=== PATIENT | male | born 1965 | race Caucasian/White ===

== ENCOUNTER 2018-06-24 02:39 | Observation (INO) | payer MEDICAID ==
[~2018-06-24] VITALS: Ht 180.3 cm; Wt 106.8 kg
--- NOTE | ~2018-06-24 | DS ---
PATIENT:MEHDI RANDALL :65 MEDICAL RECORD: [id number] DISCHARGE SUMMARY ADMISSION DATE: 06/24/18 DISCHARGE DATE: 06/24/18 DATE OF ADMISSION: 06/24/2018 DATE OF DISCHARGE: 06/24/2018. ADMISSION DIAGNOSES: Chest pain, anginal symptoms with risk factors, COPD. DISCHARGE DIAGNOSES: Patient left AMA, concerned for the above. HOSPITAL COURSE: The patient was admitted to the ER, was seen in the ER. Cardiology was consulted. Discussed case with cardiology, also consulted pulmonology. The patient became frustrated with being stuck in the ER with no beds available in the hospital, signed out AMA. See chart for further details. TRANSINT:[id number] Voice Confirmation ID: [id number] DOCUMENT ID: [id number] KADY SPANGLER DO at 0927 CC: [id number] DICTATION DATE: 07/19/18 120 DUCTFIXING PLUMBER: 07/20/18 0147 DIS IN 06/24/18 [place] [id number] [place] [address]
--- NOTE | ~2018-06-24 | HP ---
PATIENT: MEHDI RANDALL MEDICAL RECORD: [id number] ACCOUNT: [id number] [facility] : 65 ADMISSION DATE: 06/24/18 PCP: KADY SPANGLER DO HISTORY AND PHYSICAL EXAMINATION HISTORY OF PRESENT ILLNESS: A 53-year-old male presented to the Emergency Room with shortness of breath, chest pain and pressure. The patient has been having worsening shortness of breath over the past 2 weeks, had been having chest pain, heaviness, feels like something sitting on his chest pain off and on for the past 2 weeks. No reported prior cardiac history. Does have a history of COPD, obstructive sleep apnea, has had episodic chills over the past week, has not been seen in the clinic in over a year. MEDICATIONS: No reported current medications. ALLERGIES: Reported as CONTRAST IODINE. SOCIAL HISTORY: Former smoker. REVIEW OF SYSTEMS: GENERAL: Admits intentional weight loss. HEENT: Denies cephalgia, visual changes, tinnitus, epistaxis, or dysphagia. CARDIOVASCULAR: Chest pain, pressure as above. MUSCULOSKELETAL: No acute changes. ENDOCRINE: Denies polyuria, polydipsia or polyphagia. PULMONARY: Denies hemoptysis. Does admit to shortness of breath. History as above. PHYSICAL EXAMINATION: VITAL SIGNS: Temp 98.1, heart rate 83, respirations 15, blood pressure 118/90, O2 sats 94%. On admission, heart rate was 121, respirations were 22, O2 sats 93%. NEUROLOGIC: The patient is alert and oriented, no present distress. HEENT: Normocephalic, atraumatic. Eyes: Pupils are equally round and reactive. Ears: Canals patent, TMs are intact. Nose: Nares patent without drainage. Throat: No erythema, no exudates. NECK: Supple. No lymphadenopathy, no JVD. HEART: Regular rate and rhythm. No S3, S4, no rub. LUNGS: Clear to auscultation bilaterally. Breathing is nonlabored. ABDOMEN: Soft, nontender. Bowel sounds positive. EXTREMITIES: Present times 4. NEUROLOGIC: Intact. SKIN: Warm and dry. No rash. LABORATORY DATA: Troponin less than 0.017. CBC: White count 11.7, hemoglobin 16.9, hematocrit 49.2, platelets 236. D-dimer is 0.27. Chemistry shows a sodium of 141, potassium 3.6, chloride 105, bicarbonate 29.6, BUN 13, creatinine 0.9, glucose 127. T-bili is 0.22. Lipase 153. Chest x-ray: No evidence of pneumothorax, no acute cardiopulmonary process. CT of the chest: Mild ground-glass density opacity changes with mosaic pattern in upper lobes, otherwise no focal consolidation of the lungs. EKG: Normal sinus rhythm, rate of 85. ABG: pH 7.447, pCO2 36.7, pO2 of 57, bicarbonate 25.3, O2 sat is 90.7. HISTORY AND PHYSICAL [id number] MEHDI RANDALL ASSESSMENT AND PLAN: 1. Chest pain, pressure, heaviness, multiple risk factors for cardiovascular disease. Cardiology consulted. 2. COPD with likely exacerbation, nebulizers q.i.d. We will consult pulmonology. 3. Polycythemia vera. Aspirin 81 mg 2 p.o. daily. Supportive care. TRANSINT:[id number] Voice Confirmation ID: [id number] DOCUMENT ID: [id number] KADY SPANGLER DO at 0809 CC: [id number] DICTATION DATE: 06/24/18 0805 PERINATAL BREASTFEEDING ASSISTANT: 06/24/18 1027 DIS IN 06/24/18 [place] [id number] [facility] [place] [address]
[~2018-06-24 02:39] MED LIST: FLUTICASONE PRO16 GM NS; HYDROCODON-ACE1 EAC7; HYDROCODONE-APA1 TAB PO; INDOCIN25 MG PO; IPRAT-ALBUT 0.5-3 ML IH; LEVAQUIN500 MG PO; MORPHINE SULF5 MG/ML IV; OMNICEF300 MG PO; ONDANSETRON4 MG/2 M3 IV; PERFOROMIS20 MCG/21 NEB; PREDNISONE20 MG PO; PULMICORT0.5 MG/21 NEB; ROBAXIN-750750 MG PO; ROCEPHIN 1 GM IN1 GM IV; SINGULAIR10 MG PO; STERAPRED DS 1210 MG PO; ZITHROMAX 500M500 MG IV
[2018-06-24 02:45] VITALS: Ht 180.3 cm; Wt 106.8 kg
[2018-06-24 03:14] LABS: BASOPHILS 0.4 % (0-2); EOSINOPHILS 3.7 % (0-7); HEMATOCRIT 49.2 % (42.0-54.0); HEMOGLOBIN 16.9 g/dL (13.5-17.5); IMMATURE GRANULOCYTES 0.7 % (0-5); LYMPHOCYTES 19.4 % (15-50); MCH 31.8 pg (26.0-34.0); MCHC 34.3 g/dL (31.0-37.0); MCV 92.5 fL (80.0-100.0); MEAN PLATELET VOLUME 9.9 fL (7.4-10.4); MONOCYTES 9.6 % (2-11); NEUTROPHILS 66.2 % (40-80); PLATELET COUNT 236 10x3/uL (130-400); RBC 5.32 10x6/uL (4.20-6.10); WBC 11.7 10x3/uL (4.8-10.8)
[2018-06-24 03:33] LABS: ALBUMIN 2.8 g/dL (3.4-5.0); ALKALINE PHOSPHATASE 208 U/L (46-116); ALT (SGPT) 21 U/L (10-68); BILIRUBIN - TOTAL 0.22 mg/dL (0.2-1.3); CALC OSMOLALITY 282 mosm/kg (275-300); CALCIUM 8.5 mg/dL (8.5-10.1); CARBON DIOXIDE 29.6 mmol/L (21.0-32.0); CHLORIDE - SERUM 105 mmol/L (98-107); CREATININE - SERUM 0.9 mg/dL (0.6-1.3); GLUCOSE 127 mg/dL (74-106); POTASSIUM - SERUM 3.6 mmol/L (3.5-5.1); PROTEIN - SERUM 6.9 g/dL (6.4-8.2); SODIUM 141 mmol/L (136-145); UREA NITROGEN 13 mg/dL (7-18); eGFR NON AFRICAN AMERICAN > 90 mL/min (90-120)
[2018-06-24 03:42] LABS: LIPASE 153 U/L (73-393); PRO BNP 46 pg/mL (0-125); TROPONIN-I < 0.017 ng/mL (0.000-0.060)
[2018-06-24 04:00] VITALS: BP 111/69
[2018-06-24 05:00] VITALS: BP 130/86
[2018-06-24 06:00] VITALS: BP 118/90
[2018-06-24 07:00] VITALS: BP 119/67
[2018-06-24 11:00] VITALS: BP 110/86
[2018-06-24 14:02] VITALS: BP 133/89
== END 2018-06-24 14:04 | disposition left against medical advice (07) ==
LOC: D.ER 02:39 → D.EDHOLD 06:03 → OBSVTIME 06:03 → D.EDHOLD 14:04
PROVIDERS: Family Medicine
DX: R07.9 Chest pain, unspecified (principal); J44.9 Chronic obstructive pulmonary disease, unspecified; G47.33 Obstructive sleep apnea (adult) (pediatric); D45 Polycythemia vera; Z87.891 Personal history of nicotine dependence

== ENCOUNTER 2019-01-15 19:11 | Inpatient (IN) | payer MEDICAID ==
[~2019-01-15] VITALS: Ht 180.3 cm; Wt 127.3 kg
[2019-01-15 20:08] LABS: BASOPHILS 0.2 % (0-2); EOSINOPHILS 0.3 % (0-7); HEMATOCRIT 54.4 % (42.0-54.0); IMMATURE GRANULOCYTES 0.5 % (0-5); LYMPHOCYTES 7.3 % (15-50); MCH 31.4 pg (26.0-34.0); MCHC 34.9 g/dL (31.0-37.0); MCV 89.8 fL (80.0-100.0); MEAN PLATELET VOLUME 10.6 fL (7.4-10.4); MONOCYTES 10.5 % (2-11); NEUTROPHILS 81.2 % (40-80); RBC 6.06 10x6/uL (4.20-6.10); RDW 14.3 % (11.5-14.5); WBC 12.8 10x3/uL (4.8-10.8)
[2019-01-15 20:13] LABS: PLATELET COUNT 182 10x3/uL (130-400)
[2019-01-15 20:16] LABS: APTT 40.2 SECONDS (22.8-39.4); INR 1.25 (0.85-1.17); PROTIME 15.1 SECONDS (11.6-15.0)
[2019-01-15 21:02] LABS: ALBUMIN 2.6 g/dL (3.4-5.0); ALKALINE PHOSPHATASE 40 U/L (46-116); ALT (SGPT) 15 U/L (10-68); CALC OSMOLALITY 266 mosm/kg (275-300); CARBON DIOXIDE 27.5 mmol/L (21.0-32.0); CHLORIDE - SERUM 99 mmol/L (98-107); CREATININE - SERUM 0.9 mg/dL (0.6-1.3); GLUCOSE 154 mg/dL (74-106); POTASSIUM - SERUM 3.7 mmol/L (3.5-5.1); SODIUM 131 mmol/L (136-145); UREA NITROGEN 15 mg/dL (7-18); eGFR NON AFRICAN AMERICAN > 90 mL/min (90-120)
[2019-01-15 21:15] LABS: CKMB 0.7 U/L (0.0-3.6); CREATINE KINASE 94 UL (21-232); PRO BNP 90 pg/mL (0-125); TROPONIN-I < 0.017 ng/mL (0.000-0.060)
[2019-01-15] MEDS ORDERED: COMBIVENT RESPIM4 GM INH (21:53)
[2019-01-15] MEDS ORDERED: ALBUTEROL SULF8.5 GM INH (21:53)
[2019-01-15 21:54] VITALS: BP 117/71; Ht 180.3 cm; Wt 127.3 kg
[2019-01-16 03:00] VITALS: BP 126/86
[2019-01-16 06:57] LABS: BASOPHILS 0.1 % (0-2); EOSINOPHILS 0 % (0-7); HEMATOCRIT 54.3 % (42.0-54.0); HEMOGLOBIN 18.3 g/dL (13.5-17.5); IMMATURE GRANULOCYTES 0.4 % (0-5); LYMPHOCYTES 2.9 % (15-50); MCH 30.9 pg (26.0-34.0); MCHC 33.7 g/dL (31.0-37.0); MCV 91.7 fL (80.0-100.0); MEAN PLATELET VOLUME 10.8 fL (7.4-10.4); MONOCYTES 1.5 % (2-11); NEUTROPHILS 95.1 % (40-80); PLATELET COUNT 158 10x3/uL (130-400); RBC 5.92 10x6/uL (4.20-6.10); RDW 14.6 % (11.5-14.5); WBC 12.8 10x3/uL (4.8-10.8)
[2019-01-16 07:20] LABS: ALBUMIN 2.7 g/dL (3.4-5.0); ALKALINE PHOSPHATASE 42 U/L (46-116); ALT (SGPT) 18 U/L (10-68); BILIRUBIN - TOTAL 0.51 mg/dL (0.2-1.3); CALCIUM 8.1 mg/dL (8.5-10.1); CHLORIDE - SERUM 101 mmol/L (98-107); CREATININE - SERUM 0.9 mg/dL (0.6-1.3); PROTEIN - SERUM 7.6 g/dL (6.4-8.2); SODIUM 134 mmol/L (136-145); eGFR NON AFRICAN AMERICAN > 90 mL/min (90-120)
[2019-01-16 07:22] LABS: CALC OSMOLALITY 272 mosm/kg (275-300); GLUCOSE 215 mg/dL (74-106); POTASSIUM - SERUM 4.8 mmol/L (3.5-5.1); UREA NITROGEN 11 mg/dL (7-18)
[2019-01-16 09:04] VITALS: BP 119/69
--- NOTE | 2019-01-16 10:00 | NUR ---
ALERT AND ORIENTED. O2 3 LITERS N/C. DENIES ANY SOB AT THIS TIME. DIMINISHED BREATH SOUNDS TO BLQ POSTERIIOR. UP ADLIB WITH IVF INFUSING AT PRESCRIBED RATE TO RT. A/C. ENCOURAGED TO RIO CALL LIGHT FOR ASSSIT.
[2019-01-16 13:22] VITALS: BP 126/77
--- NOTE | 2019-01-16 14:04 | NUR ---
PT REFUSING TO STAY TO RECEIVE TREATMENT. INSTRUCTED ON BENEFITS OF IMPROVED CARE WITH STAYING. STATED WAS LEAVING. INSTRUCTED ON LEAVING AMA AND VERBALIZED WANTED TO LEAVE. DR. LOPEZ NOTIFIED. IV DISCONTINUED WITH SIGNING AMA FORM. LEFT UNDER THE CARE OF .
== END 2019-01-16 14:10 | disposition left against medical advice (07) | DRG 193 ==
LOC: D.ER 19:11 → D.MS 20:28
PROVIDERS: Family Medicine; ADMIT Emergency Medicine; ATTEND Emergency Medicine
DX: J18.9 Pneumonia, unspecified organism (principal); J96.01 Acute respiratory failure with hypoxia; J44.0 Chronic obstructive pulmonary disease with (acute) lower respiratory infection; F17.213 Nicotine dependence, cigarettes, with withdrawal; E87.0 Hyperosmolality and hypernatremia; E86.0 Dehydration; E66.9 Obesity, unspecified

== ENCOUNTER 2019-01-18 02:58 | Inpatient (IN) | payer MEDICAID ==
[~2019-01-18] VITALS: Ht 180.3 cm; Wt 127.0 kg
[~2019-01-18 02:58] MED LIST changes: +ALBUTEROL SULF8.5 GM INH; +COMBIVENT RESPIM4 GM INH
[2019-01-18 03:22] LABS: BASOPHILS 0.1 % (0-2); EOSINOPHILS 0.5 % (0-7); HEMATOCRIT 51.6 % (42.0-54.0); IMMATURE GRANULOCYTES 0.6 % (0-5); LYMPHOCYTES 7.9 % (15-50); MCH 30.6 pg (26.0-34.0); MCHC 32.9 g/dL (31.0-37.0); MCV 92.8 fL (80.0-100.0); MEAN PLATELET VOLUME 10.9 fL (7.4-10.4); NEUTROPHILS 79.9 % (40-80); PLATELET COUNT 180 10x3/uL (130-400); RBC 5.56 10x6/uL (4.20-6.10); RDW 14.6 % (11.5-14.5); WBC 11.7 10x3/uL (4.8-10.8)
[2019-01-18 03:27] LABS: APTT 33.2 SECONDS (22.8-39.4); INR 1.08 (0.85-1.17); PROTIME 13.5 SECONDS (11.6-15.0)
[2019-01-18 03:32] LABS: ALBUMIN 2.6 g/dL (3.4-5.0); ALKALINE PHOSPHATASE 43 U/L (46-116); BILIRUBIN - TOTAL 0.24 mg/dL (0.2-1.3); CALCIUM 7.8 mg/dL (8.5-10.1); CARBON DIOXIDE 28.7 mmol/L (21.0-32.0); CHLORIDE - SERUM 102 mmol/L (98-107); CREATININE - SERUM 0.9 mg/dL (0.6-1.3); PROTEIN - SERUM 6.6 g/dL (6.4-8.2); SODIUM 137 mmol/L (136-145); UREA NITROGEN 13 mg/dL (7-18); eGFR NON AFRICAN AMERICAN > 90 mL/min (90-120)
[2019-01-18 03:36] LABS: ALT (SGPT) 23 U/L (10-68); CALC OSMOLALITY 283 mosm/kg (275-300); GLUCOSE 273 mg/dL (74-106); POTASSIUM - SERUM 3.9 mmol/L (3.5-5.1)
[2019-01-18 03:44] LABS: CKMB 2.5 U/L (0.0-3.6); CREATINE KINASE 44 UL (21-232); PRO BNP 180 pg/mL (0-125); TROPONIN-I < 0.017 ng/mL (0.000-0.060)
[2019-01-18 05:29] VITALS: BP 126/76; BMI 39.1
[2019-01-18 09:00] VITALS: BP 123/75
[2019-01-18 12:00] VITALS: BP 112/57
[2019-01-18 13:16] VITALS: Ht 180.3 cm; Wt 127.0 kg
[2019-01-18 15:51] LABS: APPEARANCE CLEAR (CLEAR); BILIRUBIN NEGATIVE (NEGATIVE); COLOR YELLOW (YELLOW); GLUCOSE 1000 mg/dL (NEGATIVE); KETONE NEGATIVE (NEGATIVE); NITRITE NEGATIVE (NEGATIVE); PROTEIN NEGATIVE (NEGATIVE); SPECIFIC GRAVITY 1.015 (1.005-1.020); UROBILINOGEN NORMAL (NORMAL)
--- NOTE | 2019-01-18 16:15 | MORECARE ---
CASE MANAGEMENT DISCHARGE SUMMARY PATIENT: MEHDI RANDALL UNIT: [id number] ADM DATE: 01/18/19 AGE: 53 : 65 SEX: M ROOM/BED: D.2223 AUTHOR: LINDSAY SON PHYSICIAN: REFERRING PHYSICIAN: EDY LOPEZ MD DATE OF SERVICE: 01/18/19 Discharge Plan Patient Name: MEHDI RANDALL Facility: [facility]:[place] : 1965 Planned Disposition: Anticipated Discharge Date: Discharge Date: Expected LOS: Initial Reviewer: [email or web address] Initial Review Date: 01/18/2019 Generated: 01/18/19 5:14 pm Comments DCP- Discharge Planning Updated by [email or web address]: Rehana Devika on 01/18/19 3:[address] CM went to room to discuss his CPAP and supplies and he is asleep. I have an order about having [facility] in [place] to replace his tubing and mask for his CPAP. I called and spoke to Ann and she states if he is their patient, she will have them deliver it to his room. She will call me back if he is not their patient. CM will meet with him tomorrow. External Providers External Provider: [facility] Next Contact Date: Service Request Date: Service Type: Resolution: Reviewer: Comments: Patient Name: MEHDI RANDALL Page [phone] at 1615 All edits/amendments must be made on the electronic document DICTATION DATE: 01/18/19 1614 OFFSET PLATEMAKER: HARIS 01/18/19 1614 RPT#: [id number] DC DATE: STATUS: ADM IN [facility] [address] [place] [address] END OF REPORT
--- NOTE | 2019-01-18 17:02 | MORECARE ---
CASE MANAGEMENT DISCHARGE SUMMARY PATIENT: MEHDI RANDALL UNIT: [id number] ADM DATE: 01/18/19 AGE: 53 : 65 SEX: M ROOM/BED: D.2223 AUTHOR: LINDSAY SON PHYSICIAN: REFERRING PHYSICIAN: EDY LOPEZ MD DATE OF SERVICE: 01/18/19 Discharge Plan Patient Name: MEHDI RANDALL Facility: [facility]:[place] : 1965 Planned Disposition: Home Anticipated Discharge Date: Discharge Date: Expected LOS: Initial Reviewer: [email or web address] Initial Review Date: 01/18/2019 Generated: 01/18/19 6:02 pm Comments DCP- Discharge Planning Updated by [email or web address]: Rehana Devika on 01/18/19 3:[address] CM went to room to discuss his CPAP and supplies and he is asleep. I have an order about having [facility] in [place] to replace his tubing and mask for his CPAP. I called and spoke to Ann and she states if he is their patient, she will have them deliver it to his room. She will call me back if he is not their patient. CM will meet with him tomorrow. DCPIA - Discharge Planning Initial Assessment Updated by [email or web address]: Rehana Devika on 01/18/19 4:58 pm * Is the patient Alert and Oriented? Yes * How many steps to enter\exit or inside your home? 0/0 * PCP None * Pharmacy [facility] * Preadmission Environment Home with Family * ADLs Independent * Equipment CPAP * List name and contact numbers for known caregivers / representatives who currently or will assist patient after discharge: Puja ratliff?e - [phone] * Verbal permission to speak to the caregivers and representatives has been obtained from the patient. Yes * Community resources currently utilized None * Additional services required to return to the preadmission environment? Yes * Can the patient safely return to the preadmission environment? Yes * Has this patient been hospitalized within the prior 30 days at any hospital? Yes Last DP export: 01/18/19 3:15 pm Patient Name: MEHDI RANDALL Page [phone] at 1702 All edits/amendments must be made on the electronic document DICTATION DATE: 01/18/191700 SENIOR HEALTH PHYSICS TECHNICIAN: HARIS 01/18/191700 RPT#: [id number] DC DATE: STATUS: ADM IN [facility] [address] [place] [address] END OF REPORT
--- NOTE | 2019-01-18 17:12 | MORECARE ---
CASE MANAGEMENT DISCHARGE SUMMARY PATIENT: MEHDI RANDALL UNIT: [id number] ADM DATE: 01/18/19 AGE: 53 : 65 SEX: M ROOM/BED: D.2223 AUTHOR: LINDSAY SON PHYSICIAN: REFERRING PHYSICIAN: EDY LOPEZ MD DATE OF SERVICE: 01/18/19 Discharge Plan Patient Name: MEHDI RANDALL Facility: [facility]:[place] : 1965 Planned Disposition: Home Anticipated Discharge Date: Discharge Date: Expected LOS: Initial Reviewer: [email or web address] Initial Review Date: 01/18/2019 Generated: 01/18/19 6:12 pm Comments DCP- Discharge Planning Updated by [email or web address]: Rehana Fortune on 01/18/19 4:[address] Patient Name: MEHDI RANDALL Admission Status: ER Accout number: [id number] Admission Date: 01-18-2019 : 1965 Admission Diagnosis: Attending: EDY LOPEZ Current LOS: 1 Anticipated DC Date: Planned Disposition: Home Primary Insurance: MEDICAID [place] Discharge Planning Comments: CM met with patient to discuss discharge planning/needs, he is alone in the room. He states he lives with his fianc?e. States he is independent with all ADL's and AIDL's. I discussed availability of rehab, home health and additional DME. I informed him that I had an order to replace his CPAP equipment, I informed him that I had called [facility] and they did not have a record of his CPAP. Patient states he bought it on line for douglas. He states Dr. Bhatti should have a record of his sleep study. I called Dr. Bhatti's office and spoke to Etta. She will fax his sleep study from 2013. She states they have not seen him since 2016. He does not have a PCP. I gave the numbers to [facility], Physician referral line and [facility]. I will attempt to call [facility] when they are open in the morning. CM will continue to follow and assist with discharge planning/needs. Bench Patternmaker Metal: Rehana Fortune DCP- Discharge Planning Updated by [email or web address]: Rehana Fortune on 01/18/19 3:[address] CM went to room to discuss his CPAP and supplies and he is asleep. I have an order about having [facility] in [place] to replace his tubing and mask for his CPAP. I called and spoke to Ann and she states if he is their patient, she will have them deliver it to his room. She will call me back if he is not their patient. CM will meet with him tomorrow. DCPIA - Discharge Planning Initial Assessment Updated by [email or web address]: Rehana Fortune on 01/18/19 4:58 pm * Is the patient Alert and Oriented? Yes * How many steps to enter\exit or inside your home? 0/0 * PCP None * Pharmacy [place] * Preadmission Environment Home with Family * ADLs Independent * Equipment CPAP * List name and contact numbers for known caregivers / representatives who currently or will assist patient after discharge: Puja ratliff?e - [phone] * Verbal permission to speak to the caregivers and representatives has been obtained from the patient. Yes * Community resources currently utilized None * Additional services required to return to the preadmission environment? Yes * Can the patient safely return to the preadmission environment? Yes * Has this patient been hospitalized within the prior 30 days at any hospital? Yes Last DP export: 01/18/19 4:02 pm Patient Name: MEHDI RANDALL Page [phone] at 1712 All edits/amendments must be made on the electronic document DICTATION DATE: 01/18/191711 TOW MOTOR OPERATOR: HARIS 01/18/191711 RPT#: [id number] DC DATE: STATUS: ADM IN [facility] [address] [place] [address] END OF REPORT
[2019-01-18 18:35] VITALS: BP 133/71
[2019-01-18 20:00] VITALS: BP 123/61
[2019-01-19] VITALS: BP 133/75
[2019-01-19 04:30] VITALS: BP 124/73
[2019-01-19 05:15] LABS: BASOPHILS 0 % (0-2); EOSINOPHILS 0 % (0-7); HEMOGLOBIN 17.3 g/dL (13.5-17.5); IMMATURE GRANULOCYTES 0.4 % (0-5); LYMPHOCYTES 4.5 % (15-50); MCH 30.5 pg (26.0-34.0); MCHC 32.6 g/dL (31.0-37.0); MCV 93.5 fL (80.0-100.0); MEAN PLATELET VOLUME 11.7 fL (7.4-10.4); MONOCYTES 4.7 % (2-11); NEUTROPHILS 90.4 % (40-80); PLATELET COUNT 208 10x3/uL (130-400); RBC 5.67 10x6/uL (4.20-6.10); RDW 14.2 % (11.5-14.5); WBC 8.9 10x3/uL (4.8-10.8)
[2019-01-19 05:30] LABS: CALC OSMOLALITY 287 mosm/kg (275-300); CALCIUM 8.7 mg/dL (8.5-10.1); CARBON DIOXIDE 28.9 mmol/L (21.0-32.0); CHLORIDE - SERUM 101 mmol/L (98-107); CREATININE - SERUM 0.9 mg/dL (0.6-1.3); GLUCOSE 267 mg/dL (74-106); POTASSIUM - SERUM 4.3 mmol/L (3.5-5.1); SODIUM 139 mmol/L (136-145); UREA NITROGEN 14 mg/dL (7-18); eGFR NON AFRICAN AMERICAN > 90 mL/min (90-120)
[2019-01-19 07:00] VITALS: BP 136/91
--- NOTE | 2019-01-19 09:33 | MORECARE ---
CASE MANAGEMENT DISCHARGE SUMMARY PATIENT: MEHDI RANDALL UNIT: [id number] ADM DATE: 01/18/19 AGE: 53 : 65 SEX: M ROOM/BED: D.2223 AUTHOR: LINDSAY SON PHYSICIAN: REFERRING PHYSICIAN: EDY LOPEZ MD DATE OF SERVICE: 01/19/19 Discharge Plan Patient Name: MEHDI RANDALL Facility: [facility]:[place] : 1965 Planned Disposition: Home Anticipated Discharge Date: Discharge Date: Expected LOS: Initial Reviewer: [email or web address] Initial Review Date: 01/18/2019 Generated: 01/19/19 10:33 am Comments DCP- Discharge Planning Updated by [email or web address]: Rehana Fortune on 01/19/19 8:[address] Spoke with Ann at [facility] and faxed order and sleep study report from Dr. Bhatti's office. She states she will need other notes from Dr. Bhatti's office in order to get a CPAP and will also need authorization from Medicaid. CM will continue to assist with discharge planning/needs. DCP- Discharge Planning Updated by [email or web address]: Rehana Fortune on 01/18/19 4:[address] Patient Name: MEHDI RANDALL Admission Status: ER Accout number: [id number] Admission Date: 01-18-2019 : 1965 Admission Diagnosis: Attending: EDY LOPEZ Current LOS: 1 Anticipated DC Date: Planned Disposition: Home Primary Insurance: MEDICAID [place] Discharge Planning Comments: CM met with patient to discuss discharge planning/needs, he is alone in the room. He states he lives with his fianc?e. States he is independent with all ADL's and AIDL's. I discussed availability of rehab, home health and additional DME. I informed him that I had an order to replace his CPAP equipment, I informed him that I had called [facility] and they did not have a record of his CPAP. Patient states he bought it on line for douglas. He states Dr. Bhatti should have a record of his sleep study. I called Dr. Bhatti's office and spoke to Etta. She will fax his sleep study from 2013. She states they have not seen him since 2017. He does not have a PCP. I gave the numbers to [facility], Physician referral line and [facility]. I will attempt to call [facility] when they are open in the morning. CM will continue to follow and assist with discharge planning/needs. Braille Proofreader: Rehana Fortune DCP- Discharge Planning Updated by [email or web address]: Rehana Fortune on 01/18/19 3:[address] CM went to room to discuss his CPAP and supplies and he is asleep. I have an order about having [facility] in [place] to replace his tubing and mask for his CPAP. I called and spoke to Ann and she states if he is their patient, she will have them deliver it to his room. She will call me back if he is not their patient. CM will meet with him tomorrow. DCPIA - Discharge Planning Initial Assessment Updated by [email or web address]: Rehana Fortune on 01/18/19 4:58 pm * Is the patient Alert and Oriented? Yes * How many steps to enter\exit or inside your home? 0/0 * PCP None * Pharmacy [place] * Preadmission Environment Home with Family * ADLs Independent * Equipment CPAP * List name and contact numbers for known caregivers / representatives who currently or will assist patient after discharge: Puja ratliff?e - [phone] * Verbal permission to speak to the caregivers and representatives has been obtained from the patient. Yes * Community resources currently utilized None * Additional services required to return to the preadmission environment? Yes * Can the patient safely return to the preadmission environment? Yes * Has this patient been hospitalized within the prior 30 days at any hospital? Yes Last DP export: 01/18/19 4:12 pm Patient Name: MEHDI RANDALL Page [phone] at 0933 All edits/amendments must be made on the electronic document DICTATION DATE: 01/19/19931 CAREER CENTER ADVISOR: HARIS 01/19/19931 RPT#: [id number] DC DATE: STATUS: ADM IN [facility] [address] [place] [address] END OF REPORT
[2019-01-19 11:00] VITALS: BP 128/87
--- NOTE | 2019-01-19 13:00 | MORECARE ---
CASE MANAGEMENT DISCHARGE SUMMARY PATIENT: MEHDI RANDALL UNIT: [id number] ADM DATE: 01/18/19 AGE: 53 : 65 SEX: M ROOM/BED: D.2223 AUTHOR: LINDSAY SON PHYSICIAN: REFERRING PHYSICIAN: EDY LOPEZ MD DATE OF SERVICE: 01/19/19 Discharge Plan Patient Name: MEHDI RANDALL Facility: [facility]:[place] : 1965 Planned Disposition: Home Anticipated Discharge Date: Discharge Date: Expected LOS: Initial Reviewer: [email or web address] Initial Review Date: 01/18/2019 Generated: 01/19/19 2:00 pm Comments DCP- Discharge Planning Updated by [email or web address]: Rehana Fortune on 01/19/19 11:[address] Met with patient and his fianc?e about finding a primary care doctor. I provided them with the [facility] number to have them call today. I also spoke with Dr. Bhatti and he states patient will need a nebulizer for home use. I faxed the order and spoke to Brittny. CM will continue to follow and assist with discharge planning/needs. DCP- Discharge Planning Updated by [email or web address]: Rehana Fortune on 01/19/19 8:[address] Spoke with Ann at [facility] and faxed order and sleep study report from Dr. Bhatti's office. She states she will need other notes from Dr. Bhatti's office in order to get a CPAP and will also need authorization from Medicaid. CM will continue to assist with discharge planning/needs. DCP- Discharge Planning Updated by [email or web address]: Rehana Fortune on 01/18/19 4:[address] Patient Name: MEHDI RANDALL Admission Status: ER Accout number: [id number] Admission Date: 01-18-2019 : 1965 Admission Diagnosis: Attending: EDY LOPEZ Current LOS: 1 Anticipated DC Date: Planned Disposition: Home Primary Insurance: MEDICAID [place] Discharge Planning Comments: CM met with patient to discuss discharge planning/needs, he is alone in the room. He states he lives with his fianc?e. States he is independent with all ADL's and AIDL's. I discussed availability of rehab, home health and additional DME. I informed him that I had an order to replace his CPAP equipment, I informed him that I had called [facility] and they did not have a record of his CPAP. Patient states he bought it on line for douglas. He states Dr. Bhatti should have a record of his sleep study. I called Dr. Bhatti's office and spoke to Etta. She will fax his sleep study from 2013. She states they have not seen him since 2016. He does not have a PCP. I gave the numbers to [facility], Physician referral line and [facility]. I will attempt to call [facility] when they are open in the morning. CM will continue to follow and assist with discharge planning/needs. Green End Man: Rehana Fortune DCP- Discharge Planning Updated by [email or web address]: Rehana Fortune on 01/18/19 3:[address] CM went to room to discuss his CPAP and supplies and he is asleep. I have an order about having [facility] in [place] to replace his tubing and mask for his CPAP. I called and spoke to Ann and she states if he is their patient, she will have them deliver it to his room. She will call me back if he is not their patient. CM will meet with him tomorrow. DCPIA - Discharge Planning Initial Assessment Updated by [email or web address]: Rehana Fortune on 01/18/19 4:58 pm * Is the patient Alert and Oriented? Yes * How many steps to enter\exit or inside your home? 0/0 * PCP None * Pharmacy [place] * Preadmission Environment Home with Family * ADLs Independent * Equipment CPAP * List name and contact numbers for known caregivers / representatives who currently or will assist patient after discharge: Puja ratliff?e - [phone] * Verbal permission to speak to the caregivers and representatives has been obtained from the patient. Yes * Community resources currently utilized None * Additional services required to return to the preadmission environment? Yes * Can the patient safely return to the preadmission environment? Yes * Has this patient been hospitalized within the prior 30 days at any hospital? Yes Coverage Notice Reviewer: [email or web address] - Rehana Fortune Notice Issued Date-Time: 01/18/2019 16:55 Notice Type: Patient Choice Letter Notice Delivered To: Patient Relationship to Patient: Cell Pourer Name: Delivery Method: HAND - Hand Delivered Naomi Days: Prior Verbal Notification: Recipient Understood Notice: Yes Recipient Signature: Yes Med Rec Note Co-signed by Attending: Coverage Notice Comment: YAQUELIN for 1. [facility] 2. Carol Last DP export: 01/19/19 8:33 am Patient Name: MEHDI RANDALL Page [id number] at 1300 All edits/amendments must be made on the electronic document DICTATION DATE: 01/19/19 1300 PUBLIC INTERVIEWER: HARIS 01/19/19 1300 RPT#: [id number] DC DATE: STATUS: ADM IN [facility] [address] [place] [address] END OF REPORT
[2019-01-19 17:11] VITALS: BP 124/62
[2019-01-20] VITALS: BP 144/80
[2019-01-20 04:00] VITALS: BP 128/78
[2019-01-20 06:47] LABS: BASOPHILS 0.2 % (0-2); EOSINOPHILS 0.1 % (0-7); HEMATOCRIT 51.4 % (42.0-54.0); HEMOGLOBIN 17.2 g/dL (13.5-17.5); IMMATURE GRANULOCYTES 1.8 % (0-5); LYMPHOCYTES 9.6 % (15-50); MCH 30.9 pg (26.0-34.0); MCHC 33.5 g/dL (31.0-37.0); MCV 92.4 fL (80.0-100.0); MEAN PLATELET VOLUME 11.1 fL (7.4-10.4); MONOCYTES 10.7 % (2-11); NEUTROPHILS 77.6 % (40-80); PLATELET COUNT 206 10x3/uL (130-400); RBC 5.56 10x6/uL (4.20-6.10); RDW 14.2 % (11.5-14.5); WBC 9.6 10x3/uL (4.8-10.8)
[2019-01-20 06:59] LABS: CARBON DIOXIDE 32.1 mmol/L (21.0-32.0); CHLORIDE - SERUM 99 mmol/L (98-107); CREATININE - SERUM 0.8 mg/dL (0.6-1.3); POTASSIUM - SERUM 4.1 mmol/L (3.5-5.1); SODIUM 137 mmol/L (136-145); eGFR NON AFRICAN AMERICAN > 90 mL/min (90-120)
[2019-01-20 07:00] LABS: CALC OSMOLALITY 288 mosm/kg (275-300); GLUCOSE 315 mg/dL (74-106); UREA NITROGEN 20 mg/dL (7-18)
[2019-01-20 08:54] VITALS: BP 104/71
[2019-01-20 12:43] VITALS: BP 111/63
--- NOTE | 2019-01-20 13:41 | MORECARE ---
CASE MANAGEMENT DISCHARGE SUMMARY PATIENT: MEHDI RANDALL UNIT: [id number] ADM DATE: 01/18/19 AGE: 53 : 65 SEX: M ROOM/BED: D.2223 AUTHOR: LINDASY SON PHYSICIAN: REFERRING PHYSICIAN: DEY LOPEZ MD DATE OF SERVICE: 01/20/19 Discharge Plan Patient Name: MEHDI RANDALL Facility: [facility]:[place] : 1965 Planned Disposition: Home Anticipated Discharge Date: Discharge Date: Expected LOS: Initial Reviewer: [email or web address] Initial Review Date: 01/18/2019 Generated: 01/20/19 2:41 pm Comments DCP- Discharge Planning Updated by [email or web address]: Rehana Fortune on 01/20/19 12:[address] Walk test completed, he qualifies for home oxygen at this time. I called Ann at [facility] and clinical and order faxed. CM will continue to follow and assist with discharge planning/needs. DCP- Discharge Planning Updated by [id number]: Rehana Fortune on 01/19/19 11:[address] Met with patient and his fianc?e about finding a primary care doctor. I provided them with the [facility] number to have them call today. I also spoke with Dr. Bhatti and he states patient will need a nebulizer for home use. I faxed the order and spoke to Brittny. CM will continue to follow and assist with discharge planning/needs. DCP- Discharge Planning Updated by [email or web address]: Rehana Fortune on 01/19/19 8:[address] Spoke with Ann at [facility] and faxed order and sleep study report from Dr. Bhatti's office. She states she will need other notes from Dr. Bhatti's office in order to get a CPAP and will also need authorization from Medicaid. CM will continue to assist with discharge planning/needs. DCP- Discharge Planning Updated by [id number]: Rehana Fortune on 01/18/19 4:[address] Patient Name: MEHDI RANDALL Admission Status: ER Accout number: [id number] Admission Date: 01-18-2019 : 1965 Admission Diagnosis: Attending: EDY LOPEZ Current LOS: 1 Anticipated DC Date: Planned Disposition: Home Primary Insurance: MEDICAID [place] Discharge Planning Comments: CM met with patient to discuss discharge planning/needs, he is alone in the room. He states he lives with his fianc?e. States he is independent with all ADL's and AIDL's. I discussed availability of rehab, home health and additional DME. I informed him that I had an order to replace his CPAP equipment, I informed him that I had called [facility] and they did not have a record of his CPAP. Patient states he bought it on line for douglas. He states Dr. Bhatti should have a record of his sleep study. I called Dr. Bhatti's office and spoke to Etta. She will fax his sleep study from 2013. She states they have not seen him since 2016. He does not have a PCP. I gave the numbers to [email or web address], Physician referral line and [facility]. I will attempt to call [facility] when they are open in the morning. CM will continue to follow and assist with discharge planning/needs. Computer Operations Manager: Rehana Fortune DCP- Discharge Planning Updated by [id number]: Rehana Fortune on 01/18/19 3:[address] CM went to room to discuss his CPAP and supplies and he is asleep. I have an order about having [facility] in [place] to replace his tubing and mask for his CPAP. I called and spoke to Ann and she states if he is their patient, she will have them deliver it to his room. She will call me back if he is not their patient. CM will meet with him tomorrow. DCPIA - Discharge Planning Initial Assessment Updated by [email or web address]: Rehana Fortune on 01/18/19 4:58 pm * Is the patient Alert and Oriented? Yes * How many steps to enter\exit or inside your home? 0/0 * PCP None * Pharmacy [facility] * Preadmission Environment Home with Family * ADLs Independent * Equipment CPAP * List name and contact numbers for known caregivers / representatives who currently or will assist patient after discharge: Puja Rodriguez - evy?e - [phone] * Verbal permission to speak to the caregivers and representatives has been obtained from the patient. Yes * Community resources currently utilized None * Additional services required to return to the preadmission environment? Yes * Can the patient safely return to the preadmission environment? Yes * Has this patient been hospitalized within the prior 30 days at any hospital? Yes Coverage Notice Reviewer: [email or web address] Elena Rehana Devika Notice Issued Date-Time: 01/18/2019 16:55 Notice Type: Patient Choice Letter Notice Delivered To: Patient Relationship to Patient: Assistant District Attorney Name: Delivery Method: HAND - Hand Delivered Naomi Days: Prior Verbal Notification: Recipient Understood Notice: Yes Recipient Signature: Yes Med Rec Note Co-signed by Attending: Coverage Notice Comment: YAQUELIN for 1. [facility] 2. [facility] Last DP export: 01/19/19 12:00 pm Patient Name: MEHDI RANDALL Page [id number] at 1341 All edits/amendments must be made on the electronic document DICTATION DATE: 01/20/19 1340 EATING DISORDER SPECIALIST: HARIS 01/20/19 1340 RPT#: [id number] DC DATE: STATUS: ADM IN [facility] [address] [place] [address] END OF REPORT
[2019-01-20 17:05] VITALS: BP 129/74
[2019-01-20 20:00] VITALS: BP 125/68
[2019-01-21 04:20] LABS: BASOPHILS 0.1 % (0-2); EOSINOPHILS 0 % (0-7); HEMATOCRIT 50.2 % (42.0-54.0); HEMOGLOBIN 16.7 g/dL (13.5-17.5); LYMPHOCYTES 5.2 % (15-50); MCH 30.2 pg (26.0-34.0); MCHC 33.3 g/dL (31.0-37.0); MCV 90.8 fL (80.0-100.0); MEAN PLATELET VOLUME 10.5 fL (7.4-10.4); MONOCYTES 6.2 % (2-11); NEUTROPHILS 86.5 % (40-80); PLATELET COUNT 203 10x3/uL (130-400); RBC 5.53 10x6/uL (4.20-6.10); WBC 10.9 10x3/uL (4.8-10.8)
[2019-01-21 04:22] LABS: CALC OSMOLALITY 287 mosm/kg (275-300); CALCIUM 8.8 mg/dL (8.5-10.1); CHLORIDE - SERUM 100 mmol/L (98-107); CREATININE - SERUM 0.9 mg/dL (0.6-1.3); GLUCOSE 283 mg/dL (74-106); POTASSIUM - SERUM 4.6 mmol/L (3.5-5.1); SODIUM 137 mmol/L (136-145); UREA NITROGEN 23 mg/dL (7-18); eGFR NON AFRICAN AMERICAN > 90 mL/min (90-120)
[2019-01-21 09:29] VITALS: BP 128/77
[2019-01-21 13:35] VITALS: BP 141/73
--- NOTE | 2019-01-21 13:40 | MORECARE ---
CASE MANAGEMENT DISCHARGE SUMMARY PATIENT: MEHDI RANDALL UNIT: [id number] ADM DATE: 01/18/19 AGE: 53 : 65 SEX: M ROOM/BED: D.2223 AUTHOR: ADELAIDADOC PHYSICIAN: REFERRING PHYSICIAN: DEY LOPEZ MD DATE OF SERVICE: 01/21/19 Discharge Plan Patient Name: MEHDI RANDALL Facility: [facility]:[place] : 1965 Planned Disposition: Home Anticipated Discharge Date: Discharge Date: Expected LOS: Initial Reviewer: [email or web address] Initial Review Date: 01/18/2019 Generated: 01/21/19 2:39 pm Comments DCP- Discharge Planning Updated by [email or web address]: Rehana Fortune on 01/21/19 12:[address] I spoke with Dr. Bhatti about liter flow for the patient to go home on . He states to have RT walk on oxygen and see what it takes to keep sat >88. Patient required 7L NC for oxygen saturation to be 89% while ambulating. I informed Maral with [facility]. Maral states he will need a large tank for portability. She states to call the [place] office when he is discharged and they will deliver the portable and meet the patient at his house to set oxygen up. Maral states she will check with Ann about the preauth on his CPAP machine. Patient is aware that he can purchase replacement tubing from them, they cannot bill insurance for his original CPAP that he bought over the internet (Dr. Bhatti is aware). CM will continue to follow and assist with discharge planning/needs. DCP- Discharge Planning Updated by [email or web address]: Rehana Devika on 01/20/19 12:[address] Walk test completed, he qualifies for home oxygen at this time. I called Ann at [facility] and clinical and order faxed. CM will continue to follow and assist with discharge planning/needs. DCP- Discharge Planning Updated by [email or web address]: Rehana Fortune on 01/19/19 11:[address] Met with patient and his fianc?e about finding a primary care doctor. I provided them with the [facility] number to have them call today. I also spoke with Dr. Bhatti and he states patient will need a nebulizer for home use. I faxed the order and spoke to Brittny. CM will continue to follow and assist with discharge planning/needs. DCP- Discharge Planning Updated by [id number]: Rehana Fortune on 01/19/19 8:[address] Spoke with Ann at [facility] and faxed order and sleep study report from Dr. Bhatti's office. She states she will need other notes from Dr. Bhatti's office in order to get a CPAP and will also need authorization from Medicaid. CM will continue to assist with discharge planning/needs. DCP- Discharge Planning Updated by [id number]: Rehana Fortune on 01/18/19 4:[address] Patient Name: MEHDI RANDALL Admission Status: ER Accout number: [id number] Admission Date: 01-18-2019 : 1965 Admission Diagnosis: Attending: EDY LOPEZ Current LOS: 1 Anticipated DC Date: Planned Disposition: Home Primary Insurance: MEDICAID [place] Discharge Planning Comments: CM met with patient to discuss discharge planning/needs, he is alone in the room. He states he lives with his fianc?e. States he is independent with all ADL's and AIDL's. I discussed availability of rehab, home health and additional DME. I informed him that I had an order to replace his CPAP equipment, I informed him that I had called [facility] and they did not have a record of his CPAP. Patient states he bought it on line for douglas. He states Dr. Bhatti should have a record of his sleep study. I called Dr. Bhatti's office and spoke to Etta. She will fax his sleep study from 2013. She states they have not seen him since 2017. He does not have a PCP. I gave the numbers to [employer] [facility], Physician referral line and [facility]. I will attempt to call [facility] when they are open in the morning. CM will continue to follow and assist with discharge planning/needs. Metal Sprayer: Rehana Fortune DCP- Discharge Planning Updated by [id number]: Rehana Fortune on 01/18/19 3:[address] CM went to room to discuss his CPAP and supplies and he is asleep. I have an order about having [facility] in [place] to replace his tubing and mask for his CPAP. I called and spoke to Ann and she states if he is their patient, she will have them deliver it to his room. She will call me back if he is not their patient. CM will meet with him tomorrow. DCPIA - Discharge Planning Initial Assessment Updated by [id number]: Rehana Fortune on 01/18/19 4:58 pm * Is the patient Alert and Oriented? Yes * How many steps to enter\exit or inside your home? 0/0 * PCP None * Pharmacy [facility] * Preadmission Environment Home with Family * ADLs Independent * Equipment CPAP * List name and contact numbers for known caregivers / representatives who currently or will assist patient after discharge: Puja ratliff?e - [phone] * Verbal permission to speak to the caregivers and representatives has been obtained from the patient. Yes * Community resources currently utilized None * Additional services required to return to the preadmission environment? Yes * Can the patient safely return to the preadmission environment? Yes * Has this patient been hospitalized within the prior 30 days at any hospital? Yes Coverage Notice Reviewer: [id number] - Rehana Devika Notice Issued Date-Time: 01/18/2019 16:55 Notice Type: Patient Choice Letter Notice Delivered To: Patient Relationship to Patient: Plant Wire Chief Name: Delivery Method: HAND - Hand Delivered Naomi Days: Prior Verbal Notification: Recipient Understood Notice: Yes Recipient Signature: Yes Med Rec Note Co-signed by Attending: Coverage Notice Comment: YAQUELIN for 1. [facility] 2. [facility] Last DP export: 01/20/19 12:41 pm Patient Name: MEHDI RANDALL Page [id number] at 1340 All edits/amendments must be made on the electronic document DICTATION DATE: 01/21/19 1339 FLOW TRADER: HARIS 01/21/19 1339 RPT#: [id number] DC DATE: STATUS: ADM IN [facility] [address] [place] [address] END OF REPORT
[2019-01-21 18:07] VITALS: BP 136/76
[2019-01-21 20:00] VITALS: BP 107/59
[2019-01-22] VITALS: BP 119/72
[2019-01-22 04:00] VITALS: BP 111/74
[2019-01-22 09:06] LABS: BASOPHILS 0.2 % (0-2); EOSINOPHILS 0 % (0-7); HEMATOCRIT 51.4 % (42.0-54.0); HEMOGLOBIN 17.6 g/dL (13.5-17.5); IMMATURE GRANULOCYTES 4.1 % (0-5); LYMPHOCYTES 5.8 % (15-50); MCH 30.7 pg (26.0-34.0); MCHC 34.2 g/dL (31.0-37.0); MCV 89.7 fL (80.0-100.0); MEAN PLATELET VOLUME 10.8 fL (7.4-10.4); MONOCYTES 6.1 % (2-11); NEUTROPHILS 83.8 % (40-80); PLATELET COUNT 202 10x3/uL (130-400); RBC 5.73 10x6/uL (4.20-6.10); WBC 12.5 10x3/uL (4.8-10.8)
[2019-01-22 09:21] LABS: CALC OSMOLALITY 286 mosm/kg (275-300); CALCIUM 8.8 mg/dL (8.5-10.1); CHLORIDE - SERUM 98 mmol/L (98-107); GLUCOSE 269 mg/dL (74-106); POTASSIUM - SERUM 4.3 mmol/L (3.5-5.1); SODIUM 137 mmol/L (136-145); UREA NITROGEN 24 mg/dL (7-18); eGFR NON AFRICAN AMERICAN 83 mL/min (90-120)
[2019-01-22] MEDS ORDERED: LEVAQUIN750 MG PO (13:51)
[2019-01-22] MEDS ORDERED: OMNICEF300 MG PO (13:52)
[2019-01-22] MEDS ORDERED: SINGULAIR10 MG PO (13:53)
[2019-01-22] MEDS ORDERED: MUCINEX DM ER1 EAC1 PO (13:53)
[2019-01-22] MEDS ORDERED: PREDNISONE10 MG PO (13:55)
[2019-01-22] MEDS ORDERED: IPRAT-ALBUT 0.5-3 ML INH (14:09)
[2019-01-22] MEDS ORDERED: BREO ELLIPTA 21 EACH INH (14:09)
--- NOTE | 2019-01-22 15:35 | MORECARE ---
CASE MANAGEMENT DISCHARGE SUMMARY PATIENT: MEHDI RANDALL UNIT: [id number] ADM DATE: 01/18/19 AGE: 53 : 65 SEX: M ROOM/BED: D.2223 AUTHOR: ADELAIDA,DOC PHYSICIAN: REFERRING PHYSICIAN: EDY LOPEZ MD DATE OF SERVICE: 01/22/19 Discharge Plan Patient Name: MEHDI RANDALL Facility: [facility]:[place] : 1965 Planned Disposition: Home Anticipated Discharge Date: Discharge Date: Expected LOS: Initial Reviewer: [email or web address] Initial Review Date: 01/18/2019 Generated: 01/22/19 4:35 pm Comments DCP- Discharge Planning Updated by [id number]: Rehana Bowmantoro on 01/22/19 2:[address] Discharge orders received. He has his large portable oxygen tank in the room from [facility]. He is to call when he leaves to have his home oxygen set up. I have told the media coordinator to work on his discharge next and also told Ethan that he needed to meet [email or web address] for oxygen delivery. They will also deliver his nebulizer to the home. I informed the patient that they do have an crew personpersonal service workers after 5 that can deliver if needed. I called [facility] and spoke to Ann and she verifies that their crew person equipment driver will deliver the oxygen and nebulizer to the home when they call on discharge. CM will continue to follow and assist with discharge planning/needs. DCP- Discharge Planning Updated by [id number]: Rehana Fortune on 01/21/19 12:[address] I spoke with Dr. Bhatti about liter flow for the patient to go home on . He states to have RT walk on oxygen and see what it takes to keep sat >88. Patient required 7L NC for oxygen saturation to be 89% while ambulating. I informed Maral with [facility]. Maral states he will need a large tank for portability. She states to call the [place] office when he is discharged and they will deliver the portable and meet the patient at his house to set oxygen up. Maral states she will check with Ann about the preauth on his CPAP machine. Patient is aware that he can purchase replacement tubing from them, they cannot bill insurance for his original CPAP that he bought over the internet (Dr. Bhatti is aware). CM will continue to follow and assist with discharge planning/needs. DCP- Discharge Planning Updated by [id number]: Rehana Fortune on 01/20/19 12:[address] Walk test completed, he qualifies for home oxygen at this time. I called Ann at [facility] and clinical and order faxed. CM will continue to follow and assist with discharge planning/needs. DCP- Discharge Planning Updated by [id number]: Rehana Fortune on 01/19/19 11:[address] Met with patient and his fianc?e about finding a primary care doctor. I provided them with the [facility] number to have them call today. I also spoke with Dr. Bhatti and he states patient will need a nebulizer for home use. I faxed the order and spoke to Brittny. CM will continue to follow and assist with discharge planning/needs. DCP- Discharge Planning Updated by [email or web address]: Rehana Fortune on 01/19/19 8:[address] Spoke with Ann at [facility] and faxed order and sleep study report from Dr. Bhatti's office. She states she will need other notes from Dr. Bhatti's office in order to get a CPAP and will also need authorization from Medicaid. CM will continue to assist with discharge planning/needs. DCP- Discharge Planning Updated by [id number]: Rehana Fortune on 01/18/19 4:[address] Patient Name: MEHDI RANDALL Admission Status: ER Accout number: [id number] Admission Date: 01-18-2019 : 1965 Admission Diagnosis: Attending: EDY LOPEZ Current LOS: 1 Anticipated DC Date: Planned Disposition: Home Primary Insurance: MEDICAID [place] Discharge Planning Comments: CM met with patient to discuss discharge planning/needs, he is alone in the room. He states he lives with his fianc?e. States he is independent with all ADL's and AIDL's. I discussed availability of rehab, home health and additional DME. I informed him that I had an order to replace his CPAP equipment, I informed him that I had called [facility] and they did not have a record of his CPAP. Patient states he bought it on line for douglas. He states Dr. Bhatti should have a record of his sleep study. I called Dr. Bhatti's office and spoke to Etta. She will fax his sleep study from 2013. She states they have not seen him since 2016. He does not have a PCP. I gave the numbers to [facility], Physician referral line and [facility]. I will attempt to call [facility] when they are open in the morning. CM will continue to follow and assist with discharge planning/needs. Digital Field Service Technician: Rehana Fortune DCP- Discharge Planning Updated by [email or web address]: Rehana Fortune on 01/18/19 3:[address] CM went to room to discuss his CPAP and supplies and he is asleep. I have an order about having [facility] in [place] to replace his tubing and mask for his CPAP. I called and spoke to Ann and she states if he is their patient, she will have them deliver it to his room. She will call me back if he is not their patient. CM will meet with him tomorrow. DCPIA - Discharge Planning Initial Assessment Updated by [id number]: Rehana Fortune on 01/18/19 4:58 pm * Is the patient Alert and Oriented? Yes * How many steps to enter\exit or inside your home? 0/0 * PCP None * Pharmacy [place] * Preadmission Environment Home with Family * ADLs Independent * Equipment CPAP * List name and contact numbers for known caregivers / representatives who currently or will assist patient after discharge: Puja ratliff?e - [phone] * Verbal permission to speak to the caregivers and representatives has been obtained from the patient. Yes * Community resources currently utilized None * Additional services required to return to the preadmission environment? Yes * Can the patient safely return to the preadmission environment? Yes * Has this patient been hospitalized within the prior 30 days at any hospital? Yes Coverage Notice Reviewer: [id number] - Rehana Fortune Notice Issued Date-Time: 01/18/2019 16:55 Notice Type: Patient Choice Letter Notice Delivered To: Patient Relationship to Patient: Bioengineer Name: Delivery Method: HAND - Hand Delivered Naomi Days: Prior Verbal Notification: Recipient Understood Notice: Yes Recipient Signature: Yes Med Rec Note Co-signed by Attending: Coverage Notice Comment: YAQUELIN for 1. [facility] 2. [facility] Last DP export: 01/21/19 12:39 pm Patient Name: MEHDI RANDALL Page [id number] at 1535 All edits/amendments must be made on the electronic document DICTATION DATE: 01/22/191534 ACCOUNT REVIEW SPECIALIST: HARIS 01/22/191534 RPT#: [id number] DC DATE: STATUS: ADM IN [facility] [address] [place] [address] END OF REPORT
--- NOTE | 2019-01-26 09:34 | MORECARE ---
CASE MANAGEMENT DISCHARGE SUMMARY PATIENT: MEHDI RANDALL UNIT: [id number] ADM DATE: 01/18/19 AGE: 53 : 65 SEX: M ROOM/BED: D.2223 AUTHOR: ADELAIDA,DOC PHYSICIAN: REFERRING PHYSICIAN: EDY LOPEZ MD DATE OF SERVICE: 01/26/19 Discharge Plan Patient Name: MEHDI RANDALL Facility: [facility]:[place] : 1965 Planned Disposition: Home Anticipated Discharge Date: Discharge Date: 01/22/2019 Expected LOS: 0 Initial Reviewer: [email or web address] Initial Review Date: 01/18/2019 Generated: 01/26/19 10:34 am Comments DCP- Discharge Planning Updated by [email or web address]: Rehana Bowmantoro on 01/22/19 2:[address] Discharge orders received. He has his large portable oxygen tank in the room from [facility]. He is to call when he leaves to have his home oxygen set up. I have told the flower arranger to work on his discharge next and also told Ethan that he needed to meet [employer] for oxygen delivery. They will also deliver his nebulizer to the home. I informed the patient that they do have an cotton buyercall out clerk after 5 that can deliver if needed. I called [facility] and spoke to Ann and she verifies that their cotton buyer semi truck driver will deliver the oxygen and nebulizer to the home when they call on discharge. CM will continue to follow and assist with discharge planning/needs. DCP- Discharge Planning Updated by [email or web address]: Rehana Fortune on 01/21/19 12:[address] I spoke with Dr. Bhatti about liter flow for the patient to go home on . He states to have RT walk on oxygen and see what it takes to keep sat >88. Patient required 7L NC for oxygen saturation to be 89% while ambulating. I informed Maral with [facility]. Maral states he will need a large tank for portability. She states to call the [place] office when he is discharged and they will deliver the portable and meet the patient at his house to set oxygen up. Maral states she will check with Ann about the preauth on his CPAP machine. Patient is aware that he can purchase replacement tubing from them, they cannot bill insurance for his original CPAP that he bought over the internet (Dr. Bhatti is aware). CM will continue to follow and assist with discharge planning/needs. DCP- Discharge Planning Updated by [id number]: Rehana Fortune on 01/20/19 12:[address] Walk test completed, he qualifies for home oxygen at this time. I called Ann at [facility] and clinical and order faxed. CM will continue to follow and assist with discharge planning/needs. DCP- Discharge Planning Updated by [email or web address]: Rehana Bowmantoro on 01/19/19 11:[address] Met with patient and his fianc?e about finding a primary care doctor. I provided them with the [facility] number to have them call today. I also spoke with Dr. Bhatti and he states patient will need a nebulizer for home use. I faxed the order and spoke to Brittny. CM will continue to follow and assist with discharge planning/needs. DCP- Discharge Planning Updated by [id number]: Rehana Fortune on 01/19/19 8:[address] Spoke with Ann at [facility] and faxed order and sleep study report from Dr. Bhatti's office. She states she will need other notes from Dr. Bhatti's office in order to get a CPAP and will also need authorization from Medicaid. CM will continue to assist with discharge planning/needs. DCP- Discharge Planning Updated by [email or web address]: Rehana Fortune on 01/18/19 4:[address] Patient Name: MEHDI RANDALL Admission Status: ER Accout number: [id number] Admission Date: 01-18-2019 : 1965 Admission Diagnosis: Attending: EDY LOPEZ Current LOS: 1 Anticipated DC Date: Planned Disposition: Home Primary Insurance: MEDICAID [place] Discharge Planning Comments: CM met with patient to discuss discharge planning/needs, he is alone in the room. He states he lives with his fianc?e. States he is independent with all ADL's and AIDL's. I discussed availability of rehab, home health and additional DME. I informed him that I had an order to replace his CPAP equipment, I informed him that I had called [facility] and they did not have a record of his CPAP. Patient states he bought it on line for douglas. He states Dr. Bhatti should have a record of his sleep study. I called Dr. Bhatti's office and spoke to Etta. She will fax his sleep study from 2013. She states they have not seen him since 2017. He does not have a PCP. I gave the numbers to [facility] Phys[facility] referral [facility] and [facility]. I will attempt to call [facility] when they are open in the morning. CM will continue to follow and assist with discharge planning/needs. Retail Marketing Manager: Rehana Fortune DCP- Discharge Planning Updated by [id number]: Rehana Fortune on 01/18/19 3:[address] CM went to room to discuss his CPAP and supplies and he is asleep. I have an order about having [facility] in [place] to replace his tubing and mask for his CPAP. I called and spoke to Ann and she states if he is their patient, she will have them deliver it to his room. She will call me back if he is not their patient. CM will meet with him tomorrow. DCPIA - Discharge Planning Initial Assessment Updated by [id number]: Rehana Fortune on 01/18/19 4:58 pm * Is the patient Alert and Oriented? Yes * How many steps to enter\exit or inside your home? 0/0 * PCP None * Pharmacy [facility] * Preadmission Environment Home with Family * ADLs Independent * Equipment CPAP * List name and contact numbers for known caregivers / representatives who currently or will assist patient after discharge: Puja ratliff?e - [phone] * Verbal permission to speak to the caregivers and representatives has been obtained from the patient. Yes * Community resources currently utilized None * Additional services required to return to the preadmission environment? Yes * Can the patient safely return to the preadmission environment? Yes * Has this patient been hospitalized within the prior 30 days at any hospital? Yes Coverage Notice Reviewer: [id number] - Rehana Fortune Notice Issued Date-Time: 01/18/2019 16:55 Notice Type: Patient Choice Letter Notice Delivered To: Patient Relationship to Patient: Putty And Caulking Supervisor Name: Delivery Method: HAND - Hand Delivered Naomi Days: Prior Verbal Notification: Recipient Understood Notice: Yes Recipient Signature: Yes Med Rec Note Co-signed by Attending: Coverage Notice Comment: YAQUELIN for 1. [facility] 2. [facility] Last DP export: 01/22/19 2:35 pm Patient Name: MEHDI RANDALL Page [phone] at 0934 All edits/amendments must be made on the electronic document DICTATION DATE: 01/26/19932 FAMILY AND MARRIAGE COUNSELLOR: HARIS 01/26/19932 RPT#: [id number] DC DATE:01/22/19 STATUS: DIS IN [facility] [address] [place] [address] END OF REPORT
== END 2019-01-22 16:00 | disposition home or self-care (01) | DRG 193 ==
LOC: D.ER 02:58 → D.MS 04:14
PROVIDERS: Family Medicine; Internal Medicine Nephrology; ADMIT Family Medicine; ATTEND Family Medicine
DX: J13 Pneumonia due to Streptococcus pneumoniae (principal); J96.21 Acute and chronic respiratory failure with hypoxia; J44.1 Chronic obstructive pulmonary disease with (acute) exacerbation; F17.213 Nicotine dependence, cigarettes, with withdrawal; J18.9 Pneumonia, unspecified organism; K21.9 Gastro-esophageal reflux disease without esophagitis; E11.9 Type 2 diabetes mellitus without complications; I10 Essential (primary) hypertension; E78.5 Hyperlipidemia, unspecified; Z91.19 Patient's noncompliance with other medical treatment and regimen

== ENCOUNTER 2019-02-06 12:50 | Emergency (ER) | payer MEDICAID ==
[~2019-02-06] VITALS: Ht 180.3 cm; Wt 125.0 kg
[~2019-02-06 12:50] MED LIST changes: +BREO ELLIPTA 21 EACH INH; +IPRAT-ALBUT 0.5-3 ML INH; +LEVAQUIN750 MG PO; +MUCINEX DM ER1 EAC1 PO; +PREDNISONE10 MG PO
[2019-02-06 12:57] VITALS: Ht 180.3 cm; Wt 125.0 kg
[2019-02-06 13:28] LABS: BASOPHILS 0.3 % (0-2); HEMATOCRIT 53.7 % (42.0-54.0); HEMOGLOBIN 18.1 g/dL (13.5-17.5); IMMATURE GRANULOCYTES 0.7 % (0-5); MCH 30.9 pg (26.0-34.0); MCHC 33.7 g/dL (31.0-37.0); MCV 91.6 fL (80.0-100.0); MEAN PLATELET VOLUME 10.5 fL (7.4-10.4); MONOCYTES 6.6 % (2-11); NEUTROPHILS 73.4 % (40-80); PLATELET COUNT 160 10x3/uL (130-400); RBC 5.86 10x6/uL (4.20-6.10); RDW 14.1 % (11.5-14.5); WBC 8.8 10x3/uL (4.8-10.8)
[2019-02-06 13:56] LABS: ALBUMIN 3.1 g/dL (3.4-5.0); ALKALINE PHOSPHATASE 48 U/L (46-116); ALT (SGPT) 28 U/L (10-68); BILIRUBIN - TOTAL 0.53 mg/dL (0.2-1.3); C-REACTIVE PROTEIN 0.4 mg/dL (0.0-0.9); CALC OSMOLALITY 286 mosm/kg (275-300); CALCIUM 8.5 mg/dL (8.5-10.1); CARBON DIOXIDE 32.7 mmol/L (21.0-32.0); CHLORIDE - SERUM 100 mmol/L (98-107); CREATININE - SERUM 0.9 mg/dL (0.6-1.3); GLUCOSE 298 mg/dL (74-106); POTASSIUM - SERUM 4.4 mmol/L (3.5-5.1); PROTEIN - SERUM 7.1 g/dL (6.4-8.2); SODIUM 138 mmol/L (136-145); UREA NITROGEN 12 mg/dL (7-18); eGFR NON AFRICAN AMERICAN > 90 mL/min (90-120)
[2019-02-06] MEDS ORDERED: HYDROCODON-ACE1 EAC2 PO (14:01)
[2019-02-06 14:24] VITALS: BP 111/82
== END 2019-02-06 14:25 | disposition home or self-care (01) ==
LOC: D.ER 12:50
PROVIDERS: Emergency Medicine
DX: R51 Headache (principal)

== ENCOUNTER → 2019-03-26 14:43 | Outpatient (CLI) | payer MEDICAID ==
[2019-02-06 12:57] VITALS: BMI 38.4
[~2019-03-26 14:43] MED LIST changes: +HYDROCODON-ACE1 EAC2 PO
== END | disposition home or self-care (01) ==
LOC: D.RT 03-23 08:00
PROVIDERS: ATTEND Internal Medicine Pulmonary Disease
DX: J44.9 Chronic obstructive pulmonary disease, unspecified (principal)

== ENCOUNTER 2019-03-26 15:29 | Inpatient (IN) | payer MEDICAID ==
[~2019-03-26] VITALS: Ht 180.3 cm; Wt 127.0 kg
[2019-03-26 16:02] LABS: BASOPHILS 0.4 % (0-2); EOSINOPHILS 4.3 % (0-7); HEMATOCRIT 57.1 % (42.0-54.0); HEMOGLOBIN 20.1 g/dL (13.5-17.5); IMMATURE GRANULOCYTES 0.8 % (0-5); LYMPHOCYTES 21.2 % (15-50); MCHC 35.2 g/dL (31.0-37.0); MCV 90.9 fL (80.0-100.0); MONOCYTES 9.4 % (2-11); NEUTROPHILS 63.9 % (40-80); PLATELET COUNT 170 10x3/uL (130-400); RBC 6.28 10x6/uL (4.20-6.10); RDW 15.1 % (11.5-14.5); WBC 8.5 10x3/uL (4.8-10.8)
[2019-03-26 16:17] LABS: APTT 40.9 SECONDS (22.8-39.4); INR 1.05 (0.85-1.17); PROTIME 13.2 SECONDS (11.6-15.0)
[2019-03-26 16:26] LABS: ALT (SGPT) 18 U/L (10-68)
[2019-03-26 16:32] LABS: ALBUMIN 3.3 g/dL (3.4-5.0); ALKALINE PHOSPHATASE 59 U/L (46-116); CALCIUM 8.7 mg/dL (8.5-10.1); CARBON DIOXIDE 29.4 mmol/L (21.0-32.0); CHLORIDE - SERUM 101 mmol/L (98-107); CKMB 3.7 U/L (0.0-3.6); CREATINE KINASE 104 UL (21-232); CREATININE - SERUM 0.9 mg/dL (0.6-1.3); POTASSIUM - SERUM 4.3 mmol/L (3.5-5.1); PROTEIN - SERUM 7.3 g/dL (6.4-8.2); SODIUM 137 mmol/L (136-145); UREA NITROGEN 7 mg/dL (7-18); eGFR NON AFRICAN AMERICAN > 90 mL/min (90-120)
[2019-03-26 16:36] LABS: CALC OSMOLALITY 274 mosm/kg (275-300); GLUCOSE 147 mg/dL (74-106); PRO BNP 1 pg/mL (0-125); TROPONIN-I < 0.017 ng/mL (0.000-0.060)
[2019-03-26 18:17] VITALS: BP 119/60
[2019-03-27 02:17] VITALS: BP 140/78; BMI 39.1
[2019-03-27 07:40] LABS: BASOPHILS 0 % (0-2); EOSINOPHILS 0 % (0-7); HEMOGLOBIN 18.9 g/dL (13.5-17.5); IMMATURE GRANULOCYTES 0.5 % (0-5); LYMPHOCYTES 5.8 % (15-50); MCH 31.7 pg (26.0-34.0); MCV 90.6 fL (80.0-100.0); MEAN PLATELET VOLUME 11.2 fL (7.4-10.4); MONOCYTES 1.6 % (2-11); NEUTROPHILS 92.1 % (40-80); PLATELET COUNT 195 10x3/uL (130-400); RBC 5.96 10x6/uL (4.20-6.10); RDW 15.1 % (11.5-14.5)
[2019-03-27 07:49] LABS: ANION GAP 12.6 mmol/L (8-16); CALCIUM 8.7 mg/dL (8.5-10.1); CARBON DIOXIDE 26.8 mmol/L (21.0-32.0); POTASSIUM - SERUM 4.4 mmol/L (3.5-5.1)
[2019-03-27 07:50] LABS: CREATININE - SERUM 1.2 mg/dL (0.6-1.3); WBC 12.2 10x3/uL (4.8-10.8)
[2019-03-27 09:34] VITALS: BMI 39.0
--- NOTE | 2019-03-27 09:39 | NUR ---
PATIENT SITTING UP IN BED REQUESTED A SECOND BREAKFAST TRAY DUE TO " THERE WAS A BUG THAT CRAWLED OUT OF MY PLATE" CALLED [employer] AND REQUESTED SECOND TRAY. PATIENT STATED THIS IS SECOND TIME IN VISIT THAT THAT HE HAS SEEN BUGS IN OUR HOSPITAL AND ASKED TO SPEAK TO DIRECTOR TITLE OR HELMET HAT BRIM CUTTER ABOUT PROBLEM OR AT LEAST LET THEM KNOW. ADVISED HIM I WOULD. PT REQUESTED TO SEE DR TAVAREZ, NO OTHER NEEDS VOICED CONTINUE WITH PLAN OF CARE
[2019-03-27 10:25] VITALS: BP 135/85
--- NOTE | 2019-03-27 14:21 | NUR ---
PT LYING IN BED SPOUSE AT BEDSIDE, VERY IRRITATED THAT DR'S HAVE STILL NOT BEEN IN ADVISED WITH THE WEEKENDS DR'S MAKE ROUNDS AT VARIOUS TIMES. NO OTHER NEEDS VOICED, CONTINUE WITH PLAN OF CARE
[2019-03-27 16:15] VITALS: Ht 180.3 cm; Wt 127.0 kg
--- NOTE | 2019-03-27 17:27 | NUR ---
PT LEFT AMA. PAGED BOTH DR BARNETT AND DR TAVAREZ. DR BARNETT JUST LEFT PT ROOM ABOUT 45MINS AGO
--- NOTE | 2019-03-27 18:22 | NUR ---
CALLED PATIENT TWICE, NO ANSWER SPOKE WITH DR NEGRETE AND ADVISED OF PT ROOM EMPTY AND PATIENT NOT ANSWERING, ALSO SPOKE TO AUTOMOTIVE SERVICES MANAGER IN REGARDS TO PT NOT AROUND,
== END 2019-03-27 18:29 | disposition left against medical advice (07) | DRG 189 ==
LOC: D.ER 15:29 → D.MS 19:32
PROVIDERS: Family Medicine; ADMIT Family Medicine; ATTEND Family Medicine
DX: J96.11 Chronic respiratory failure with hypoxia (principal); J44.9 Chronic obstructive pulmonary disease, unspecified; D75.1 Secondary polycythemia

== ENCOUNTER 2019-06-30 17:42 | Inpatient (IN) | payer MEDICAID ==
[~2019-06-30] VITALS: Ht 180.3 cm; Wt 145.1 kg
[2019-06-30] MEDS ORDERED: SPIRIVA18 MCG INH (18:06)
[2019-06-30] MEDS ORDERED: GLUCOPHAGE500 MG PO (18:07)
[2019-06-30] MEDS ORDERED: SYMBICORT 80-10.2 GM INH (18:07)
--- NOTE | 2019-06-30 18:42 | NUR ---
PATIENT RECIEVED DIRECT ADMIT FROM [facility] FOR [facility]CREASED SHORTNESS OF BREATH OVER THE LAST WEEK. PATIENT IS ALERT AND ORIENTED.
[2019-06-30 18:47] VITALS: BP 152/78; BMI 44.7
[2019-06-30 20:00] VITALS: BP 132/79
--- NOTE | 2019-06-30 20:00 | NUR ---
ALERT RESTING IN BED, RESP LABORED O2 IN USE AT 10L HF N/C, APPEARS ANXIOUS ENCOURAGED TO SLOW BREATHING, CALMS DOWN, SEE SHIFT ASSESSMENT, CALL LIGHT IN REACH, NO NEEDS AT THIS TIME
[2019-06-30 20:22] LABS: BASOPHILS 0.1 % (0-2); EOSINOPHILS 1.7 % (0-7); HEMATOCRIT 57.1 % (42.0-54.0); HEMOGLOBIN 17.7 g/dL (13.5-17.5); IMMATURE GRANULOCYTES 0.5 % (0-5); LYMPHOCYTES 5.6 % (15-50); MCH 30.2 pg (26.0-34.0); MCV 97.4 fL (80.0-100.0); MEAN PLATELET VOLUME 10.6 fL (7.4-10.4); MONOCYTES 4.2 % (2-11); NEUTROPHILS 87.9 % (40-80); PLATELET COUNT 161 10x3/uL (130-400); RBC 5.86 10x6/uL (4.20-6.10); RDW 15.4 % (11.5-14.5); WBC 9.6 10x3/uL (4.8-10.8)
[2019-06-30 20:31] LABS: INR 1.14 (0.85-1.17); PROTIME 14.1 SECONDS (11.6-15.0)
[2019-06-30 20:32] LABS: APTT 40.1 SECONDS (22.8-39.4)
[2019-06-30 20:37] LABS: ALBUMIN 3.1 g/dL (3.4-5.0); ALKALINE PHOSPHATASE 61 U/L (46-116); ALT (SGPT) 22 U/L (10-68); CALC OSMOLALITY 284 mosm/kg (275-300); CALCIUM 8.3 mg/dL (8.5-10.1); CARBON DIOXIDE 37.2 mmol/L (21.0-32.0); CHLORIDE - SERUM 99 mmol/L (98-107); CREATININE - SERUM 0.7 mg/dL (0.6-1.3); GLUCOSE 211 mg/dL (74-106); POTASSIUM - SERUM 4.7 mmol/L (3.5-5.1); PROTEIN - SERUM 6.9 g/dL (6.4-8.2); SODIUM 139 mmol/L (136-145); UREA NITROGEN 14 mg/dL (7-18); eGFR NON AFRICAN AMERICAN > 90 mL/min (90-120)
[2019-07-01 04:00] VITALS: BP 154/79
[2019-07-01 04:48] LABS: BASOPHILS 0.1 % (0-2); EOSINOPHILS 0.1 % (0-7); HEMATOCRIT 59.8 % (42.0-54.0); HEMOGLOBIN 18.3 g/dL (13.5-17.5); IMMATURE GRANULOCYTES 0.5 % (0-5); LYMPHOCYTES 4.5 % (15-50); MCHC 30.6 g/dL (31.0-37.0); MEAN PLATELET VOLUME 11.3 fL (7.4-10.4); MONOCYTES 1.6 % (2-11); NEUTROPHILS 93.2 % (40-80); PLATELET COUNT 177 10x3/uL (130-400); RDW 15.1 % (11.5-14.5); WBC 9.6 10x3/uL (4.8-10.8)
[2019-07-01 05:37] LABS: CALC OSMOLALITY 279 mosm/kg (275-300); CALCIUM 8.5 mg/dL (8.5-10.1); CARBON DIOXIDE 34.2 mmol/L (21.0-32.0); CHLORIDE - SERUM 99 mmol/L (98-107); CREATININE - SERUM 0.8 mg/dL (0.6-1.3); GLUCOSE 230 mg/dL (74-106); MAGNESIUM - SERUM 1.7 mg/dL (1.8-2.4); PHOSPHOROUS 2.9 mg/dL (2.5-4.9); POTASSIUM - SERUM 5.2 mmol/L (3.5-5.1); PRO BNP 249 pg/mL (0-125); SODIUM 136 mmol/L (136-145); UREA NITROGEN 15 mg/dL (7-18); eGFR NON AFRICAN AMERICAN > 90 mL/min (90-120)
--- NOTE | 2019-07-01 08:21 | NUR ---
PATIENT ALERT/ORIENT. CALL LIGHT WITHIN REACH. VOICES NO NEEDS AT THIS TIME. URINE COLLECTED PER ORDER AND SENT TO LAB
[2019-07-01 08:49] LABS: APPEARANCE CLEAR (CLEAR); COLOR YELLOW (YELLOW)
[2019-07-01 08:50] LABS: BILIRUBIN NEGATIVE (NEGATIVE); GLUCOSE 1000 mg/dL (NEGATIVE); KETONE SMALL mg/dL (NEGATIVE); NITRITE NEGATIVE (NEGATIVE); PROTEIN 1+ mg/dL (NEGATIVE); SPECIFIC GRAVITY 1.015 (1.005-1.020)
[2019-07-01 08:51] LABS: BACTERIA FEW /hpf (NEGATIVE); EPITHELIAL CELLS RARE /hpf (0-5); RED CELLS - URINE 0-5 /hpf (0-5); WHITE CELLS - URINE NSEEN /hpf (NEGATIVE)
[2019-07-01 09:21] VITALS: BP 121/69
--- NOTE | 2019-07-01 10:26 | NUR ---
BUBBLE STUDY DONE. ECHOCARDIGRAM DONE. XR OF RIGHT CHEST DONE. PATIENT TAKEN DOWN FOR CT CHEST WITHOUT CONTRAST. DR IVAN MADE NOTE ON THIS PATIENT
[2019-07-01 12:16] VITALS: BP 127/84
--- NOTE | 2019-07-01 12:50 | NUR ---
ELECTROLITE PROTACHOL DONE. LAB PUT IN FOR AM 07-02-19
[2019-07-01 13:50] VITALS: BMI 44.6
[2019-07-01 14:00] LABS: CALCIUM 8.4 mg/dL (8.5-10.1); CARBON DIOXIDE 36.7 mmol/L (21.0-32.0); CHLORIDE - SERUM 96 mmol/L (98-107); POTASSIUM - SERUM 4.9 mmol/L (3.5-5.1); SODIUM 136 mmol/L (136-145); eGFR NON AFRICAN AMERICAN 83 mL/min (90-120)
[2019-07-01 14:01] LABS: CALC OSMOLALITY 286 mosm/kg (275-300); GLUCOSE 323 mg/dL (74-106); UREA NITROGEN 20 mg/dL (7-18)
--- NOTE | 2019-07-01 15:02 | NUR ---
I have reviewed this patient and I concur with the Shift Assessment completed by the Licensed Practical Nurse today this shift.
[2019-07-01 17:09] VITALS: BP 118/79
[2019-07-01 21:36] VITALS: BP 120/75
--- NOTE | 2019-07-02 01:29 | NUR ---
I have reviewed this patient and I concur with the Shift Assessment completed by the Licensed Practical Nurse today this shift.
[2019-07-02 05:06] LABS: ANION GAP 9.1 mmol/L (8-16); CALCIUM 8.5 mg/dL (8.5-10.1); CARBON DIOXIDE 35.6 mmol/L (21.0-32.0); CREATININE - SERUM 1.1 mg/dL (0.6-1.3); POTASSIUM - SERUM 4.7 mmol/L (3.5-5.1)
[2019-07-02 05:08] LABS: PHOSPHOROUS 3.8 mg/dL (2.5-4.9)
[2019-07-02 05:10] LABS: BASOPHILS 0 % (0-2); EOSINOPHILS 0 % (0-7); HEMATOCRIT 55.4 % (42.0-54.0); HEMOGLOBIN 17.2 g/dL (13.5-17.5); IMMATURE GRANULOCYTES 0.6 % (0-5); LYMPHOCYTES 4.4 % (15-50); MCH 29.8 pg (26.0-34.0); MEAN PLATELET VOLUME 11.2 fL (7.4-10.4); MONOCYTES 5.7 % (2-11); NEUTROPHILS 89.3 % (40-80); PLATELET COUNT 196 10x3/uL (130-400); RBC 5.77 10x6/uL (4.20-6.10); RDW 15.1 % (11.5-14.5); WBC 11.2 10x3/uL (4.8-10.8)
[2019-07-02 05:16] VITALS: BP 107/54
[2019-07-02 08:27] VITALS: BP 120/70
[2019-07-02 12:47] VITALS: BP 112/57
--- NOTE | 2019-07-02 13:49 | MORECARE ---
CASE MANAGEMENT DISCHARGE SUMMARY PATIENT: MEHDI RANDALL UNIT: [id number] ADM DATE: 06/30/19 AGE: 54 : 65 SEX: M ROOM/BED: D.2206 AUTHOR: LINDSAY SON PHYSICIAN: REFERRING PHYSICIAN: VAZQUEZ IVAN MD DATE OF SERVICE: 07/02/19 Discharge Plan Patient Name: MEHDI RANDALL Facility: [facility]:[place] : 1965 Planned Disposition: Home or Self Care Anticipated Discharge Date: Discharge Date: Expected LOS: Initial Reviewer: [email or web address] Initial Review Date: 06/30/2019 Generated: 07/02/19 2:49 pm Patient Name: MEHDI RANDALL Page [phone] at 1349 All edits/amendments must be made on the electronic document DICTATION DATE: 07/02/19 1348 INSURANCE CODER: HARIS 07/02/19 1348 RPT#: [id number] DC DATE: STATUS: ADM IN [facility] [address] [place] [address] END OF REPORT
--- NOTE | 2019-07-02 13:59 | MORECARE ---
CASE MANAGEMENT DISCHARGE SUMMARY PATIENT: MEHDI RANDALL UNIT: [id number] ADM DATE: 06/30/19 AGE: 54 : 65 SEX: M ROOM/BED: D.2206 AUTHOR: LINDSAY SON PHYSICIAN: REFERRING PHYSICIAN: VAZQUEZ IVAN MD DATE OF SERVICE: 07/02/19 Discharge Plan Patient Name: MEHDI RANDALL Facility: [facility]:[place] : 1965 Planned Disposition: Home or Self Care Anticipated Discharge Date: Discharge Date: Expected LOS: Initial Reviewer: [email or web address] Initial Review Date: 06/30/2019 Generated: 07/02/19 2:58 pm DCPIA - Discharge Planning Initial Assessment Updated by [id number]: Mallorie Lomeli on 07/02/19 1:50 pm * Is the patient Alert and Oriented? Yes * How many steps to enter\exit or inside your home? * PCP SK[facility]AS * Pharmacy [facility] * Preadmission Environment Home with Family * ADLs Independent * Equipment CPAP Nebulizer Other Oxygen * Other Equipment HOME O2 CONCENTRATOR * List name and contact numbers for known caregivers / representatives who currently or will assist patient after discharge: IBRAHIMA PAGAN [phone] * Verbal permission to speak to the caregivers and representatives has been obtained from the patient. N/A * Community resources currently utilized None * Additional services required to return to the preadmission environment? Yes * Can the patient safely return to the preadmission environment? Yes * Has this patient been hospitalized within the prior 30 days at any hospital? No Last DP export: 07/02/19 12:49 Patient Name: MEHDI RANDALL Page [phone] at 1359 All edits/amendments must be made on the electronic document DICTATION DATE: 07/02/191357 ADMIN SECRETARY: HARIS 07/02/191357 RPT#: [id number] DC DATE: STATUS: ADM IN [facility] [address] [place] [address] END OF REPORT
--- NOTE | 2019-07-02 14:17 | MORECARE ---
CASE MANAGEMENT DISCHARGE SUMMARY PATIENT: MEHDI RANDALL UNIT: [id number] ADM DATE: 06/30/19 AGE: 54 : 65 SEX: M ROOM/BED: D.2206 AUTHOR: ADELAIDA,DOC PHYSICIAN: REFERRING PHYSICIAN: VAZQUEZ IVAN MD DATE OF SERVICE: 07/02/19 Discharge Plan Patient Name: MEHDI RANDALL Facility: [facility]:[place] : 1965 Planned Disposition: Home or Self Care Anticipated Discharge Date: Discharge Date: Expected LOS: Initial Reviewer: [email or web address] Initial Review Date: 06/30/2019 Generated: 07/02/19 3:16 pm Comments DCP- Discharge Planning Updated by [email or web address]: Mallorie Lomeli on 07/02/19 1:[address] Patient Name: MEHDI RANDALL Admission Status: Elective Accout number: [id number] Admission Date: 06-30-2019 : 1965 Admission Diagnosis: Attending: VAZQUEZ IVAN Current LOS: 2 Anticipated DC Date: Planned Disposition: Home or Self Care Primary Insurance: MEDICAID [place] Discharge Planning Comments: CM met with patient to complete initial dc planning assessment. CM educated patient on the CM role and verbal consent given by patient to complete assessment. Patient lives at home with his where he is independent with his care. At discharge patient plans to return home and feels this is a safe discharge. CM discussed availability of home health, rehab services, and medical equipment. He has a CPAP, home o2, portable O2, concentrator and nebulizer at home. All DME came from [facility] and right of choice signed and placed in chart. He does need a new mask for his CPAP and I have called Bernie at [facility] to try to get it, she stated that [employer] will not pay for supplies and the cost will be 140.00 dollars and 15.00 for the tubing. Patient denied known discharge needs at this time. CM will continue to follow and will assist as needed with dc plans/needs. Jitterbug Operator: Mallorie Lomeli DCPIA - Discharge Planning Initial Assessment Updated by [email or web address]: Mallorie Lomeli on 07/02/19 1:50 pm * Is the patient Alert and Oriented? Yes * How many steps to enter\exit or inside your home? * PCP SKETAS * Pharmacy [facility] * Preadmission Environment Home with Family * ADLs Independent * Equipment CPAP Nebulizer Other Oxygen * Other Equipment HOME O2 CONCENTRATOR * List name and contact numbers for known caregivers / representatives who currently or will assist patient after discharge: IBRAHIMA FELTONARNOLD [phone] * Verbal permission to speak to the caregivers and representatives has been obtained from the patient. N/A * Community resources currently utilized None * Additional services required to return to the preadmission environment? Yes * Can the patient safely return to the preadmission environment? Yes * Has this patient been hospitalized within the prior 30 days at any hospital? No Coverage Notice Reviewer: [id number] Elena Lomeli Notice Issued Date-Time: 07/02/2019 9:00 Notice Type: Patient Choice Letter Notice Delivered To: Patient Relationship to Patient: Line Maintainer Name: Delivery Method: HAND - Hand Delivered Naomi Days: Prior Verbal Notification: Recipient Understood Notice: Yes Recipient Signature: Yes Med Rec Note Co-signed by Attending: Coverage Notice Comment: Last DP export: 07/02/19 12:59 Patient Name: MEHDI RANDALL Page [phone] at 1417 All edits/amendments must be made on the electronic document DICTATION DATE: 07/02/191415 BREAKFAST SUPERVISOR: HARIS 07/02/191415 RPT#: [id number] DC DATE: STATUS: ADM IN [facility] [address] [place] [address] END OF REPORT
[2019-07-02 16:53] VITALS: BP 116/62
[2019-07-02 21:16] VITALS: BP 123/70
[2019-07-03 01:13] VITALS: BP 134/71
--- NOTE | 2019-07-03 02:51 | NUR ---
I have reviewed this patient and I concur with the Shift Assessment completed by the Licensed Practical Nurse today this shift.
[2019-07-03 04:37] VITALS: BP 154/60
[2019-07-03 06:34] LABS: CALC OSMOLALITY 290 mosm/kg (275-300); CALCIUM 8.8 mg/dL (8.5-10.1); CARBON DIOXIDE 37.4 mmol/L (21.0-32.0); CHLORIDE - SERUM 98 mmol/L (98-107); GLUCOSE 308 mg/dL (74-106); MAGNESIUM - SERUM 2.2 mg/dL (1.8-2.4); PHOSPHOROUS 4.5 mg/dL (2.5-4.9); POTASSIUM - SERUM 4.9 mmol/L (3.5-5.1); SODIUM 137 mmol/L (136-145); UREA NITROGEN 26 mg/dL (7-18); eGFR NON AFRICAN AMERICAN 83 mL/min (90-120)
[2019-07-03 06:39] LABS: BASOPHILS 0 % (0-2); EOSINOPHILS 0 % (0-7); HEMATOCRIT 57.4 % (42.0-54.0); HEMOGLOBIN 17.8 g/dL (13.5-17.5); IMMATURE GRANULOCYTES 0.5 % (0-5); LYMPHOCYTES 3.2 % (15-50); MCH 29.8 pg (26.0-34.0); MCV 96.1 fL (80.0-100.0); MEAN PLATELET VOLUME 11.5 fL (7.4-10.4); MONOCYTES 5.7 % (2-11); NEUTROPHILS 90.6 % (40-80); PLATELET COUNT 182 10x3/uL (130-400); RBC 5.97 10x6/uL (4.20-6.10); RDW 15.1 % (11.5-14.5); WBC 10.1 10x3/uL (4.8-10.8)
--- NOTE | 2019-07-03 07:00 | NUR ---
ALERT AND ORIENTED, SITTING UP IN BED. NO C/O PAIN. NO S/S OF ACUTE DISTRESS NOTED. ON 6L O2, HIGH FLOW. IV TO RIGHT HAND, SL. SITE PATENT WITHOUT REDNESS OR SWELLING. FSBS Q4 HOURS. DENIES ANY NEEDS AT THIS TIME. CALL LIGHT IN REACH. WILL CONTINUE TO MONITOR.
[2019-07-03 10:56] VITALS: Ht 180.3 cm; Wt 145.1 kg
[2019-07-03 11:13] LABS: % SATURATION 8 % (15-55); IRON 32 ug/dl (35-150); TOTAL IRON BIND CAPACITY 370 ug/dl (260-445); UNSAT IRON BIND CAPACITY 338 ug/dl (150-375)
[2019-07-03 12:04] VITALS: BP 132/72
[2019-07-03 16:08] VITALS: BP 137/71
--- NOTE | 2019-07-03 18:32 | NUR ---
ALERT AND ORIENTED, RESTING IN BED. NO C/O PAIN. NO S/S OF ACUTE DISTRESS NOTED. DENIES ANY NEEDS AT THIS TIME. CALL LIGHT IN REACH. WILL CONTINUE TO MONITOR.
--- NOTE | 2019-07-03 20:01 | NUR ---
I have reviewed this patient and I concur with the Shift Assessment completed by the Licensed Practical Nurse today this shift.
--- NOTE | 2019-07-03 20:30 | NUR ---
SITTING UP IN BED.WATHCING TV WITHOUT COMPLAINTS VOICED. RESP EVEN AND UNLABORED. O2 @ 6L PER HIGH FLOW ON. NO DISTRESS NOTED. AT BEDSIDE. CL IN REACH
[2019-07-03 21:18] VITALS: BP 140/77
[2019-07-04 00:30] VITALS: BP 139/74
--- NOTE | 2019-07-04 03:26 | NUR ---
I have reviewed this patient and I concur with the Shift Assessment completed by the Licensed Practical Nurse today this shift.
[2019-07-04 04:30] VITALS: BP 153/78
[2019-07-04 06:08] LABS: BASOPHILS 0 % (0-2); EOSINOPHILS 0 % (0-7); HEMATOCRIT 55.7 % (42.0-54.0); HEMOGLOBIN 17.3 g/dL (13.5-17.5); IMMATURE GRANULOCYTES 0.4 % (0-5); LYMPHOCYTES 3.8 % (15-50); MCH 29.7 pg (26.0-34.0); MCHC 31.1 g/dL (31.0-37.0); MCV 95.5 fL (80.0-100.0); MEAN PLATELET VOLUME 10.8 fL (7.4-10.4); MONOCYTES 8.3 % (2-11); NEUTROPHILS 87.5 % (40-80); PLATELET COUNT 154 10x3/uL (130-400); RBC 5.83 10x6/uL (4.20-6.10); RDW 14.9 % (11.5-14.5); WBC 7.8 10x3/uL (4.8-10.8)
[2019-07-04 06:42] LABS: CALC OSMOLALITY 285 mosm/kg (275-300); CALCIUM 8.3 mg/dL (8.5-10.1); CARBON DIOXIDE 37.9 mmol/L (21.0-32.0); CHLORIDE - SERUM 98 mmol/L (98-107); CREATININE - SERUM 0.9 mg/dL (0.6-1.3); GLUCOSE 287 mg/dL (74-106); MAGNESIUM - SERUM 1.9 mg/dL (1.8-2.4); PHOSPHOROUS 4.6 mg/dL (2.5-4.9); SODIUM 136 mmol/L (136-145); UREA NITROGEN 25 mg/dL (7-18); eGFR NON AFRICAN AMERICAN > 90 mL/min (90-120)
[2019-07-04 07:59] VITALS: BP 121/79
--- NOTE | 2019-07-04 10:49 | NUR ---
AWAITING DC HOME, NO DISTRESS NOTED, O2 PER NC AT 5
[2019-07-04 12:07] VITALS: BP 128/78
[2019-07-04] MEDS ORDERED: LEVOFLOXACIN500 MG PO (14:46)
[2019-07-04] MEDS ORDERED: SINGULAIR10 MG PO (15:17)
[2019-07-04] MEDS ORDERED: DALIRESP500 MCG PO (15:17)
[2019-07-04] MEDS ORDERED: SYMBICORT 16010.2 GM INH (15:18)
[2019-07-04] MEDS ORDERED: TESSALON PERLE100 MG PO (15:19)
[2019-07-04] MEDS ORDERED: PREDNISONE10 MG PO (15:21)
--- NOTE | 2019-07-04 15:45 | NUR ---
SPOKE WITH PT REGARDING REFERRAL TO TOBACCO QUITLINE. HE DECLINED.
--- NOTE | 2019-07-04 16:13 | NUR ---
1600, IV D/C, TIP INTACT, REVIEWED DC WITH PT AND FAMILY, VOICED NO CONCERNS, TAKEN TO PRIVATE VEHICLE PER W/C, O2 IN PLACE
--- NOTE | 2019-07-05 14:17 | MORECARE ---
CASE MANAGEMENT DISCHARGE SUMMARY PATIENT: MEHDI RANDALL UNIT: [id number] ADM DATE: 06/30/19 AGE: 54 : 65 SEX: M ROOM/BED: D.2206 AUTHOR: ADELAIDADOC PHYSICIAN: REFERRING PHYSICIAN: VAZQUEZ IVAN MD DATE OF SERVICE: 07/05/19 Discharge Plan Patient Name: MEHDI RANDALL Facility: [facility]:[place] : 1965 Planned Disposition: Home or Self Care Anticipated Discharge Date: Discharge Date: 07/04/2019 Expected LOS: Initial Reviewer: [id number] Initial Review Date: 06/30/2019 Generated: 07/05/19 3:16 pm Comments DCP- Discharge Planning Updated by [id number]: Mallorie Lomeli on 07/02/19 1:[address] Patient Name: MEHDI RANDALL Admission Status: Elective Accout number: [id number] Admission Date: 06-30-2019 : 1965 Admission Diagnosis: Attending: VAZQUEZ IVAN Current LOS: 2 Anticipated DC Date: Planned Disposition: Home or Self Care Primary Insurance: MEDICAID [place] Discharge Planning Comments: CM met with patient to complete initial dc planning assessment. CM educated patient on the CM role and verbal consent given by patient to complete assessment. Patient lives at home with his where he is independent with his care. At discharge patient plans to return home and feels this is a safe discharge. CM discussed availability of home health, rehab services, and medical equipment. He has a CPAP, home o2, portable O2, concentrator and nebulizer at home. All DME came from [facility] and right of choice signed and placed in chart. He does need a new mask for his CPAP and I have called Bernie at [facility] to try to get it, she stated that [employer] will not pay for supplies and the cost will be 140.00 dollars and 15.00 for the tubing. Patient denied known discharge needs at this time. CM will continue to follow and will assist as needed with dc plans/needs. Turntable Man: Mallorie Lomeli DCPIA - Discharge Planning Initial Assessment Updated by [email or web address]: Mallorie Lomeli on 07/02/19 1:50 pm * Is the patient Alert and Oriented? Yes * How many steps to enter\exit or inside your home? * PCP BESSIE * Pharmacy [facility] * Preadmission Environment Home with Family * ADLs Independent * Equipment CPAP Nebulizer Other Oxygen * Other Equipment HOME O2 CONCENTRATOR * List name and contact numbers for known caregivers / representatives who currently or will assist patient after discharge: IBRAHIMA FELISHANIKA [phone] * Verbal permission to speak to the caregivers and representatives has been obtained from the patient. N/A * Community resources currently utilized None * Additional services required to return to the preadmission environment? Yes * Can the patient safely return to the preadmission environment? Yes * Has this patient been hospitalized within the prior 30 days at any hospital? No Coverage Notice Reviewer: [id number] - Mallorie Lomeli Notice Issued Date-Time: 07/02/2019 9:00 Notice Type: Patient Choice Letter Notice Delivered To: Patient Relationship to Patient: Radio Electrician Name: Delivery Method: HAND - Hand Delivered Naomi Days: Prior Verbal Notification: Recipient Understood Notice: Yes Recipient Signature: Yes Med Rec Note Co-signed by Attending: Coverage Notice Comment: Last DP export: 07/02/19 1:17 Patient Name: MEHDI RANDALL Page [phone] at 1417 All edits/amendments must be made on the electronic document DICTATION DATE: 07/05/191415 ECONOMIC SPECIALIST: HARIS 07/05/191415 RPT#: [id number] DC DATE:07/04/19 STATUS: DIS IN [facility] [address] [place] [address] END OF REPORT
== END 2019-07-04 16:00 | disposition home or self-care (01) | DRG 189 ==
LOC: D.MS 17:42
PROVIDERS: Family Medicine; Internal Medicine Hematology & Oncology; Internal Medicine Pulmonary Disease; ADMIT Internal Medicine Nephrology; ATTEND Internal Medicine Nephrology
DX: J96.21 Acute and chronic respiratory failure with hypoxia (principal); Z68.41 Body mass index [BMI] 40.0-44.9, adult; J44.0 Chronic obstructive pulmonary disease with (acute) lower respiratory infection; J44.1 Chronic obstructive pulmonary disease with (acute) exacerbation; E11.65 Type 2 diabetes mellitus with hyperglycemia; D75.1 Secondary polycythemia; E66.01 Morbid (severe) obesity due to excess calories; K21.9 Gastro-esophageal reflux disease without esophagitis; G47.33 Obstructive sleep apnea (adult) (pediatric); J96.22 Acute and chronic respiratory failure with hypercapnia; Z99.81 Dependence on supplemental oxygen; I10 Essential (primary) hypertension; E78.5 Hyperlipidemia, unspecified; J20.9 Acute bronchitis, unspecified; R04.0 Epistaxis

== ENCOUNTER 2020-04-14 14:34 | Observation (INO) | payer MEDICAID ==
[~2020-04-14] VITALS: Ht 180.3 cm; Wt 136.4 kg
--- NOTE | ~2020-04-14 | OP ---
PATIENT NAME: MEHDI RANDALL MEDICAL RECORD: [id number] :[birth year] LOCATION:D.M2 D.2128 ADMISSION DATE:04/14/20 SURGEON: DAVID WARREN MD DATE OF OPERATION: 04/15/2020 PROCEDURE: Left heart catheterization, plus stent to the right coronary, plus 4-vessel arteriography, these all performed via right femoral approach. CATHETERS: A 5-Sami sheath, 5/4 left and right Stephania, 5/4 pig. FINDINGS: Left ventriculography shows mild inferior hypokinesis, LV function minimally reduced at 45%. CORONARY ANATOMY: LEFT MAIN: Left main is free of disease. LAD: Free of diagonal system. CIRCUMFLEX: Small vessel, free of disease. RIGHT CORONARY ARTERY: Large dominant right has a 90% stenosis in its mid portion with some thrombus present. FOUR-VESSEL ARTERIOGRAPHY. The right diagnostic catheter was selectively engaged into the right common carotid. Right common carotid shows mild luminal irregularities with no obstructive disease. Right external carotid shows luminal irregularities up to 40%. Right internal carotid is free of disease. The diagnostic catheter was then used and selectively engaged into the left common carotid. Left common carotid is a smooth-walled vessel, free of disease. Left internal carotid is smooth walled, free of disease. Left external carotid luminal irregularities, no flow obstructive disease. DESCRIPTION OF PROCEDURE: A 5-Sami sheath was exchanged for a 6-Sami sheath. AR1 guiding catheter provided excellent guide catheter support followed by BMW wire was placed across the 90% stenosed right down the distal portion of vessel. Stent deployed was a 3.5 x 15 mm drug-eluting stent up to 14 atmospheres for 45 seconds. Final angiography showed excellent resolution of 90% stenosis, no significant residual. NA flow was 3 throughout the procedure. Heparin and Integrilin was used during the case. Plavix was loaded in the lab. The patient was pretreated with steroids. Sheath closed with ExoSeal device. TRANSINT:[id number] Voice Confirmation ID: [id number] DOCUMENT ID: [id number] DAVID WARREN MD CC: [id number] DICTATION DATE: 04/15/20 0952 COMMERCIAL FLOOR COVERING INSTALLER: 04/15/20 1041 ADM IN [facility] [id number] [place] [address]
--- NOTE | ~2020-04-14 | HEMODYNAMI ---
PATIENT:MEHDI RANDALL MEDICAL RECORD: [id number] : 65 [id number] ADMISSION DATE: 04/14/20 Generatedon:04/15/20209:51 Patient name: MEHDI RANDALL Patient #: [id number] SSN: [id number] : 1965 Date of study: 04/15/2020 Page: Of Hemodynamic Procedure Report Patient Data Patient Demographics Procedure consent was obtained First Name: MEHDI Gender: Male Last Name: PRAKASH : 1965 [facility] Initial: SONA Age: 54 year(s) Patient #: [id number] Race: SSN: [id number] Additional ID: [id number] Contact details Address: [address] [place] [address] State: [place] City: [facility] Zip code: [address] Past Medical History Allergies Allergen Reaction Date Comments Reported Iodine 04/15/2020 Admission Admission Data Admission Date: 04/14/2020 Admission Time: 18:06 Room #: D.2128 Height (in.): 70.87 BSA: 2.5 (m2) Height (cm.): 180 BMI: 41.98 (kg/m2) Weight (lbs.): 299.83 Weight (kg.): 136 Lab Results Lab Result Date: 04/15/2020 Lab Result Time: 0:00 Biochemistry Name Units Result Min Max BUN mg/dl 22 --(----)-* 7 18 CK-MB ng/ml 204.3 --(----)-* 0 3.6 Creatinine mg/dl 1 --(--*-)-- 0.6 1.3 eGFR ml/min 82.15381 -*(----)-- 90 120 NONAFRICAN Troponin l ng/ml 40.254 --(----)-* 0 0.06 CBC Name Units Result Min Max Hematocrit % 57.6 --(----)-* 42 54 Hemoglobin g/dl 18.8 --(----)-* 13.5 17.5 Procedure Procedure Types Cath Procedure Diagnostic Procedure [facility] w/Coronaries Sedation Charges Moderate Sedation up to 15 minutes PCI Procedure Coronary Stent Coronary Stent Initial Hemochron ACT Test Procedure Description Procedure Date Procedure Date: 04/15/2020 Procedure Start Time: 9:19 Procedure End Time: 9:49 Procedure Staff Name Function Radames Mesa RN Nurse Mini Martins RT Monitor Maggie Hermosillo RT Monitor Kathrine Paniagua RT Scrub Antelmo Cedeno MD Performing Physician Procedure Data Cath Procedure Fluoroscopy Diagnostic fluoroscopy Total fluoroscopy Time: 5.8 time: 5.8 min min Diagnostic fluoroscopy Total fluoroscopy dose: dose: 1834 mGy 1834 mGy Contrast Material Contrast Material Type Amount (ml) Isovue 300 153 Entry Location Entry Primary Successful Side Size Upsize Upsize Entry Closure Succes sful Closure Location (Fr) 1 (Fr) 2 (Fr) Remarks Device Remarks Femoral Right 5 Fr 6 Fr Exoseal artery Short Estimated blood loss: 10 ml Diagnostic catheters Device Type Used For End Catheter Placement MULTIPACK JL 4.0 5Fr Left Coronary catheter Angiography MULTIPACK 3DRC 5Fr Right Coronary catheter Angiography MULTIPACK Pigtail 5 Fr LV Angiography catheter Procedure Complications No complications Procedure Medications Medication Administration Route Dosage Oxygen 8 l/min Heparin Flush Bag added to field 2 bags (1000units/500ml NS) 0.9% NaCl I.V. 100 ml/hr Lidocaine 2% added to field 20 Fentanyl I.V. 50 mcg Versed I.V. 1 mg Fentanyl I.V. 50 mcg Versed I.V. 1 mg Fentanyl I.V. 50 mcg Fentanyl I.V. 50 mcg Heparin Bolus I.V. 5000 units Integrilin (Bolus I.V. 11.3 ml 2mg/ml) Plavix P.O. 600 mg Hemodynamics Rest BSA: 2.5 (m2) HGB: 18.8 (g/dl) O2 Consumption: Estimated: 307.26 (ml/min) O2 Con sumption indexed: Estimated:122.9 (ml/min/m) Heart Rate: 81 (bpm) Pressure Samples Time Site Value (mmHg) Purpose Heart Use Rate(bpm) 9:28 LV 105/26,28 Snapshot 88 Snapshots Pre Cath Intra NCS Post Cath Vital Signs Time Heart Resp SPO2 etCO2 NIBP (mmHg) Rhythm Pain Sedation Rate (ipm) (%) (mmHg) Status Level (bpm) 9:12:29 86 34 92 0 131/95(112) NSR 0 (11) 10(A) , No pain 9:16:49 81 34 91 0 127/89(99) NSR 0 (11) 10(A) , No pain 9:21:09 83 23 88 0 129/88(109) NSR 0 (11) 10(A) , No pain 9:25:29 85 16 89 0 129/87(104) NSR 0 (11) 10(A) , No pain 9:29:49 87 25 90 0 134/92(117) NSR 0 (11) 10(A) , No pain 9:34:07 89 32 89 0 124/91(104) NSR 0 (11) 10(A) , No pain 9:38:25 82 26 90 0 124/85(103) NSR 0 (11) 10(A) , No pain 9:42:43 90 28 88 0 134/90(107) NSR 0 (11) 10(A) , No pain 9:47:04 85 17 90 0 136/96(111) NSR 0 (11) 10(A) , No pain Medications Time Medication Route Dose Verified Delivered Reason Notes Effectiveness by by 9:10:45 Oxygen Simple 8 Antelmo Radames used for Mask l/min St Thad Mesa RN procedure 9:10:56 Heparin Flush added 2 Antelmo Crum used for Bag to bags St Thad Mesa RN procedure (1000units/500ml field CAMERON NS) 9:11:08 0.9% NaCl I.V. 100 Antelmo Crum Per physician ml/hr St Thad Mesa RN, MD 9:11:19 Lidocaine 2% added 20ml Antelmo Crum for local to vial St Thad Mesa RN anesthetic field CAMERON 9:15:41 Fentanyl I.V. 50 Antelmo Crum for sedation mcg St Thad Mesa RN, MD 9:15:50 Versed I.V. 1 mg Antelmo Crum for sedation St Thad Mesa RN, MD 9:17:59 Fentanyl I.V. 50 Antelmo Crum for sedation mcg St Thad Mesa RN, MD 9:18:06 Versed I.V. 1 mg Antelmo Crum for sedation St Thad Mesa RN, MD 9:20:09 Fentanyl I.V. 50 Antelmo Crum for sedation mcg St Thad Mesa RN, MD 9:31:14 Fentanyl I.V. 50 Antelmo Crum for sedation mcg St Thad Mesa RN, MD 9:31:24 Heparin Bolus I.V. 5000 Antelmo Crum for units St Thad Mesa RN anticoagulation 9:31:40 Integrilin I.V. 11.3 Antelmo Crum for (Bolus 2mg/ml) ml St Thad Mesa RN anticoagulation 9:42:00 Plavix P.O. 600 [address]mo [address] for mg St Thad Mesa RN antiplatelet MD therapy Procedure Log Time Note 8:26:02 Informed consent obtained and on chart 8:41:59 Procedure Status Urgent Heart Cath (IP). 8:42:00 Time tracking: Regular hours (M-F 7:00 - 5:00) 8:42:03 Plan of Care:Hemodynamics will remain stable., Cardiac rhythm will remain stable., Comfort level will be maintained., Respiratory function will remain adequate., Patient/ family verbilizes understanding of procedure., Procedure tolerated without complication., Recovers from procedure without complications.. 8:42:09 H&P Date Dictated: 04/14/2020 Within 30 days and on chart., H&P Addendum completed by physician on day of procedure. (MUST COMPLETE FOR ALL OUTPATIENTS). 8:43:49 Patient allergic to Iodine 8:52:12 Mini Martins RT(R) sent for patient. Start room use. 9:10:45 Oxygen 8 l/min Simple Mask was administered by Radames Mesa RN; used for procedure; Verbal order read back and verified. 9:10:56 Heparin Flush Bag (1000units/500ml NS) 2 bags added to field was administered by Radames Mesa RN; used for procedure; Verbal order read back and verified. 9:11:05 Patient received from Med II to CCL 1 Alert and oriented. Tansferred to table in Supine position. 9:11:08 0.9% NaCl 100 ml/hr I.V. was administered by Radames Mesa RN; Per physician; Verbal order read back and verified. 9:11:12 Correct patient and procedure confirmed by team. 9:11:13 ECG and BP/O2 sat monitors applied to patient. 9:11:14 Vital chart was started 9:11:16 Baseline sample Acquired. 9:11: Lidocaine 2% 20ml vial added to field was administered by Radames Mesa RN; for local anesthetic; Verbal order read back and verified. :: Rhythm: sinus rhythm :: Full Disclosure recording started :: 9::30 Pre-procedure instructions explained to patient. 9::30 Pre-op teaching completed and patient verbalized understanding. 9:11:33 Family unavailable. 9:11:35 Patient NPO since Midnight. 9:11:43 Is the patient allergic to Iodine/contrast media? Yes. 9:11:47 Was the patient premedicated? Yes 9:12:02 Is patient on blood thinner?No 9:12:23 Patient diabetic? Yes. 9:12:54 If diabetic: On Metformin? No 9:12:56 ----Pre-sedation anethsthesia assessment.---- 9:13:00 Previous problem with sedation/anesthesia? No ? 9:13:03 Snore? Yes 9:13:08 Sleep apnea? No 9:13:14 Deviated septum? Unknown 9:13:17 Opens mouth fully? Yes 9:13:20 Sticks out tongue? Yes 9:13:32 Airway obstruction? Yes copd 9:13:36 Dentures? No ? 9:13:41 Pre procedure: right dorsailis pedis pulse 1+ Palpable, but thready & weak; easily obliterated 9:13:53 IV patent on arrival in right forearm with 0.9% NaCl at [facility]. 9:14:04 Right groin area was prepped with chlora-prep and draped in sterile fashion 9:14:07 Alarms reviewed by R. N. 9:14:07 Sharps counted by scrub and verified by R.N. 9:14:09 Physician arrived 9:14:10 --------ALL STOP TIME OUT------ 9:14:11 Final Timeout: patient, procedure, and site verified with staff and physician. All members of the team are in agreement. 9:14:14 Right groin site verified by team. 9:14:22 Fire Safety Assessment: A--An alcohol-based skin anteseptic being used preoperatively., C--Open oxygen or nitrous oxide is being used., D--An ESU, laser, or fiber-optic light is being used. 9:14:29 Physical assessment completed. ASA score P 2 - A patient with mild systemic disease as per Antelmo Cedeno MD. 9:14:39 2) 60-89 Mildly reduced kidney function, and other findings (as for stage 1) point to kidney disease. 9:14:44 Maximum allowable contrast dose (3.7 X eGFR X 0.75)230 ml. 9:14:50 Sedation plan: IV Moderate Sedation Medication:Versed, Fentanyl 9:14:55 Use device set Femoral Dx 9:14:57 ACIST Syringe (55012) opened to sterile field. 9:14:59 Bag Decanter (2002S) opened to sterile field. 9:14:59 Medline Cath Pack ([id number]) opened to sterile field. 9:15:01 ACIST Hand Control (81541) opened to sterile field. 9:15:02 ACIST Manifold (92070) opened to sterile field. 9:15:02 DIAGNOSTIC Multipack 5Fr catheter set ([id number]) opened to sterile field. 9:15:03 Tegaderm 4 x 4 (1626W) opened to sterile field. 9:15:06 SHEATH 5FR Mcfall (BNS641) opened to sterile field. 9:15:07 EMERALD Guide Wire (886-949) opened to sterile field. 9:15:41 Fentanyl 50 mcg I.V. was administered by Radames Mesa RN; for sedation; Verbal order read back and verified. 9:15:50 Versed 1 mg I.V. was administered by Radames Mesa RN; for sedation; Verbal order read back and verified. 9:17:23 Lab Result : Troponin l 40.254 ng/ml 9:17:23 Lab Result : Hemoglobin 18.8 g/dl 9:17:23 Lab Result : eGFR NONAFRICAN 82.12494 ml/min 9:17:23 Lab Result : BUN 22 mg/dl 9::23 Lab Result : Creatinine 1 mg/dl 9::23 Lab Result : CK-MB 204.3 ng/ml 9::23 Lab Result : Hematocrit 57.6 % 9:17:43 Procedure started. 9:17:59 Fentanyl 50 mcg I.V. was administered by Radames Mesa RN; for sedation; Verbal order read back and verified. 9:18:06 Versed 1 mg I.V. was administered by Radames Mesa RN; for sedation; Verbal order read back and verified. 9:19:04 Zero performed for pressure channel P1 9:19:38 Zero performed for pressure channel P1 9::47 Zero performed for pressure channel P1 9::59 Local anesthetic to right femoral artery with Lidocaine 2% by Antelmo Cedeno MD.INITIAL ACCESS ONLY 9:20:09 Fentanyl 50 mcg I.V. was administered by Radames Mesa RN; for sedation; Verbal order read back and verified. 9:20:15 A 5 Fr sheath was inserted into the Right Femoral artery 9:20:24 A MULTIPACK JL 4.0 5Fr catheter was advanced over the wire and used for Left Coronary Angiography. 9:21:25 LCA angiography performed. 9:21:34 Injector settings: Ml/sec: 3, Volume: 6, 9:21:57 Baseline sample Acquired. 9:22:05 Baseline sample Acquired. 9:22:19 Baseline sample Acquired. 9:22:46 Patient Height : 70.87 inches 9:22:50 Patient Weight : 299.83 lbs 9:23:15 Zero performed for pressure channel P1 9:23:51 Catheter removed. 9:24:00 A MULTIPACK 3DRC 5Fr catheter was advanced over the wire and used for Right Coronary Angiography. 9:24:35 RCA angiography performed. 9:24:40 Injector settings: Ml/sec: 3, Volume: 6, 9:25:16 Right carotid angiography performed. 9:25:30 Injector settings: Ml/sec: 3, Volume: 6, 9:25:48 Left carotid angiography performed. 9:26:13 GUIDE 6FR AR 1.0 catheter ([id number]) opened to sterile field. 9:26:14 INFLATOR Merit BasixCompak (VE4934) opened to sterile field. 9:26:15 SHEATH 6FR Mcfall (VNH795) opened to sterile field. 9:28:06 Catheter removed. 9:28:12 A MULTIPACK Pigtail 5 Fr catheter was advanced over the wire and used for LV Angiography. 9:28:19 Injector settings: Ml/sec: 5, Volume: 15, 9:28:36 LV gram done using HUANG 9:28:44 EF : 45 % 9:28:54 Catheter removed. 9:29:25 WHISPER 300cm guide wire ([id number]) opened to sterile field. 9:29:36 Proceeding to intervention. 9:29:49 Sheath upsized to a 6 Fr Short. 9:30:00 6 Fr AR1 guide catheter was inserted over the wire 9:30:05 ACC Pre-intervention NA Flow is 3. 9:30:16 Pre PCI Site: [place] mRCA has 90% stenosis. 9:30:31 [id number] wire advanced. 9:31:14 Fentanyl 50 mcg I.V. was administered by Radames Mesa RN; for sedation; Verbal order read back and verified. 9:31:24 Heparin Bolus 5000 units I.V. was administered by Radames Mesa RN; for anticoagulation; Verbal order read back and verified. 9:31:40 Integrilin (Bolus 2mg/ml) 11.3 ml I.V. was administered by Radames Mesa RN; for anticoagulation; Verbal order read back and verified. 9:33:29 Wire advanced across lesion. 9:35:12 The EUPHORA 3.0 x 15 Balloon ([id number]) was advanced and then removed because of failure to cross lesion 9:37:09 Place stent Inflation Number: 1 A ARLET OTW 3.5 x 15 stent ([id number]) was prepped and advanced across the Mid RCA . The stent was deployed at 14 KEATON for 0:25 (min:sec) . 9:38:02 Inflation number: 2 The stent balloon was then re-inflated across the Mid RCA to 8 KEATON for 0:10 (min:sec) . 9:39:50 ACC Post-intervention NA Flow is 3. 9:39:55 Stent catheter was removed intact over wire. 9:39:56 Wire removed. 9:39:57 Guide catheter removed. 9:40:04 Post PCI Site: [place] mRCA has 0% stenosis. 9:40:20 EXOSEAL 6Fr (EX600) opened to sterile field. 9:41:02 Sheath removed intact; hemostasis achieved with Exoseal to the Right Femoral artery. 9:41:30 Contrast amount:Isovue 300 153ml. 9:41:54 Procedure ended.(Physican Out) 9:42:00 Plavix 600 mg P.O. was administered by Radames Mesa RN; for antiplatelet therapy; Verbal order read back and verified. 9:42:15 Fluoroscopy time 05.80 minutes. 9:42:27 Flurop Dose total: 1834 9:42:27 Fluoroscopy dose: 1834 mGy 9:42:38 Dose Area Product 59393 mGy/cm. 9:42:52 Maximum allowable dose exceeded? No. 9:43:04 ACT drawn and resulted at 199 seconds. (normal therapeutic range 180-240 seconds). 9:46:39 Risk of Mortality: 1.4 9:46:42 Risk of blood transfusion: 0.3 9:46:47 Risk of ELIZABETH: 2.3 9:47:01 Post-op/insertion site Right Femoral artery dressed using a 4 x 4 and Tegaderm. 9:47:07 Post-procedure physical assessment completed. ASA score P 2 - A patient with mild systemic disease as per Antelmo Cedeno MD. 9:47:12 Post procedure rhythm: unchanged. 9:47:16 Estimated blood loss: 10 ml 9:47:18 Post procedure instruction explained to patient.Patient verbalizes understanding. 9:47:18 Patient needs reinforcement of post procedure teaching. 9:48:03 Procedure type changed to Cath procedure, Diagnostic procedure, C, [facility] w/Coronaries, Sedation Charges, Moderate Sedation up to 15 minutes, PCI procedure, Coronary Stent, Coronary Stent Initial, Hemochron ACT Test 9:48:07 Procedure and supply charges have been captured, reviewed, submitted and are correct. 9:49:16 Procedure Complication : No complications 9:49:22 [facility] Findings: MVD- PCI performed (see procedure note) 9:49:24 Vital chart was stopped 9:49:28 See physician's report for complete and final results. 9:49:33 Report given to [facility]. 9:49:37 Patient transfered to [facility] with Bed. 9:49:40 Procedure ended. 9:49:40 Full Disclosure recording stopped 9:49:49 ACC-PCI Only Patient was given prescriptions, or instructed by Antelmo Cedeno MD to start/continue the following medications upon discharge: Plavix 9:49:51 End room use (Document Last) Intervention Summary Intervention Notes Time ActionType Lesion and Equipment Action# Pressure Duration Attributes Used 9:35:12 Discard EUPHORA 3.0 x Balloon 15 Balloon ([id number]) 9:37:09 Place stent Mid RCA ARLET OTW 3.5 1 14 00:25 x 15 stent ([id number]) 9:38:02 Reinflate Mid RCA ARLET OTW 3.5 2 8 00:10 stent x 15 stent balloon ([id number]) Device Usage Item Name Manufacture Quantity Catalog Hospital Part Current Mini [facility] Lot# / Number Charge Number Stock Stock Serial# Code ACIST Syringe Acist 1 36835 344414 705605 099337 20 (24793) Medical Systems Inc Bag Decanter Microtek 1 2001S 108278 32751 323168 5 (2001S) Medical Inc. Medline Cath Medline 1 [id number] 985184 31502 316420 5 Pack ([id number]) ACIST Hand Acist 1 29266 295553 057601 818805 5 Control Medical (07226) Systems Inc ACIST Acist 1 82075 128507 737359 955240 5 Manifold Medical (79710) Systems Inc DIAGNOSTIC Cardinal 1 SU5657 499633 33669 888911 30 Multipack 5Fr Health catheter set (CC1781) Tegaderm 4 x 3M 1 1626W 419591 989613 243712 5 4 (1626W) SHEATH 5FR Terumo 1 XQZ981 712652 175658 142829 5 Mcfall (ASX736) EMERALD Guide Cardinal 1 502-455 565698 273113 095192 5 Wire Health (502-455) MULTIPACK JL Cardinal 1 174665 5 4.0 5Fr Health catheter MULTIPACK Cardinal 1 963994 5 3DRC 5Fr Health catheter GUIDE 6FR AR Medtronic 1 [id number] 591613 43828 466860 1 1.0 catheter (HE8ZY62) INFLATOR IDENT Technology 1 KD7214 983484 651529 937162 15 SeatSwapr BasixCompak (PC1480) SHEATH 6FR Terumo 1 FTT750 859489 134297 627102 40 Mcfall (FRX581) MULTIPACK Cardinal 1 807176 5 Pigtail 5 Fr Health catheter WHISPER 300cm Champagne 1 [id number] 122028 499791 909970 5 guide wire Vascular ([id number]) EUPHORA 3.0 x Medtronic 1 [id number] 412876 028617 774368 5 15 Balloon ([id number]) ARLET OTW 3.5 Medtronic 1 [id number] 218474 4600800 410153 5 [id number] x 15 stent ([id number]) EXOSEAL 6Fr Cardinal 1 EX600 586762 024476 505205 10 (EX600) Health Signature Audit [place] Stage Time Signature Unsigned Intra-Procedure 04/15/2020 Maggie 9:50:11 AM Jaimee RT(R) (CV) Intra-Procedure 04/15/2020 Radames Mesa 9:51:09 AM RN Intra-Procedure 04/15/2020 Antelmo Brewster 9:51:37 AM Thad [facility] [address] [place] [address]
--- NOTE | ~2020-04-14 | CN ---
PATIENT NAME:MEHDI RANDALL MEDICAL RECORD: [id number] : 65 LOCATION:D.M2 D.2128 ADMIT DATE: 04/14/20 ACCOUNT: [id number] CONSULTING PHYSICIAN: DAVID WARREN MD REFERRING PHYSICIAN: SERA SEALS DO DATE OF CONSULTATION: 04/15/2020 HISTORY OF PRESENT ILLNESS: A 54-year-old gentleman with no known history of coronary artery disease. He has a history of hypertension, borderline diabetes mellitus, long-term smoking history, presented with constitutional symptoms over the last 12 hours, had some amaurosis fugax type symptomatology with visual changes and left-sided weakness as well as some slurred speech by his report. This later became intense chest pressure and tightness with marked nausea and diaphoresis. Presented to the ER, found to have enzymes consistent with NSTEMI, EKG changes, showing nonspecific ST-T changes inferolaterally. PAST MEDICAL HISTORY: Includes; 1. History of hypertension. 2. Obstructive pulmonary disease. 3. Borderline diabetes mellitus. 4. Hypercholesterolemia, was on medications previously, but not currently. ALLERGIES: IODINE. SOCIAL HISTORY: Smokes about a pack a day. Recreational marijuana use. No set exercise program. MEDICATIONS: Include albuterol 2 puffs q.i.d., Spiriva 1 puff every day, Mucinex 1 p.o. b.i.d., Symbicort 2 puffs b.i.d. PHYSICAL EXAMINATION: GENERAL: No acute distress, appears stated age. VITAL SIGNS: Blood pressure 144/66, pulse 76 and regular. HEENT: Normocephalic, atraumatic. NECK: Questionable right carotid bruit. HEART: Regular. A II/ systolic ejection murmur. LUNGS: Prolonged expiratory phase with expiratory wheezes. ABDOMEN: Soft, nontender. EXTREMITIES: Pulses are 1+. There is no edema. IMPRESSION AND PLAN: Non-ST elevation myocardial infarction. Concerning symptomatology with amaurosis type symptomatology, dysarthria and left-sided weakness. Currently, neurologically he has recovered; however, given non-ST elevation myocardial infarction and multiple risk factors, we will plan for angiography, four-vessel arteriography in the same setting. Further recommendations based on results of the above. TRANSINT:[id number] Voice Confirmation ID: [id number] DOCUMENT ID: [id number] CONSULT REPORT [id number] MEHDI RANDALL GREGORY A MD CC: [id number] DICTATION DATE: 04/15/20948 KAIAKO KURA KAUPAPA MAORI: 04/15/20 1355 ADM IN [place] [id number] [place] [id number]
[~2020-04-14 14:34] MED LIST changes: +DALIRESP500 MCG PO; +GLUCOPHAGE500 MG PO; +LEVOFLOXACIN500 MG PO; +SPIRIVA18 MCG INH; +SYMBICORT 16010.2 GM INH; +SYMBICORT 80-10.2 GM INH; +TESSALON PERLE100 MG PO
[2020-04-14 15:02] VITALS: BP 156/89
[2020-04-14 15:06] LABS: BASOPHILS 0.3 % (0-2); HEMATOCRIT 58.3 % (42.0-54.0); HEMOGLOBIN 19.7 g/dL (13.5-17.5); IMMATURE GRANULOCYTES 0.6 % (0-5); MCH 31.2 pg (26.0-34.0); MCHC 33.8 g/dL (31.0-37.0); MCV 92.4 fL (80.0-100.0); MEAN PLATELET VOLUME 10.2 fL (7.4-10.4); MONOCYTES 9.2 % (2-11); NEUTROPHILS 76.9 % (40-80); PLATELET COUNT 169 10x3/uL (130-400); RBC 6.31 10x6/uL (4.20-6.10); RDW 14.1 % (11.5-14.5)
[2020-04-14 15:22] LABS: CALC OSMOLALITY 280 mosm/kg (275-300); CALCIUM 8.8 mg/dL (8.5-10.1); CARBON DIOXIDE 26.8 mmol/L (21.0-32.0); CHLORIDE - SERUM 98 mmol/L (98-107); GLUCOSE 318 mg/dL (74-106); SODIUM 134 mmol/L (136-145); UREA NITROGEN 16 mg/dL (7-18); eGFR NON AFRICAN AMERICAN 83 mL/min (90-120)
[2020-04-14 15:28] LABS: APTT 41.9 SECONDS (22.8-39.4); INR 1.02 (0.85-1.17); PROTIME 13.3 SECONDS (11.6-15.0)
[2020-04-14 15:29] LABS: D-DIMER-QUANTITATIVE 0.35 ug/mLFEU (0.20-0.54)
[2020-04-14 15:44] LABS: ALBUMIN 3.7 g/dL (3.4-5.0); ALKALINE PHOSPHATASE 70 U/L (30-120); ALT (SGPT) 24 U/L (10-68); BILIRUBIN - TOTAL 0.57 mg/dL (0.2-1.3); CKMB 10.4 U/L (0.0-3.6); CREATINE KINASE 276 UL (21-232); MAGNESIUM - SERUM 1.6 mg/dL (1.8-2.4); PROTEIN - SERUM 8.2 g/dL (6.4-8.2)
--- NOTE | 2020-04-14 20:30 | NUR ---
PT ARRIVED TO ROOM. AT BEDSIDE, NOTIFIED AND ER NURSE THAT PT CANNOT HAVE FAMLIY WHEN THEY ARE PUI. 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 PT STATES HE USES 7-8L HF NC AT HOME, PLACE ON 7L, SPO2 89%. PROVIDED ZOFRAN PER PRN ORDER FOR N/V. NO FURHTER NEEDS EXPRESSED AT THIS TIME. EDUCATED USE OF CALL LIGHT FOR ASSITANCE. ESCORTED PTS TO ER ENTRANCE. NO S/S OF DISTRESS OBSERVED. WILL CPOC.
[2020-04-14 23:28] VITALS: BP 91/57
--- NOTE | 2020-04-14 23:33 | NUR ---
ADMIT VITALS 97.9 HR 87 BP 105/64 RR 24 O2 90% ON 3L
--- NOTE | 2020-04-15 | NUR ---
PT C/O OF N/V. 02 92% ON 7L, CHEST PAIN DESCRIBED PRESSURE AND RADIATES TO LEFT ARM. PT NPO PER ORDER, UPDATE GIVEN TO . NO FURTHER VOICED C/O OR CONCERNS. NO S/S OF IMMEDIATE DISTRESS OBSERVED. ENCOURAGED CALL LIGHT FOR ASSISTANCE. WILL CPOC.
[2020-04-15 01:10] LABS: CKMB 249.4 U/L (0.0-3.6)
[2020-04-15 01:16] LABS: CREATINE KINASE 2333 UL (21-232)
--- NOTE | 2020-04-15 01:32 | NUR ---
NOTIFIED DR WARREN OF ELEVATED TROPONIN FROM INCREASE OF O.640 TO 51.98 PT WITH N/V AND HAS RECIEVED IV MORPHINE AND IV ZOFRAN. ORDERS TO KEEP PATIENT NPO AND HEART CATH TO BE DONE IN AM.
--- NOTE | 2020-04-15 01:39 | NUR ---
ALSO REPORTED TO DR WARREN THAT PT HAS IODINE/IV DYE ALLERGY. ORDERS TO TREAT WITH SOLUMEDROL RECEIVED.
--- NOTE | 2020-04-15 02:08 | NUR ---
PRE MEDS GIVEN FOR IODINE ALLERGY. PT TOLERATED WELL. NO FURTHER C/O OR CONCERNS.
[2020-04-15 02:40] VITALS: Ht 180.3 cm; Wt 136.4 kg
[2020-04-15 04:00] VITALS: BP 103/62
[2020-04-15 05:26] LABS: BASOPHILS 0.1 % (0-2); EOSINOPHILS 0.2 % (0-7); HEMATOCRIT 57.6 % (42.0-54.0); HEMOGLOBIN 18.8 g/dL (13.5-17.5); IMMATURE GRANULOCYTES 0.6 % (0-5); LYMPHOCYTES 4.9 % (15-50); MCH 30.6 pg (26.0-34.0); MCHC 32.6 g/dL (31.0-37.0); MCV 93.7 fL (80.0-100.0); MEAN PLATELET VOLUME 10.3 fL (7.4-10.4); MONOCYTES 2.6 % (2-11); NEUTROPHILS 91.6 % (40-80); PLATELET COUNT 149 10x3/uL (130-400); RBC 6.15 10x6/uL (4.20-6.10); RDW 14.1 % (11.5-14.5)
[2020-04-15 05:56] LABS: ALBUMIN 3.5 g/dL (3.4-5.0); ALKALINE PHOSPHATASE 64 U/L (30-120); BILIRUBIN - TOTAL 0.57 mg/dL (0.2-1.3); CALCIUM 8.8 mg/dL (8.5-10.1); CARBON DIOXIDE 28.9 mmol/L (21.0-32.0); CHLORIDE - SERUM 100 mmol/L (98-107); CKMB 204.3 U/L (0.0-3.6); GLUCOSE 291 mg/dL (74-106); MAGNESIUM - SERUM 1.8 mg/dL (1.8-2.4); PROTEIN - SERUM 7.9 g/dL (6.4-8.2); SODIUM 136 mmol/L (136-145); eGFR NON AFRICAN AMERICAN 83 mL/min (90-120)
[2020-04-15 05:57] LABS: ALT (SGPT) 55 U/L (10-68); CALC OSMOLALITY 285 mosm/kg (275-300); CREATINE KINASE 1844 UL (21-232); POTASSIUM - SERUM 5.3 mmol/L (3.5-5.1); UREA NITROGEN 22 mg/dL (7-18)
[2020-04-15 05:58] LABS: TROPONIN-I 40.254 ng/mL (0.000-0.060)
[2020-04-15 06:41] LABS: CHOL - HDL RATIO 8.7 ratio (2.3-4.9); LDL-HDL RATIO 5.6 ratio (1.5-3.5)
--- NOTE | 2020-04-15 08:12 | NUR ---
AM MEDS GIVEN AT THIS TIME. CONSENTS ALSO SIGNED BY PT AND PLACED ON CHART. PT A/O X4, RESP EVEN AND UNLABORED ON 7L HF. HEART MONITOR SHOWING SR WITH RATE OF 86. WENT OVER PLAN OF CARE WITH PT, PT DENIES ANY NEEDS AT THIS TIME. CALL LIGHT IN REACH, WILL CONTINUE PLAN OF CARE.
[2020-04-15 08:29] VITALS: BP 144/66
[2020-04-15 08:48] LABS: ALT (SGPT) 54 U/L (10-68); CALC OSMOLALITY 287 mosm/kg (275-300); CALCIUM 8.5 mg/dL (8.5-10.1); CARBON DIOXIDE 28.8 mmol/L (21.0-32.0); CHLORIDE - SERUM 100 mmol/L (98-107); CHOLESTEROL, TOTAL 241 mg/dL (0-200); GLUCOSE 288 mg/dL (74-106); HDL CHOLESTEROL 24 mg/dL (32-96); LDL CHOLESTEROL 158 mg/dL (0-100); LDL-HDL RATIO 6.6 ratio (1.5-3.5); POTASSIUM - SERUM 5.5 mmol/L (3.5-5.1); SODIUM 137 mmol/L (136-145); TRIGLYCERIDE 299 mg/dL (30-200); UREA NITROGEN 22 mg/dL (7-18); eGFR NON AFRICAN AMERICAN 83 mL/min (90-120)
[2020-04-15 10:07] VITALS: BP 128/74
--- NOTE | 2020-04-15 10:13 | NUR ---
RECEIVED PT BCK TO ROOM 2127 VIA BED. PT A/O X4. RESP EVEN AND UNLABORED ON 7L. VITAL SIGNS STABLE. RT GROIN DRESSING CDI, NO S/S OF HEMATOMA OR BLEEDING. PROVIDED PT WITH CUP OF ICE WATER. PT DENIES ANY OTHER NEEDS AT THIS TIME. CALL LIGHT IN REACH, NAD NOTED, WILL CONTINUE TO MONITOR.
[2020-04-15 10:58] VITALS: BP 107/73
--- NOTE | 2020-04-15 11:05 | NUR ---
NO CHANGES TO RT GROIN FROM PREVIOUS ASSESSEMENT. VITAL SIGNS STABLE. BLOOD SUGAR OF 338, 12UNITS OF HUMALOG GIVEN PER S/S. PT DENIES ANY NEEDS AT THIS TIME. CALL LIGHT IN REACH, NAD NOTED, WILL CONTINUE TO MONITOR.
[2020-04-15 12:17] VITALS: BP 116/84
[2020-04-15] MEDS ORDERED: OMNICEF300 MG PO (14:19)
[2020-04-15] MEDS ORDERED: PLAVIX75 MG PO (14:20)
[2020-04-15] MEDS ORDERED: ZITHROMAX250 MG PO (14:20)
[2020-04-15] MEDS ORDERED: LIPITOR20 MG PO (14:35)
[2020-04-15] MEDS ORDERED: BISOPROLOL FUMAR5 MG PO (14:36)
[2020-04-15] MEDS ORDERED: BAYER CHEWABLE81 MG PO (14:36)
--- NOTE | 2020-04-15 15:03 | NUR ---
PROVIDED VERBAL AND WRITTEN DISCHARGE TEACHING TO PT, WHO VERBALIZED UNDERSTANDING REGARDING TEACHING. D/C RT FA IV WITH CATHETER TIP INTACT. D/C HEART MONITOR AND TAKEN TO MANUFACTURING ASSOCIATE. PT LEFT UNIT VIA WHEELCHAIR, WITH ALL BELONGINGS, NAD NOTED.
== END 2020-04-15 15:20 | disposition home or self-care (01) ==
LOC: D.ER 14:34 → D.M2 18:06 → OBSVTIME 18:06 → D.M2 04-15 15:20
PROVIDERS: Emergency Medicine; Internal Medicine Interventional Cardiology; ADMIT Family Medicine; ATTEND Family Medicine
DX: I25.110 Atherosclerotic heart disease of native coronary artery with unstable angina pectoris (principal); R79.89 Other specified abnormal findings of blood chemistry; R55 Syncope and collapse; J44.9 Chronic obstructive pulmonary disease, unspecified; E78.5 Hyperlipidemia, unspecified; K21.9 Gastro-esophageal reflux disease without esophagitis; D75.1 Secondary polycythemia; E11.65 Type 2 diabetes mellitus with hyperglycemia; E87.1 Hypo-osmolality and hyponatremia; F17.203 Nicotine dependence unspecified, with withdrawal; J18.9 Pneumonia, unspecified organism; Z99.81 Dependence on supplemental oxygen; Z79.84 Long term (current) use of oral hypoglycemic drugs; J96.11 Chronic respiratory failure with hypoxia; Z20.828 Contact with and (suspected) exposure to other viral communicable diseases; I21.4 Non-ST elevation (NSTEMI) myocardial infarction

== ENCOUNTER 2020-10-09 00:28 | Inpatient (IN) | payer MEDICAID ==
[~2020-10-09] VITALS: Ht 180.3 cm; Wt 136.1 kg
[~2020-10-09 00:28] MED LIST changes: +BAYER CHEWABLE81 MG PO; +BISOPROLOL FUMAR5 MG PO; +LIPITOR20 MG PO; +PLAVIX75 MG PO; +ZITHROMAX250 MG PO
[2020-10-09 01:29] LABS: SARS-CoV-2 ANTIGEN NEGATIVE- SARS-COV-2 (NEGATIVE)
[2020-10-09 01:33] LABS: BASOPHILS 0.3 % (0-2); EOSINOPHILS 1.8 % (0-7); HEMATOCRIT 49.7 % (42.0-54.0); HEMOGLOBIN 15.4 g/dL (13.5-17.5); IMMATURE GRANULOCYTES 0.4 % (0-5); LYMPHOCYTE ABS# 0.93 10x3/uL (1.32-3.57); LYMPHOCYTES 11.8 % (15-50); MCH 30.5 pg (26.0-34.0); MCV 98.4 fL (80.0-100.0); MEAN PLATELET VOLUME 10.4 fL (7.4-10.4); MONOCYTES 9.1 % (2-11); NEUTROPHIL ABS# 6.06 10x3/uL (1.78-5.38); NEUTROPHILS 76.6 % (40-80); PLATELET COUNT 179 10x3/uL (130-400); RBC 5.05 10x6/uL (4.20-6.10); RDW 14.9 % (11.5-14.5); WBC 7.9 10x3/uL (4.8-10.8)
--- NOTE | 2020-10-09 01:40 | NUR ---
RT CONTACTED ABOUT ART STICK
[2020-10-09 01:44] LABS: CALC OSMOLALITY 286 mosm/kg (275-300); CALCIUM 8.2 mg/dL (8.5-10.1); CARBON DIOXIDE 33.9 mmol/L (21.0-32.0); CHLORIDE - SERUM 101 mmol/L (98-107); CREATININE - SERUM 0.8 mg/dL (0.6-1.3); GLUCOSE 194 mg/dL (74-106); POTASSIUM - SERUM 4.1 mmol/L (3.5-5.1); SODIUM 141 mmol/L (136-145); UREA NITROGEN 14 mg/dL (7-18); eGFR NON AFRICAN AMERICAN > 90 mL/min (90-120)
[2020-10-09 01:45] LABS: APTT 39.3 SECONDS (22.8-39.4); INR 1.18 (0.85-1.17); PROTIME 13.9 SECONDS (11.6-15.0)
[2020-10-09 01:46] LABS: D-DIMER-QUANTITATIVE 1.23 ug/mLFEU (0.20-0.54)
[2020-10-09 02:01] LABS: ALBUMIN 2.9 g/dL (3.4-5.0); ALKALINE PHOSPHATASE 72 U/L (30-120); ALT (SGPT) 37 U/L (10-68); BILIRUBIN - TOTAL 0.55 mg/dL (0.2-1.3); CKMB 1.4 U/L (0.0-3.6); CREATINE KINASE 76 UL (21-232); MAGNESIUM - SERUM 1.6 mg/dL (1.8-2.4); PRO BNP 382 pg/mL (0-125); PROTEIN - SERUM 6.4 g/dL (6.4-8.2); TROPONIN-I 0.023 ng/mL (0.000-0.060)
--- NOTE | 2020-10-09 03:47 | NUR ---
PATIENT RESTING IN ROOM WITH LIGHTS DIMMED. NAD NOTED AND URINAL AT BEDSIDE.
--- NOTE | 2020-10-09 07:45 | NUR ---
RT REMOVED PT FROM BIPAP FOR BREAKFAST AND A BREAK FROM THE MASK
[2020-10-09 10:58] VITALS: BP 135/85
--- NOTE | 2020-10-09 11:05 | NUR ---
RT PLACE PT BACK ON BIPAP
[2020-10-09 13:00] VITALS: BP 99/61
[2020-10-09 15:11] VITALS: Ht 180.3 cm; Wt 136.1 kg
[2020-10-09 19:00] VITALS: BP 117/73
[2020-10-09 21:00] VITALS: BP 115/70
[2020-10-09 23:27] VITALS: BP 124/76
[2020-10-10] VITALS (7 sets, daily range): BP systolic 101–115; BP diastolic 48–70
--- NOTE | 2020-10-10 01:59 | NUR ---
I have reviewed this patient and I concur with the Shift Assessment completed by the Licensed Practical Nurse today this shift.
[2020-10-10 06:05] LABS: BASOPHILS 0 % (0-2); EOSINOPHILS 0 % (0-7); HEMATOCRIT 50.8 % (42.0-54.0); HEMOGLOBIN 15.6 g/dL (13.5-17.5); IMMATURE GRANULOCYTES 0.3 % (0-5); LYMPHOCYTE ABS# 0.46 10x3/uL (1.32-3.57); LYMPHOCYTES 5.3 % (15-50); MCH 29.9 pg (26.0-34.0); MCHC 30.7 g/dL (31.0-37.0); MCV 97.5 fL (80.0-100.0); MEAN PLATELET VOLUME 11.1 fL (7.4-10.4); MONOCYTES 4.8 % (2-11); NEUTROPHIL ABS# 7.76 10x3/uL (1.78-5.38); NEUTROPHILS 89.6 % (40-80); PLATELET COUNT 190 10x3/uL (130-400); RBC 5.21 10x6/uL (4.20-6.10); RDW 14.5 % (11.5-14.5); WBC 8.7 10x3/uL (4.8-10.8)
[2020-10-10 06:39] LABS: ALKALINE PHOSPHATASE 59 U/L (30-120); ALT (SGPT) 31 U/L (10-68); CALCIUM 8.7 mg/dL (8.5-10.1); CARBON DIOXIDE 37.9 mmol/L (21.0-32.0); CHLORIDE - SERUM 94 mmol/L (98-107); CKMB 1.5 U/L (0.0-3.6); CREATINE KINASE 65 UL (21-232); MAGNESIUM - SERUM 1.4 mg/dL (1.8-2.4); POTASSIUM - SERUM 3.9 mmol/L (3.5-5.1); PROTEIN - SERUM 7.2 g/dL (6.4-8.2); SODIUM 136 mmol/L (136-145); eGFR NON AFRICAN AMERICAN 82 mL/min (90-120)
[2020-10-10 06:44] LABS: CALC OSMOLALITY 289 mosm/kg (275-300); GLUCOSE 356 mg/dL (74-106); TROPONIN-I < 0.017 ng/mL (0.000-0.060); UREA NITROGEN 24 mg/dL (7-18)
--- NOTE | 2020-10-10 07:40 | NUR ---
SITTING UP IN BED, AWAKE/ALERT/ORIENTED, T/R SELF AD KEITH, CONT OF B/B WITH BRPs PER SELF AD KEITH, DENIES PAIN/OTHER DISCOMFORT AT THIS TIME, CALL LIGHT/PHONE/WATER WITHIN REACH, NO S/S OF ACUTE DISTRESS OBSERVED.
--- NOTE | 2020-10-10 12:00 | NUR ---
FSBS 407, GAVE 20 UNITS REGULAR INSULIN PER SLIDING SCALE, AND NOTIFIED JOAQUIN STROUD
--- NOTE | 2020-10-10 13:45 | NUR ---
FSBS DIANNE 402, NOTIFIED JEREMIE VEGA TO GIVE 10 UNITS REGULAR INSULIN AT THIS TIME.
--- NOTE | 2020-10-10 14:30 | EC ---
PATIENT:MEHDI RANDALL DATE OF SERVICE: 10/09/20 SEX: M MEDICAL RECORD: [id number] DATE OF : 65 LOCATION:D.M2 D.211 AGE OF PATIENT: 55 ADMISSION DATE: 10/09/20 REFERRING PHYSICIAN: INTERPRETING PHYSICIAN: DAVID WARREN MD ECHOCARDIOGRAM REPORT ECHO CHARGES 4 ECHO COMPLETE Date: 10/09/20 CLINICAL DIAGNOSIS: SOB ECHOCARDIOGRAPHIC MEASUREMENTS (adult normal given) AC root (d.<3.7cm) 2.9 cm LV Septum d (<1.2 cm> 1.1 cm Valve Excursion 1.6 cm LV Septum (systole) 1.6 cm Left Atria (s.<4.0cm> 4.2 cm LVPW d(<1.2cm) 1.2 cm RV (d.<2.3cm) 2.5 cm LVPW (sytole) 1.6 cm LV diastole(<5.6CM) 7.3 cm MV E-F(>70mm/sec) cm LV systole 5.6 cm LVOT Diameter 1.9 cm MV exc.(>10mm) 1.4 cm Est.ejection fraction (50-75%) % DOPPLER: LVIT cm/sec A 90 cm/sec E 121 cm/sec LA cm/sec RVSP 19 mmHg LVOT 107 cm/sec AOP1/2T m/s Asc. Ao 128 cm/sec RVOT 73 cm/sec RA cm/sec PA 93 cm/sec AV Gradient Peak 6.5 mmHg AV Mean 3.7 mmHg AV Area 2.4 cm MV Gradient Peak 7.3 mmHg MV Mean 3.7 mmHg MV Area cm COMMENTS: Soap Chipper: Bashir OLIVIER Border Measurer: 3 Dr. Fox TAPE# Pericardial Effusion N DATE OF SERVICE: Adequate 2D, color flow imaging, spectral Doppler, and M-Mode. No LVH. LV internal dimensions are normal. Wall motion normal. EF greater than or equal to 55%. Aortic valve is tricuspid. No evidence of stenosis by Doppler interrogation. Left atrium is minimally dilated at 4.2 cm. Mitral valve shows no prolapse. Trace MR. Right-sided chambers are grossly normal. Trace TR. ECHOCARDIOGRAM REPORT [id number] MEHDI RANDALL TRANSINT:[id number] Voice Confirmation ID: [id number] DOCUMENT ID: [id number] DAVID WARREN MD at 1430 CC: [id number] DICTATION DATE: 10/09/20 1633 LOOM FIXER HELPER: 10/09/20 2313 ADM IN [facility] [address] [id number]
--- NOTE | 2020-10-10 19:33 | NUR ---
RECIEVED LAYING IN BED WITH EYES CLOSED AND BIPAP IN PLACE. EASILY AROUSES WITH VERBAL STIMULI. ORIENTED X4. UP AD KEITH TO BR. IV TO RT AC SL. TELEMETRY IN PLACE. DENIES ANY NEEDS AT THIS TIME.
[2020-10-11] VITALS: BP 111/73
[2020-10-11 04:00] VITALS: BP 111/68
[2020-10-11 07:38] LABS: BASOPHILS 0 % (0-2); EOSINOPHILS 0 % (0-7); HEMATOCRIT 53.5 % (42.0-54.0); HEMOGLOBIN 16.3 g/dL (13.5-17.5); IMMATURE GRANULOCYTES 0.3 % (0-5); LYMPHOCYTE ABS# 0.48 10x3/uL (1.32-3.57); LYMPHOCYTES 5.5 % (15-50); MCH 29.7 pg (26.0-34.0); MCHC 30.5 g/dL (31.0-37.0); MCV 97.4 fL (80.0-100.0); MEAN PLATELET VOLUME 11.1 fL (7.4-10.4); MONOCYTES 6.3 % (2-11); NEUTROPHIL ABS# 7.63 10x3/uL (1.78-5.38); NEUTROPHILS 87.9 % (40-80); PLATELET COUNT 204 10x3/uL (130-400); RBC 5.49 10x6/uL (4.20-6.10); RDW 14.5 % (11.5-14.5); WBC 8.7 10x3/uL (4.8-10.8)
[2020-10-11 08:02] LABS: ALBUMIN 3.4 g/dL (3.4-5.0); ANION GAP 9.3 mmol/L (8-16); BILIRUBIN - TOTAL 0.58 mg/dL (0.2-1.3); CALCIUM 8.8 mg/dL (8.5-10.1); CARBON DIOXIDE 38.9 mmol/L (21.0-32.0); CREATININE - SERUM 1.1 mg/dL (0.6-1.3); MAGNESIUM - SERUM 1.8 mg/dL (1.8-2.4); POTASSIUM - SERUM 4.2 mmol/L (3.5-5.1); PROTEIN - SERUM 7.5 g/dL (6.4-8.2)
[2020-10-11 09:48] VITALS: BP 103/69
[2020-10-11] MEDS ORDERED: SINGULAIR10 MG PO (12:20)
[2020-10-11] MEDS ORDERED: GLUCOPHAGE500 MG PO (12:21)
[2020-10-11] MEDS ORDERED: PREDNISONE10 MG PO (12:22)
--- NOTE | 2020-10-11 14:03 | MORECARE ---
CASE MANAGEMENT DISCHARGE SUMMARY PATIENT: MEHDI RANDALL UNIT: [id number] ADM DATE: 10/09/20 AGE: 55 : 65 SEX: M ROOM/BED: D.8521 AUTHOR: ADELAIDA,DOC PHYSICIAN: REFERRING PHYSICIAN: SHERMAN DAVID MD DATE OF SERVICE: 10/11/20 Discharge Plan Patient Name: MEHDI RANDALL Facility: [facility]:[place] : 1965 Planned Disposition: Home Anticipated Discharge Date: Discharge Date: Expected LOS: Initial Reviewer: [email or web address] Initial Review Date: 10/11/2020 Generated: 10/11/20 3:02 pm Comments DCP- Discharge Planning Updated by [id number]: Rehana Fortune on 10/11/20 1:[address] Patient Name: MEHDI RANDALL Admission Status: ER Accout number: [id number] Admission Date: 10-09-2020 : 1965 Admission Diagnosis:SHORTNESS OF BREATH Attending: SHERMAN DAVID Current LOS: 2 Anticipated DC Date: Planned Disposition: Home Primary Insurance: MEDICAID [place] Discharge Planning Comments: CM met with patient to complete initial dc planning assessment. CM educated patient on the CM role and verbal consent given by patient to complete assessment. CM verified patient's address, phone number, and emergency contact phone numbers. Patient lives at home with spouse and 2 children. At discharge patient plans to return and feels this is a safe discharge. CM discussed availability of home health, rehab services, and medical equipment. Patient denied known discharge needs at this time. Transportation provider at discharge will be his spouse. States his is bringing his portable oxygen with her. DME for oxygen supplies is [employer]. CM will continue to follow and will assist as needed with dc plans/needs. Physician Neonatology: Rehana Fortune DCPIA - Discharge Planning Initial Assessment Updated by [email or web address]: Rehana Fortune on 10/11/20 2:00 pm * Is the patient Alert and Oriented? Yes * How many steps to enter\exit or inside your home? 4/0 * PCP Dr. Benito * Pharmacy [facility] * Preadmission Environment Home with Family * ADLs Partial Dependent * Partial ADLs (Assistance needed) Medication Management * Equipment CPAP Other Oxygen * List name and contact numbers for known caregivers / representatives who currently or will assist patient after discharge: Puja terry - [phone] * Verbal permission to speak to the caregivers and representatives has been obtained from the patient. Yes * Community resources currently utilized None * Please name any agencies selected above. [facility] for DME * Additional services required to return to the preadmission environment? No * Can the patient safely return to the preadmission environment? Yes * Has this patient been hospitalized within the prior 30 days at any hospital? No Patient Name: MEHDI RANDALL Page [phone] at 1403 All edits/amendments must be made on the electronic document DICTATION DATE: 10/11/201402 PRODUCT DEVELOPMENT CHEMIST: HARIS 10/11/203 RPT#: [id number] DC DATE: STATUS: ADM IN [facility] [address] [place] [address] END OF REPORT
--- NOTE | 2020-10-11 14:36 | NUR ---
NURSE GIVES PATIENT DC INSTRUCTIONS AT THIS TIME. NURSE REMOVES IV WITH CATH TIP INTACT. PATIENT DENIES QUESTIONS OR CONCERNS. PATIENT WAITING FOR RIDE TO TAKE HIM HOME.
--- NOTE | 2020-10-11 14:38 | NUR ---
PATIENT GIVEN HOME MEDS BACK AND THEN PATIENT WHEELED OUT AT THIS TIME
--- NOTE | 2020-10-12 09:22 | MORECARE ---
CASE MANAGEMENT DISCHARGE SUMMARY PATIENT: MEHDI RANDALL UNIT: [id number] ADM DATE: 10/09/20 AGE: 55 : 65 SEX: M ROOM/BED: D.0783 AUTHOR: ADELAIDA,DOC PHYSICIAN: REFERRING PHYSICIAN: SHERMAN DAVID MD DATE OF SERVICE: 10/12/20 Discharge Plan Patient Name: MEHDI RANDALL Facility: [facility]:[place] : 1965 Planned Disposition: Home Anticipated Discharge Date: Discharge Date: 10/11/2020 Expected LOS: Initial Reviewer: [email or web address] Initial Review Date: 10/11/2020 Generated: 10/12/20 10:21 am Comments DCP- Discharge Planning Updated by [email or web address]: Rehana Fortune on 10/11/20 1:[address] Patient Name: MEHDI RANDALL Admission Status: ER Accout number: [id number] Admission Date: 10-09-2020 : 1965 Admission Diagnosis:SHORTNESS OF BREATH Attending: SHERMAN DAVID Current LOS: 2 Anticipated DC Date: Planned Disposition: Home Primary Insurance: MEDICAID [place] Discharge Planning Comments: CM met with patient to complete initial dc planning assessment. CM educated patient on the CM role and verbal consent given by patient to complete assessment. CM verified patient's address, phone number, and emergency contact phone numbers. Patient lives at home with spouse and 2 children. At discharge patient plans to return and feels this is a safe discharge. CM discussed availability of home health, rehab services, and medical equipment. Patient denied known discharge needs at this time. Transportation provider at discharge will be his spouse. States his is bringing his portable oxygen with her. DME for oxygen supplies is [employer]. CM will continue to follow and will assist as needed with dc plans/needs. Scuba Instructor: Rehana Fortune DCPIA - Discharge Planning Initial Assessment Updated by [email or web address]: Rehana Fortune on 10/11/20 2:00 pm * Is the patient Alert and Oriented? Yes * How many steps to enter\exit or inside your home? 4/0 * PCP Dr. Benito * Pharmacy [facility] * Preadmission Environment Home with Family * ADLs Partial Dependent * Partial ADLs (Assistance needed) Medication Management * Equipment CPAP Other Oxygen * List name and contact numbers for known caregivers / representatives who currently or will assist patient after discharge: Puja terry - [phone] * Verbal permission to speak to the caregivers and representatives has been obtained from the patient. Yes * Community resources currently utilized None * Please name any agencies selected above. [facility] for DME * Additional services required to return to the preadmission environment? No * Can the patient safely return to the preadmission environment? Yes * Has this patient been hospitalized within the prior 30 days at any hospital? No Last DP export: 10/11/20 1:03 p Patient Name: MEHDI RANDALL Page 37515 at 0922 All edits/amendments must be made on the electronic document DICTATION DATE: 10/12/20921 ROSE GRADER: HARIS 10/12/20921 RPT#: [id number] DC DATE:10/11/20 STATUS: DIS IN [facility] [address] [place] [address] END OF REPORT
== END 2020-10-11 16:13 | disposition home or self-care (01) | DRG 190 ==
LOC: D.ER 00:28 → D.EDHOLD 01:48 → D.M2 01:48
PROVIDERS: Emergency Medicine; Family Medicine; ADMIT Emergency Medicine; ATTEND Emergency Medicine
PROC: 5A09457 Assistance with Respiratory Ventilation, 24-96 Consecutive Hours, Continuous Positive Airway Pressure (ICD-10-PCS; principal; 2020-10-09)
DX: J44.1 Chronic obstructive pulmonary disease with (acute) exacerbation (principal); J96.01 Acute respiratory failure with hypoxia; J96.12 Chronic respiratory failure with hypercapnia; E11.9 Type 2 diabetes mellitus without complications; I25.10 Atherosclerotic heart disease of native coronary artery without angina pectoris; J45.991 Cough variant asthma; G47.33 Obstructive sleep apnea (adult) (pediatric); I11.0 Hypertensive heart disease with heart failure; I50.9 Heart failure, unspecified

== ENCOUNTER 2020-10-23 10:04 | Inpatient (IN) | payer MEDICAID ==
[~2020-10-23] VITALS: Ht 180.3 cm; Wt 137.9 kg
[2020-10-23 10:58] LABS: BASOPHILS 0.2 % (0-2); EOSINOPHILS 1.5 % (0-7); HEMATOCRIT 50.3 % (42.0-54.0); HEMOGLOBIN 15.3 g/dL (13.5-17.5); IMMATURE GRANULOCYTES 0.4 % (0-5); LYMPHOCYTE ABS# 0.82 10x3/uL (1.32-3.57); LYMPHOCYTES 6.3 % (15-50); MCH 29.5 pg (26.0-34.0); MCHC 30.4 g/dL (31.0-37.0); MCV 97.1 fL (80.0-100.0); MEAN PLATELET VOLUME 10.4 fL (7.4-10.4); MONOCYTES 7.4 % (2-11); NEUTROPHIL ABS# 11.01 10x3/uL (1.78-5.38); NEUTROPHILS 84.2 % (40-80); PLATELET COUNT 189 10x3/uL (130-400); RBC 5.18 10x6/uL (4.20-6.10); RDW 14.4 % (11.5-14.5); WBC 13.1 10x3/uL (4.8-10.8)
[2020-10-23 11:05] LABS: CALC OSMOLALITY 287 mosm/kg (275-300); CALCIUM 8.4 mg/dL (8.5-10.1); CARBON DIOXIDE 37.6 mmol/L (21.0-32.0); CHLORIDE - SERUM 97 mmol/L (98-107); CREATININE - SERUM 0.8 mg/dL (0.6-1.3); GLUCOSE 288 mg/dL (74-106); POTASSIUM - SERUM 4.1 mmol/L (3.5-5.1); SODIUM 138 mmol/L (136-145); UREA NITROGEN 14 mg/dL (7-18); eGFR NON AFRICAN AMERICAN > 90 mL/min (90-120)
[2020-10-23 11:12] LABS: INR 1.19 (0.85-1.17)
[2020-10-23 11:13] LABS: APTT 34.6 SECONDS (22.8-39.4)
[2020-10-23 11:21] LABS: ALBUMIN 3.3 g/dL (3.4-5.0); ALKALINE PHOSPHATASE 48 U/L (30-120); ALT (SGPT) 33 U/L (10-68); BILIRUBIN - TOTAL 0.68 mg/dL (0.2-1.3); CKMB 2.6 U/L (0.0-3.6); CREATINE KINASE 63 UL (21-232); PRO BNP 399 pg/mL (0-125); PROTEIN - SERUM 6.3 g/dL (6.4-8.2); TROPONIN-I 0.023 ng/mL (0.000-0.060)
[2020-10-23 11:30] VITALS: BP 97/49
[2020-10-23 13:00] VITALS: BP 103/56
[2020-10-23 14:25] VITALS: BP 115/69
--- NOTE | 2020-10-23 14:35 | NUR ---
RECEIVED PATIENT FROM ER VIA WHEELCHAIR. PATIENT HAS 02 ON BUT IMMEDIATELY GOES ON BIPAP WHEN GETS INTO ROOM. NURSE PLACES PATIENT'S SCDS ON. PLAN OF CARE REVIEWED AND ASSESSMENT HAS BEEN COMPLETED AT THIS TIME. NURSE CALLS MONITOR TECHS FOR TELE BOX. PATIENT IS STABLE AT THIS TIME.
[2020-10-23 14:53] VITALS: BP 115/59; BMI 42.5
[2020-10-23 16:31] LABS: BILIRUBIN NEGATIVE (NEGATIVE); KETONE NEGATIVE (NEGATIVE); NITRITE NEGATIVE (NEGATIVE); UROBILINOGEN NORMAL mg/dL (< 2)
--- NOTE | 2020-10-23 16:31 | NUR ---
NURSE COMPLETES EKG AT THIS TIME
[2020-10-23 16:42] LABS: CKMB 3.2 U/L (0.0-3.6); CREATINE KINASE 76 UL (21-232); TROPONIN-I 0.037 ng/mL (0.000-0.060)
[2020-10-23 20:00] VITALS: BP 96/45
--- NOTE | 2020-10-23 21:00 | NUR ---
PT AMBULATED TO BR, SCDS REPLACED TO BILAT LE. LEWIS REPORTS IMPROVED WITH O2 O2 SAT 96 %
--- NOTE | 2020-10-23 22:30 | NUR ---
scds on bilat, denies needs will continue to monitor
--- NOTE | 2020-10-23 22:51 | NUR ---
EKG OBTAINED PER ORDERS. PT RESTING IN BED BIPAP ON DENIES ANY ISSUES AT THSI TIME. WILL CONTINUE TO MONITOR
[2020-10-24 00:07] LABS: CKMB 2.6 U/L (0.0-3.6); CREATINE KINASE 68 UL (21-232)
[2020-10-24 00:08] LABS: TROPONIN-I < 0.017 ng/mL (0.000-0.060)
--- NOTE | 2020-10-24 01:03 | NUR ---
scds on bilat, resting quietly appears asleep will continue to monitor
[2020-10-24 04:00] VITALS: BP 103/49
--- NOTE | 2020-10-24 06:04 | NUR ---
fsbs 266 10 units humalog givwn per orders snack provided. pt denies any needs will continue to monitor
[2020-10-24 06:28] LABS: BASOPHILS 0 % (0-2); EOSINOPHILS 0 % (0-7); HEMATOCRIT 49.9 % (42.0-54.0); HEMOGLOBIN 15.5 g/dL (13.5-17.5); IMMATURE GRANULOCYTES 0.3 % (0-5); LYMPHOCYTE ABS# 0.49 10x3/uL (1.32-3.57); MCH 29.6 pg (26.0-34.0); MCHC 31.1 g/dL (31.0-37.0); MCV 95.4 fL (80.0-100.0); MEAN PLATELET VOLUME 10.8 fL (7.4-10.4); MONOCYTES 1.6 % (2-11); NEUTROPHIL ABS# 11.43 10x3/uL (1.78-5.38); NEUTROPHILS 94.1 % (40-80); PLATELET COUNT 192 10x3/uL (130-400); RBC 5.23 10x6/uL (4.20-6.10); RDW 14.1 % (11.5-14.5); WBC 12.2 10x3/uL (4.8-10.8)
[2020-10-24 06:32] LABS: CALC OSMOLALITY 280 mosm/kg (275-300); CALCIUM 8.7 mg/dL (8.5-10.1); CHLORIDE - SERUM 94 mmol/L (98-107); CKMB 2.1 U/L (0.0-3.6); CREATINE KINASE 58 UL (21-232); CREATININE - SERUM 0.9 mg/dL (0.6-1.3); GLUCOSE 292 mg/dL (74-106); POTASSIUM - SERUM 4.4 mmol/L (3.5-5.1); SODIUM 133 mmol/L (136-145); TROPONIN-I < 0.017 ng/mL (0.000-0.060); eGFR NON AFRICAN AMERICAN > 90 mL/min (90-120)
[2020-10-24 06:34] LABS: UREA NITROGEN 23 mg/dL (7-18)
--- NOTE | 2020-10-24 07:15 | NUR ---
RECEIVE SHIFT REPORT. RESTING IN BED WITH EYES CLOSED. BIPAP ON. CALL LIGHT IN REACH. NO S/S OF DISTRESS PRESENT AT THIS TIME. WILL CONTINUE POC AND SAFETY PRECAUTIONS.
[2020-10-24 08:00] VITALS: BP 102/62
[2020-10-24 11:00] VITALS: BP 120/62
[2020-10-24 12:43] VITALS: Ht 180.3 cm; Wt 137.9 kg
--- NOTE | 2020-10-24 16:30 | NUR ---
FSBS 537, 20 UNITS HUMALOG GIVEN. [facility] CALLED NO ANSWER. WILL TRY TO CALL AGAIN.
[2020-10-24 20:00] VITALS: BP 109/55
--- NOTE | 2020-10-24 22:48 | NUR ---
PTS BS WAS TO HIGH FOR ACCUCHEK TO READ. STAT BS READ 595. REPORTED TO MILO HAGER. NO NEW ORDERS GIVEN. ADMIN INSULIN ORDERED IN EMAR. 28 U OF HUMALOG AND 10 U OF LANTUS. PT STABLE. NO S/S OF DISTRESS. RR EVEN AND UNLABORED. WILL CONT TO MONITOR.
[2020-10-25] VITALS: BP 100/59
--- NOTE | 2020-10-25 01:57 | NUR ---
I have reviewed this patient and I concur with the Shift Assessment completed by the Licensed Practical Nurse today this shift.
[2020-10-25 04:00] VITALS: BP 117/75
[2020-10-25 08:00] VITALS: BP 108/53
[2020-10-25 10:30] LABS: BASOPHILS 0 % (0-2); EOSINOPHILS 0 % (0-7); HEMATOCRIT 49.1 % (42.0-54.0); HEMOGLOBIN 15.1 g/dL (13.5-17.5); IMMATURE GRANULOCYTES 0.3 % (0-5); LYMPHOCYTE ABS# 0.58 10x3/uL (1.32-3.57); LYMPHOCYTES 4.7 % (15-50); MCH 29.4 pg (26.0-34.0); MCHC 30.8 g/dL (31.0-37.0); MCV 95.7 fL (80.0-100.0); MEAN PLATELET VOLUME 10.8 fL (7.4-10.4); MONOCYTES 2.1 % (2-11); NEUTROPHIL ABS# 11.53 10x3/uL (1.78-5.38); NEUTROPHILS 92.9 % (40-80); PLATELET COUNT 155 10x3/uL (130-400); RBC 5.13 10x6/uL (4.20-6.10); RDW 14.2 % (11.5-14.5); WBC 12.4 10x3/uL (4.8-10.8)
[2020-10-25 10:41] LABS: CALC OSMOLALITY 287 mosm/kg (275-300); CALCIUM 8.2 mg/dL (8.5-10.1); CHLORIDE - SERUM 98 mmol/L (98-107); GLUCOSE 388 mg/dL (74-106); POTASSIUM - SERUM 5.3 mmol/L (3.5-5.1); SODIUM 134 mmol/L (136-145); UREA NITROGEN 24 mg/dL (7-18); eGFR NON AFRICAN AMERICAN 82 mL/min (90-120)
[2020-10-25 10:51] LABS: ALBUMIN 3.1 g/dL (3.4-5.0); ALKALINE PHOSPHATASE 49 U/L (30-120); ALT (SGPT) 30 U/L (10-68); BILIRUBIN - TOTAL 0.36 mg/dL (0.2-1.3); PROTEIN - SERUM 6.2 g/dL (6.4-8.2)
[2020-10-25 15:00] VITALS: BP 124/60
--- NOTE | 2020-10-25 15:21 | NUR ---
I have reviewed this patient and I concur with the Shift Assessment completed by the Licensed Practical Nurse today this shift.
--- NOTE | 2020-10-25 17:38 | NUR ---
LEFT HAND IV INFILTRATED, NEW IV (22 GAUGE) WAS PLACED IN RIGHT FOREARM, PATENT AND SALINE LOCKED AFTER ROCEPHIN ANTIBOTIC WAS INFUSED WITHOUT DIFFICULTY
--- NOTE | 2020-10-25 17:40 | MORECARE ---
CASE MANAGEMENT DISCHARGE SUMMARY PATIENT: MEHDI RANDALL UNIT: [id number] ADM DATE: 10/23/20 AGE: 55 : 65 SEX: M ROOM/BED: D.2136 AUTHOR: LINDSAY SON PHYSICIAN: REFERRING PHYSICIAN: YVETTE BRADEN MD DATE OF SERVICE: 10/25/20 Discharge Plan Patient Name: MEHDI RANDALL Facility: [facility]:[place] : 1965 Planned Disposition: Home Anticipated Discharge Date: Discharge Date: Expected LOS: Initial Reviewer: [email or web address] Initial Review Date: 10/25/2020 Generated: 10/25/20 6:40 pm External Providers [facility] Next Contact Date: Service Request Date: Service Type: Resolution: Reviewer: Comments: Patient Name: MEHDI RANDALL Page [phone] at 1740 All edits/amendments must be made on the electronic document DICTATION DATE: 10/25/201739 WEB PRESS ROLL TENDER: HARIS 10/25/201739 RPT#: [id number] DC DATE: STATUS: ADM IN [facility] [address] [place] [address] END OF REPORT
--- NOTE | 2020-10-25 17:48 | MORECARE ---
CASE MANAGEMENT DISCHARGE SUMMARY PATIENT: MEHDI RANDALL UNIT: [id number] ADM DATE: 10/23/20 AGE: 55 : 65 SEX: M ROOM/BED: D.2136 AUTHOR: LINDSAY SON PHYSICIAN: REFERRING PHYSICIAN: YVETTE BRADEN MD DATE OF SERVICE: 10/25/20 Discharge Plan Patient Name: MEHDI RANDALL Facility: [facility]:[place] : 1965 Planned Disposition: Home Anticipated Discharge Date: Discharge Date: Expected LOS: Initial Reviewer: [email or web address] Initial Review Date: 10/25/2020 Generated: 10/25/20 6:48 pm DCPIA - Discharge Planning Initial Assessment Updated by [email or web address]: Rehana Fortune on 10/25/20 5:41 pm * Is the patient Alert and Oriented? Yes * How many steps to enter\exit or inside your home? 4/0 * PCP Dr. Benito * Pharmacy [facility] * Preadmission Environment Home with Family * ADLs Partial Dependent * Partial ADLs (Assistance needed) Medication Management * Equipment CPAP Nebulizer Other Oxygen * Other Equipment Portable oxygen pulse oximeter * List name and contact numbers for known caregivers / representatives who currently or will assist patient after discharge: Puja [facility] - [phone] * Verbal permission to speak to the caregivers and representatives has been obtained from the patient. Yes * Community resources currently utilized None * Additional services required to return to the preadmission environment? Yes * Can the patient safely return to the preadmission environment? Yes * Has this patient been hospitalized within the prior 30 days at any hospital? Yes Last DP export: 10/25/20 4:40 p Patient Name: MEHDI RANDALL Page [phone] at 7351 All edits/amendments must be made on the electronic document DICTATION DATE: 10/25/201747 GATE AGENT: HARIS 10/25/201747 RPT#: [id number] DC DATE: STATUS: ADM IN [facility] [address] [place] [address] END OF REPORT
--- NOTE | 2020-10-25 17:56 | MORECARE ---
CASE MANAGEMENT DISCHARGE SUMMARY PATIENT: MEHDI RANDALL UNIT: [id number] ADM DATE: 10/23/20 AGE: 55 : 65 SEX: M ROOM/BED: D.5606 AUTHOR: ADELAIDADOC PHYSICIAN: REFERRING PHYSICIAN: YVETTE BRADEN MD DATE OF SERVICE: 10/25/20 Discharge Plan Patient Name: MEHDI RANDALL Facility: [facility]:[place] : 1965 Planned Disposition: Home Anticipated Discharge Date: Discharge Date: Expected LOS: Initial Reviewer: [email or web address] Initial Review Date: 10/25/2020 Generated: 10/25/20 6:56 pm Comments DCP- Discharge Planning Updated by [email or web address]: Rehana Fortune on 10/25/20 4:[address] Patient Name: MEHDI RANDALL Admission Status: ER Accout number: [id number] Admission Date: 10-23-2020 : 1965 Admission Diagnosis:SHORTNESS OF BREATH Attending: YVETTE IRVING Current LOS: 2 Anticipated DC Date: Planned Disposition: Home Primary Insurance: MEDICAID [place] DC PLAN: ANTICIPATED DC NEEDS: CM met with patient to complete initial dc planning assessment. CM educated patient on the CM role and verbal consent given by patient to complete assessment. CM verified patient's address, phone number, and emergency contact phone numbers. Patient lives at home with his spouse and children. At discharge patient plans to return and feels this is a safe discharge. CM discussed availability of home health, rehab services, and medical equipment. Patient denied known discharge needs at this time. I asked him about filling his prescriptions. He states he is using all of his Medicaid slots, but did private pay for the prednisone and could not afford the inhaler. He is unsure if he purchased the gluophage. I called Dr. Benito's office and he is at the maximum slots allowed and cannot add any more slots. I provided the patient with a Good RX card and the coupons to get his medications filled through [facility]. I also told him to check the [employer] [address] Calix informed me that patient needs a trilogy. The patient wishes to use [facility]. I called and spoke to Melita and clinical and order faxed. Patient states he was unsure if his oxygen tubing was working correctly and I informed Melita of this. She states that his water bottle was interfering with the connection and they have it working correctly now. Melita states that Medicaid requires authorization for the Trilogy and will notify us when they have auth. Transportation provider at discharge will be his spouse. CM will continue to follow and will assist as needed with dc plans/needs. Gluer And Wedger: Rehana Fortune DCPIA - Discharge Planning Initial Assessment Updated by [id number]: Rehana Fortune on 10/25/20 5:41 pm * Is the patient Alert and Oriented? Yes * How many steps to enter\exit or inside your home? 4/0 * PCP Dr. Benito * Pharmacy [facility] * Preadmission Environment Home with Family * ADLs Partial Dependent * Partial ADLs (Assistance needed) Medication Management * Equipment CPAP Nebulizer Other Oxygen * Other Equipment Portable oxygen pulse oximeter * List name and contact numbers for known caregivers / representatives who currently or will assist patient after discharge: Puja - spouse - [phone] * Verbal permission to speak to the caregivers and representatives has been obtained from the patient. Yes * Community resources currently utilized None * Additional services required to return to the preadmission environment? Yes * Can the patient safely return to the preadmission environment? Yes * Has this patient been hospitalized within the prior 30 days at any hospital? Yes Coverage Notice Reviewer: [id number] - Rehana Fortune Notice Issued Date-Time: 10/25/2020 13:30 Notice Type: Patient Choice Letter Notice Delivered To: Patient Relationship to Patient: Self Call Center Coordinator Name: Delivery Method: HAND - Hand Delivered Naomi Days: Prior Verbal Notification: Recipient Understood Notice: Yes Recipient Signature: Yes Med Rec Note Co-signed by Attending: Coverage Notice Comment: [facility] Last DP export: 10/25/20 4:49 p Patient Name: MEHDI RANDALL Page 45921 at 8310 All edits/amendments must be made on the electronic document DICTATION DATE: 10/25/20 9171 HOME HEALTH CLINICAL SUPERVISOR: DM 10/25/20 1756 RPT#: [id number] DC DATE: STATUS: ADM IN [facility] [address] [place] [address] END OF REPORT
--- NOTE | 2020-10-25 18:15 | NUR ---
PT BLOOD SUGAR WAS 391 AT 1130 AND RECEIVED 24 UNITS AT THAT TIME. PT BLOOD SUGAR WAS 366 AT 1630 AND RECEIVED 24 UNITS AT THAT TIME. PT WAS EATING SUBWAY THAT HIS BROUGHT HIM FROM THE OUTSIDE DINNING FACILITY AT THIS TIME.
[2020-10-25 20:00] VITALS: BP 112/63
--- NOTE | 2020-10-25 20:00 | NUR ---
REPORT RECEIVED WILL CONT POC. PT SITTING ON SIDE OF BED. A&O. NO S/S OF DISTRESS OBSERVED. RR EVEN AND UNLABORED ON BIPAP, 7L HF WHEN NOT ON BIPAP. CL IN REACH. BED LOCKED AND LOWERED. ASSESSMENT COMPLETED AT THIS TIME. WILL CONT TO MONITOR.
[2020-10-26 04:00] VITALS: BP 129/81
[2020-10-26 06:01] LABS: BASOPHILS 0 % (0-2); EOSINOPHILS 0 % (0-7); HEMATOCRIT 47.7 % (42.0-54.0); HEMOGLOBIN 14.5 g/dL (13.5-17.5); IMMATURE GRANULOCYTES 0.5 % (0-5); LYMPHOCYTE ABS# 0.36 10x3/uL (1.32-3.57); LYMPHOCYTES 4.1 % (15-50); MCH 29.6 pg (26.0-34.0); MCHC 30.4 g/dL (31.0-37.0); MCV 97.3 fL (80.0-100.0); MEAN PLATELET VOLUME 10.8 fL (7.4-10.4); NEUTROPHIL ABS# 8.32 10x3/uL (1.78-5.38); NEUTROPHILS 94.4 % (40-80); PLATELET COUNT 153 10x3/uL (130-400); RDW 14.2 % (11.5-14.5)
[2020-10-26 06:07] LABS: WBC 8.8 10x3/uL (4.8-10.8)
[2020-10-26 06:34] LABS: BILIRUBIN - TOTAL 0.22 mg/dL (0.2-1.3); CALCIUM 8.2 mg/dL (8.5-10.1); CREATININE - SERUM 1.1 mg/dL (0.6-1.3); MAGNESIUM - SERUM 2.2 mg/dL (1.8-2.4); PROTEIN - SERUM 6.4 g/dL (6.4-8.2)
[2020-10-26 06:39] LABS: ANION GAP 5.5 mmol/L (8-16); POTASSIUM - SERUM 4.5 mmol/L (3.5-5.1)
[2020-10-26 08:27] VITALS: BP 159/48
[2020-10-26 12:24] VITALS: BP 120/65
--- NOTE | 2020-10-26 12:49 | NUR ---
Nutrition Follow-up: Eating well. Glu elevated. Receiving steroids. Also receiving food from outside facility. Noted Lantus increased. Diet: Cardiac, Carb Consistent PO intake: 100% x 3 yesterday No new wt; last wt: 304# (10/24) Labs noted: Na 131, Glu 520, Ca 8.2, Alb 3.0 Meds noted: Humalog, Lantus, Solumedrol, Protonix, electrolyte protocol -RD will follow up within 7 days if pt still admitted.
[2020-10-26 17:01] VITALS: BP 124/78
[2020-10-26 19:27] VITALS: BP 115/69
[2020-10-27 04:02] VITALS: BP 114/77
[2020-10-27 05:40] LABS: BASOPHILS 0 % (0-2); EOSINOPHILS 0 % (0-7); HEMATOCRIT 48.2 % (42.0-54.0); HEMOGLOBIN 14.7 g/dL (13.5-17.5); IMMATURE GRANULOCYTES 0.3 % (0-5); LYMPHOCYTE ABS# 0.31 10x3/uL (1.32-3.57); LYMPHOCYTES 4.1 % (15-50); MCH 29.5 pg (26.0-34.0); MCHC 30.5 g/dL (31.0-37.0); MCV 96.6 fL (80.0-100.0); MEAN PLATELET VOLUME 11.6 fL (7.4-10.4); MONOCYTES 4.3 % (2-11); NEUTROPHIL ABS# 6.98 10x3/uL (1.78-5.38); NEUTROPHILS 91.3 % (40-80); PLATELET COUNT 140 10x3/uL (130-400); RBC 4.99 10x6/uL (4.20-6.10); RDW 14.2 % (11.5-14.5); WBC 7.6 10x3/uL (4.8-10.8)
[2020-10-27 06:08] LABS: ALBUMIN 3.1 g/dL (3.4-5.0); ALKALINE PHOSPHATASE 45 U/L (30-120); ALT (SGPT) 27 U/L (10-68); BILIRUBIN - TOTAL 0.41 mg/dL (0.2-1.3); CALCIUM 8.2 mg/dL (8.5-10.1); CHLORIDE - SERUM 96 mmol/L (98-107); MAGNESIUM - SERUM 2.3 mg/dL (1.8-2.4); PROTEIN - SERUM 6.4 g/dL (6.4-8.2); SODIUM 135 mmol/L (136-145); UREA NITROGEN 24 mg/dL (7-18); eGFR NON AFRICAN AMERICAN 82 mL/min (90-120)
[2020-10-27 06:10] LABS: CALC OSMOLALITY 292 mosm/kg (275-300); GLUCOSE 449 mg/dL (74-106)
[2020-10-27 08:50] VITALS: BP 111/67
--- NOTE | 2020-10-27 11:32 | MORECARE ---
CASE MANAGEMENT DISCHARGE SUMMARY PATIENT: MEHDI RANDALL UNIT: [id number] ADM DATE: 10/23/20 AGE: 55 : 65 SEX: M ROOM/BED: D.2136 AUTHOR: ADELAIDADOC PHYSICIAN: REFERRING PHYSICIAN: YVETTE BRADEN MD DATE OF SERVICE: 10/27/20 Discharge Plan Patient Name: MEHDI RANDALL Facility: [facility]:[place] : 1965 Planned Disposition: Home Anticipated Discharge Date: Discharge Date: Expected LOS: Initial Reviewer: [email or web address] Initial Review Date: 10/25/2020 Generated: 10/27/20 12:31 pm Comments DCP- Discharge Planning Updated by [email or web address]: Rehana Fortune on 10/27/20 10:[address] CM called [facility] and spoke with Maral. Maral states with Medicaid insurance, the PCP needs to sign some paper work that she has faxed to Dr. Cunningham's office on the and and has not received it back yet. I called Dr. Cunningham's office and spoke with Anshul. Anshul states they have received the fax, he will get signature and fax to [facility] today. I have asked Melita russo [facility] to call me about the trilogy. CM will continue to follow and assist with discharge planning/needs. DCP- Discharge Planning Updated by [email or web address]: Rehana Fortune on 10/25/20 4:[address] Patient Name: MEHDI RANDALL Admission Status: ER Accout number: [id number] Admission Date: 10-23-2020 : 1965 Admission Diagnosis:SHORTNESS OF BREATH Attending: YVETTE IRVING Current LOS: 2 Anticipated DC Date: Planned Disposition: Home Primary Insurance: MEDICAID [place] DC PLAN: ANTICIPATED DC NEEDS: CM met with patient to complete initial dc planning assessment. CM educated patient on the CM role and verbal consent given by patient to complete assessment. CM verified patient's address, phone number, and emergency contact phone numbers. Patient lives at home with his spouse and children. At discharge patient plans to return and feels this is a safe discharge. CM discussed availability of home health, rehab services, and medical equipment. Patient denied known discharge needs at this time. I asked him about filling his prescriptions. He states he is using all of his Medicaid slots, but did private pay for the prednisone and could not afford the inhaler. He is unsure if he purchased the gluophage. I called Dr. Benito's office and he is at the maximum slots allowed and cannot add any more slots. I provided the patient with a [facility] RX card and the coupons to get his medications filled through [facility]. I also told him to check the [employer] [address] Calix informed me that patient needs a trilogy. The patient wishes to use [employer]. I called and spoke to Melita and clinical and order faxed. Patient states he was unsure if his oxygen tubing was working correctly and I informed Melita of this. She states that his water bottle was interfering with the connection and they have it working correctly now. Melita states that Medicaid requires authorization for the Trilogy and will notify us when they have auth. Transportation provider at discharge will be his spouse. CM will continue to follow and will assist as needed with dc plans/needs. Dispensing Optician: Rehana Fortune DCPIA - Discharge Planning Initial Assessment Updated by [id number]: Rehana Fortune on 10/25/20 5:41 pm * Is the patient Alert and Oriented? Yes * How many steps to enter\exit or inside your home? 4/0 * PCP Dr. Benito * Pharmacy [facility] * Preadmission Environment Home with Family * ADLs Partial Dependent * Partial ADLs (Assistance needed) Medication Management * Equipment CPAP Nebulizer Other Oxygen * Other Equipment Portable oxygen pulse oximeter * List name and contact numbers for known caregivers / representatives who currently or will assist patient after discharge: Puja - spouse - [phone] * Verbal permission to speak to the caregivers and representatives has been obtained from the patient. Yes * Community resources currently utilized None * Additional services required to return to the preadmission environment? Yes * Can the patient safely return to the preadmission environment? Yes * Has this patient been hospitalized within the prior 30 days at any hospital? Yes Coverage Notice Reviewer: [id number] - Rehana Fortune Notice Issued Date-Time: 10/25/2020 13:30 Notice Type: Patient Choice Letter Notice Delivered To: Patient Relationship to Patient: Self Procurement Services Manager Name: Delivery Method: HAND - Hand Delivered Naomi Days: Prior Verbal Notification: Recipient Understood Notice: Yes Recipient Signature: Yes Med Rec Note Co-signed by Attending: Coverage Notice Comment: [facility] Last DP export: 10/25/20 4:56 p Patient Name: MEHDI RANDALL Page [id number] at 1132 All edits/amendments must be made on the electronic document DICTATION DATE: 10/27/20 1131 PROCUREMENT PROFESSIONAL: HARIS 10/27/20 1131 RPT#: [id number] DC DATE: STATUS: ADM IN [facility] [address] [place] [address] END OF REPORT
[2020-10-27 13:24] VITALS: BP 115/64
[2020-10-27] MEDS ORDERED: OMNICEF300 MG PO (14:21)
[2020-10-27] MEDS ORDERED: ZITHROMAX500 MG PO (14:21)
--- NOTE | 2020-10-27 14:40 | MORECARE ---
CASE MANAGEMENT DISCHARGE SUMMARY PATIENT: MEHDI RANDALL UNIT: [id number] ADM DATE: 10/23/20 AGE: 55 : 65 SEX: M ROOM/BED: D.1736 AUTHOR: ADELAIDA,DOC PHYSICIAN: REFERRING PHYSICIAN: YVETTE BRADEN MD DATE OF SERVICE: 10/27/20 Discharge Plan Patient Name: MEHDI RANDALL Facility: [facility]:[place] : 1965 Planned Disposition: Home Anticipated Discharge Date: Discharge Date: Expected LOS: Initial Reviewer: [email or web address] Initial Review Date: 10/25/2020 Generated: 10/27/20 3:39 pm Comments DCP- Discharge Planning Updated by [email or web address]: Rehana Fortune on 10/27/20 1:[address] Calix here. Dr. Calix states he does not need to stay until he has his trilogy here. I informed him with Medicaid it can take at least 2 weeks for approval. I faxed signed DWO to [employer]. I spoke with patient and he would like assistance with his singulair. I called [employer] [facility] and orders received. New Rx [facility]. He states he has all his other medications. [employer] is bringing a portable tank to the room per patient request. Home today. DCP- Discharge Planning Updated by [id number]: Rehana Fortune on 10/27/20 10:[address] CM called [employer] and spoke with Maral. Maral states with Medicaid insurance, the PCP needs to sign some paper work that she has faxed to Dr. Cunningham's office on the and and has not received it back yet. I called Dr. Cunningham's office and spoke with Anshul. Anshul states they have received the fax, he will get signature and fax to [employer] today. I have asked Melita russo [facility] ([place]) to call me about the trilogy. CM will continue to follow and assist with discharge planning/needs. DCP- Discharge Planning Updated by [email or web address]: Rehana Fortune on 10/25/20 4:[address] Patient Name: MEHDI RANDALL Admission Status: ER Accout number: [id number] Admission Date: 10-23-2020 : 1965 Admission Diagnosis:SHORTNESS OF BREATH Attending: YVETTE IRVING Current LOS: 2 Anticipated DC Date: Planned Disposition: Home Primary Insurance: MEDICAID [place] DC PLAN: ANTICIPATED DC NEEDS: CM met with patient to complete initial dc planning assessment. CM educated patient on the CM role and verbal consent given by patient to complete assessment. CM verified patient's address, phone number, and emergency contact phone numbers. Patient lives at home with his spouse and children. At discharge patient plans to return and feels this is a safe discharge. CM discussed availability of home health, rehab services, and medical equipment. Patient denied known discharge needs at this time. I asked him about filling his prescriptions. He states he is using all of his Medicaid slots, but did private pay for the prednisone and could not afford the inhaler. He is unsure if he purchased the gluophage. I called Dr. Benito's office and he is at the maximum slots allowed and cannot add any more slots. I provided the patient with a Good RX card and the coupons to get his medications filled through Good Rx. I also told him to check the [employer] [address] Calix informed me that patient needs a trilogy. The patient wishes to use [employer]. I called and spoke to Melita and clinical and order faxed. Patient states he was unsure if his oxygen tubing was working correctly and I informed Melita of this. She states that his water bottle was interfering with the connection and they have it working correctly now. Melita states that Medicaid requires authorization for the Trilogy and will notify us when they have auth. Transportation provider at discharge will be his spouse. CM will continue to follow and will assist as needed with dc plans/needs. French Cord Binder: Rehana Fortune DCPIA - Discharge Planning Initial Assessment Updated by [id number]: Rehana Fortune on 10/25/20 5:41 pm * Is the patient Alert and Oriented? Yes * How many steps to enter\exit or inside your home? 4/0 * PCP Dr. Benito * Pharmacy [facility] * Preadmission Environment Home with Family * ADLs Partial Dependent * Partial ADLs (Assistance needed) Medication Management * Equipment CPAP Nebulizer Other Oxygen * Other Equipment Portable oxygen pulse oximeter * List name and contact numbers for known caregivers / representatives who currently or will assist patient after discharge: Puja terry - [phone] * Verbal permission to speak to the caregivers and representatives has been obtained from the patient. Yes * Community resources currently utilized None * Additional services required to return to the preadmission environment? Yes * Can the patient safely return to the preadmission environment? Yes * Has this patient been hospitalized within the prior 30 days at any hospital? Yes Coverage Notice Reviewer: [id number] Elena Fortune Notice Issued Date-Time: 10/25/2020 13:30 Notice Type: Patient Choice Letter Notice Delivered To: Patient Relationship to Patient: Self Credit Card Clerk Name: Delivery Method: HAND - Hand Delivered Naomi Days: Prior Verbal Notification: Recipient Understood Notice: Yes Recipient Signature: Yes Med Rec Note Co-signed by Attending: Coverage Notice Comment: [facility] DP export: 10/27/20 10:32 a Patient Name: MEHDI RANDALL Page [id number] at 1440 All edits/amendments must be made on the electronic document DICTATION DATE: 10/27/201438 REPRODUCTION PRODUCTION MANAGER: HARIS 10/27/201438 RPT#: [id number] DC DATE: STATUS: ADM IN [facility] [address] [place] [address] END OF REPORT
--- NOTE | 2020-10-27 15:32 | MORECARE ---
CASE MANAGEMENT DISCHARGE SUMMARY PATIENT: MEHDI RANDALL UNIT: [id number] ADM DATE: 10/23/20 AGE: 55 : 65 SEX: M ROOM/BED: D.1226 AUTHOR: ADELAIDA,DOC PHYSICIAN: REFERRING PHYSICIAN: YVETTE BRADEN MD DATE OF SERVICE: 10/27/20 Discharge Plan Patient Name: MEHDI RANDALL Facility: [facility]:[place] : 1965 Planned Disposition: Home Anticipated Discharge Date: Discharge Date: Expected LOS: Initial Reviewer: [email or web address] Initial Review Date: 10/25/2020 Generated: 10/27/20 4:32 pm Comments DCP- Discharge Planning Updated by [email or web address]: Rehana Fortune on 10/27/20 2:[address] Spouse is here to pick patient up. I informed him to vegetable picker his 4 new Rx at [facility], they both voice understanding. I called the pharmacy and they do not have a douglas pugh for me yet. DCP- Discharge Planning Updated by [id number]: Rehana Fortune on 10/27/20 1:[address] Calix here. Dr. Calix states he does not need to stay until he has his trilogy here. I informed him with Medicaid it can take at least 2 weeks for approval. I faxed signed DWO to [email or web address]. I spoke with patient and he would like assistance with his singulair. I called [facility] and orders received. New Rx and [facility]. He states he has all his other medications. [employer] is bringing a portable tank to the room per patient request. Home today. DCP- Discharge Planning Updated by [email or web address]: Rehana Fortune on 10/27/20 10:[address] CM called [email or web address] and spoke with Maral. Maral states with Medicaid insurance, the PCP needs to sign some paper work that she has faxed to Dr. Cunningham's office on the and and has not received it back yet. I called Dr. Cunningham's office and spoke with Anshul. Anshul states they have received the fax, he will get signature and fax to [email or web address] today. I have asked Melita with [facility] ([facility]) to call me about the trilogy. CM will continue to follow and assist with discharge planning/needs. DCP- Discharge Planning Updated by [email or web address]: Rehana Fortune on 10/25/20 4:[address] Patient Name: MEHDI RANDALL Admission Status: ER Accout number: [id number] Admission Date: 10-23-2020 : 1965 Admission Diagnosis:SHORTNESS OF BREATH Attending: YVETTE IRVING Current LOS: 2 Anticipated DC Date: Planned Disposition: Home Primary Insurance: MEDICAID [place] DC PLAN: ANTICIPATED DC NEEDS: CM met with patient to complete initial dc planning assessment. CM educated patient on the CM role and verbal consent given by patient to complete assessment. CM verified patient's address, phone number, and emergency contact phone numbers. Patient lives at home with his spouse and children. At discharge patient plans to return and feels this is a safe discharge. CM discussed availability of home health, rehab services, and medical equipment. Patient denied known discharge needs at this time. I asked him about filling his prescriptions. He states he is using all of his Medicaid slots, but did private pay for the prednisone and could not afford the inhaler. He is unsure if he purchased the gluophage. I called Dr. Benito's office and he is at the maximum slots allowed and cannot add any more slots. I provided the patient with a Good RX card and the coupons to get his medications filled through [facility]. I also told him to check the [employer] [address] Calix informed me that patient needs a trilogy. The patient wishes to use [email or web address]. I called and spoke to Melita and clinical and order faxed. Patient states he was unsure if his oxygen tubing was working correctly and I informed Melita of this. She states that his water bottle was interfering with the connection and they have it working correctly now. Melita states that Medicaid requires authorization for the Trilogy and will notify us when they have auth. Transportation provider at discharge will be his spouse. CM will continue to follow and will assist as needed with dc plans/needs. Management Trainee Program Stores: Rehana Fortune DCPIA - Discharge Planning Initial Assessment Updated by [id number]: Rehana Fortune on 10/25/20 5:41 pm * Is the patient Alert and Oriented? Yes * How many steps to enter\exit or inside your home? 4/0 * PCP Dr. Benito * Pharmacy [facility] * Preadmission Environment Home with Family * ADLs Partial Dependent * Partial ADLs (Assistance needed) Medication Management * Equipment CPAP Nebulizer Other Oxygen * Other Equipment Portable oxygen pulse oximeter * List name and contact numbers for known caregivers / representatives who currently or will assist patient after discharge: Puja [facility] - [phone] * Verbal permission to speak to the caregivers and representatives has been obtained from the patient. Yes * Community resources currently utilized None * Additional services required to return to the preadmission environment? Yes * Can the patient safely return to the preadmission environment? Yes * Has this patient been hospitalized within the prior 30 days at any hospital? Yes Coverage Notice Reviewer: [id number] - Rehana Fortune Notice Issued Date-Time: 10/25/2020 13:30 Notice Type: Patient Choice Letter Notice Delivered To: Patient Relationship to Patient: Self Bacteriologist Dairy Name: Delivery Method: HAND - Hand Delivered Naomi Days: Prior Verbal Notification: Recipient Understood Notice: Yes Recipient Signature: Yes Med Rec Note Co-signed by Attending: Coverage Notice Comment: [facility] DP export: 10/27/20 1:39 p Patient Name: MEHDI RANDALL Page [id number] at 1532 All edits/amendments must be made on the electronic document DICTATION DATE: 10/27/20 153 CHIEF CUSTOMER OFFICER: HARIS 10/27/20 153 RPT#: [id number] DC DATE: STATUS: ADM IN [facility] [address] [place] [address] END OF REPORT
--- NOTE | 2020-10-27 15:41 | NUR ---
SALINE LOCK REMOVED, DISCHARGE INSTRUCTIONS WITH PATIENT AND FAMILY. TRANSPORT TO TAKE TO CAR VIA WHEELCHAIR WITH PORTABLE OXYGEN.
--- NOTE | 2020-10-27 16:15 | MORECARE ---
CASE MANAGEMENT DISCHARGE SUMMARY PATIENT: MEHDI RANDALL UNIT: [id number] ADM DATE: 10/23/20 AGE: 55 : 65 SEX: M ROOM/BED: D.7216 AUTHOR: ADELAIDA,DOC PHYSICIAN: REFERRING PHYSICIAN: YVETTE BRADEN MD DATE OF SERVICE: 10/27/20 Discharge Plan Patient Name: MEHDI RANDALL Facility: [facility]:[place] : 1965 Planned Disposition: Home Anticipated Discharge Date: Discharge Date: 10/27/2020 Expected LOS: Initial Reviewer: [email or web address] Initial Review Date: 10/25/2020 Generated: 10/27/20 5:15 pm Comments DCP- Discharge Planning Updated by [email or web address]: Rehana Fortune on 10/27/20 3:[address] Prices for New Rx sent to [facility] as follow Omnicef - 9.48, Azithromycin - $13, Singulair #30 - 17.52 and Prednisone #30 - $10.91. Patient to pickers material handlers at pharmacy on his way home. DCP- Discharge Planning Updated by [id number]: Rehana Fortune on 10/27/20 2:[address] Spouse is here to pick patient up. I informed him to pickers material handlers his 4 [facility] Rx at [facility], they both voice understanding. I called the pharmacy and they do not have a douglas pugh for me yet. DCP- Discharge Planning Updated by [id number]: Rehana Fortune on 10/27/20 1:[address] Calix here. Dr. Calix states he does not need to stay until he has his trilogy here. I informed him with Medicaid it can take at least 2 weeks for approval. I faxed signed DWO to [employer]. I spoke with patient and he would like assistance with his singulair. I called [facility] and orders received. New Rx and [facility]ulair [facility]. He states he has all his other medications. [employer] is bringing a portable tank to the room per patient request. Home today. DCP- Discharge Planning Updated by [id number]: Rehana Fortune on 10/27/20 10:[address] CM called [employer] and spoke with Maral. Maral states with Medicaid insurance, the PCP needs to sign some paper work that she has faxed to Dr. Cunningham's office on the and and has not received it back yet. I called Dr. Cunningham's office and spoke with Anshul. Anshul states they have received the fax, he will get signature and fax to [facility] today. I have asked Melita with [facility] ([place]) to call me about the trilogy. CM will continue to follow and assist with discharge planning/needs. DCP- Discharge Planning Updated by [id number]: Rehana Fortune on 10/25/20 4:[address] Patient Name: MEHDI RANDALL Admission Status: ER Accout number: [id number] Admission Date: 10-23-2020 : 1965 Admission Diagnosis:SHORTNESS OF BREATH Attending: YVETTE IRVING Current LOS: 2 Anticipated DC Date: Planned Disposition: Home Primary Insurance: MEDICAID [place] DC PLAN: ANTICIPATED DC NEEDS: CM met with patient to complete initial dc planning assessment. CM educated patient on the CM role and verbal consent given by patient to complete assessment. CM verified patient's address, phone number, and emergency contact phone numbers. Patient lives at home with his spouse and children. At discharge patient plans to return and feels this is a safe discharge. CM discussed availability of home health, rehab services, and medical equipment. Patient denied known discharge needs at this time. I asked him about filling his prescriptions. He states he is using all of his Medicaid slots, but did private pay for the prednisone and could not afford the inhaler. He is unsure if he purchased the gluophage. I called Dr. Benito's office and he is at the maximum slots allowed and cannot add any more slots. I provided the patient with a Good RX card and the coupons to get his medications filled through [facility]. I also told him to check the [employer] [address] Calix informed me that patient needs a trilogy. The patient wishes to use [employer]. I called and spoke to Melita and [employer] and order faxed. Patient states he was unsure if his oxygen tubing was working correctly and I informed Melita of this. She states that his water bottle was interfering with the connection and they have it working correctly now. Melita states that Medicaid requires authorization for the Trilogy and will notify us when they have auth. Transportation provider at discharge will be his spouse. CM will continue to follow and will assist as needed with dc plans/needs. Bottle Label Inspector: Rehana Fortune DCPIA - Discharge Planning Initial Assessment Updated by [email or web address]: Rehana Fortune on 10/25/20 5:41 pm * Is the patient Alert and Oriented? Yes * How many steps to enter\exit or inside your home? 4/0 * PCP Dr. Benito * Pharmacy [facility] * Preadmission Environment Home with Family * ADLs Partial Dependent * Partial ADLs (Assistance needed) Medication Management * Equipment CPAP Nebulizer Other Oxygen * Other Equipment Portable oxygen pulse oximeter * List name and contact numbers for known caregivers / representatives who currently or will assist patient after discharge: Puja [facility] - [phone] * Verbal permission to speak to the caregivers and representatives has been obtained from the patient. Yes * Community resources currently utilized None * Additional services required to return to the preadmission environment? Yes * Can the patient safely return to the preadmission environment? Yes * Has this patient been hospitalized within the prior 30 days at any hospital? Yes Coverage Notice Reviewer: [id number] - Rehana Devika Notice Issued Date-Time: 10/25/2020 13:30 Notice Type: Patient Choice Letter Notice Delivered To: Patient Relationship to Patient: Self Bar Tacker Sewing Machine Name: Delivery Method: HAND - Hand Delivered Naomi Days: Prior Verbal Notification: Recipient Understood Notice: Yes Recipient Signature: Yes Med Rec Note Co-signed by Attending: Coverage Notice Comment: [facility] Last DP export: 10/27/20 2:33 p Patient Name: MEHDI RANDALL Page [phone] at 1615 All edits/amendments must be made on the electronic document DICTATION DATE: 10/27/20 1615 FACILITY MAINTENANCE TECHNICIAN: HARIS 10/27/20 1615 RPT#: [id number] DC DATE:10/27/20 STATUS: DIS IN [facility] [address] [place] [address] END OF REPORT
--- NOTE | 2020-10-30 08:22 | MORECARE ---
CASE MANAGEMENT DISCHARGE SUMMARY PATIENT: MEHDI RANDALL UNIT: [id number] ADM DATE: 10/23/20 AGE: 55 : 65 SEX: M ROOM/BED: D.7896 AUTHOR: ADELAIDA,DOC PHYSICIAN: REFERRING PHYSICIAN: YVETTE BRADEN MD DATE OF SERVICE: 10/30/20 Discharge Plan Patient Name: MEHDI RANDALL Facility: [facility]:[place] : 1965 Planned Disposition: Home Anticipated Discharge Date: Discharge Date: 10/27/2020 Expected LOS: Initial Reviewer: [email or web address] Initial Review Date: 10/25/2020 Generated: 10/30/20 9:21 am Comments DCP- Discharge Planning Updated by [id number]: Rehana Fortune on 10/27/20 2:[address] Prices for New Rx sent to [facility] as follow Omnicef - 9.48, Azithromycin - $13, Singulair #30 - 17.52 and Prednisone #30 - $10.91. Patient to oyster picker at pharmacy on his way home. DCP- Discharge Planning Updated by [id number]: Rehana Fortune on 10/27/20 1:[address] Spouse is here to pick patient up. I informed him to oyster picker his 4 new Rx at [facility], they both voice understanding. I called the pharmacy and they do not have a douglas pugh for me yet. DCP- Discharge Planning Updated by [id number]: Rehana Fortune on 10/27/20 12:[address] Calix here. Dr. Calix states he does not need to stay until he has his trilogy here. I informed him with Medicaid it can take at least 2 weeks for approval. I faxed signed DWO to [employer]. I spoke with patient and he would like assistance with his singulair. I called [facility] and orders received. New Rx and singulair called into the [facility]. He states he has all his other medications. [employer] is bringing a portable tank to the room per patient request. Home today. DCP- Discharge Planning Updated by [id number]: Rehana Fortune on 10/27/20 9:[address] CM called [employer] and spoke with Maral. Maral states with Medicaid insurance, the PCP needs to sign some paper work that she has faxed to Dr. Cunningham's office on the and and has not received it back yet. I called Dr. Cunningham's office and spoke with Anshul. Anshul states they have received the fax, he will get signature and fax to [facility] today. I have asked Melita with [facility] ([facility]) to call me about the trilogy. CM will continue to follow and assist with discharge planning/needs. DCP- Discharge Planning Updated by [email or web address]: Rehana Fortune on 10/25/20 3:[address] Patient Name: MEHDI RANDALL Admission Status: ER Accout number: [id number] Admission Date: 10-23-2020 : 1965 Admission Diagnosis:SHORTNESS OF BREATH Attending: YVETTE IRVING Current LOS: 2 Anticipated DC Date: Planned Disposition: Home Primary Insurance: MEDICAID [place] DC PLAN: ANTICIPATED DC NEEDS: CM met with patient to complete initial dc planning assessment. CM educated patient on the CM role and verbal consent given by patient to complete assessment. CM verified patient's address, phone number, and emergency contact phone numbers. Patient lives at home with his spouse and children. At discharge patient plans to return and feels this is a safe discharge. CM discussed availability of home health, rehab services, and medical equipment. Patient denied known discharge needs at this time. I asked him about filling his prescriptions. He states he is using all of his Medicaid slots, but did private pay for the prednisone and could not afford the inhaler. He is unsure if he purchased the gluophage. I called Dr. Benito's office and he is at the maximum slots allowed and cannot add any more slots. I provided the patient with a Good RX card and the coupons to get his medications filled through [facility]. I also told him to check the [employer] [address] Calix informed me that patient needs a trilogy. The patient wishes to use [employer]. I called and spoke to Melita and [employer] and order faxed. Patient states he was unsure if his oxygen tubing was working correctly and I informed Melita of this. She states that his water bottle was interfering with the connection and they have it working correctly now. Melita states that Medicaid requires authorization for the Trilogy and will notify us when they have auth. Transportation provider at discharge will be his spouse. CM will continue to follow and will assist as needed with dc plans/needs. Aids Counselor: Rehana Fortune DCPIA - Discharge Planning Initial Assessment Updated by [email or web address]: Rehana Fortune on 10/25/20 5:41 pm * Is the patient Alert and Oriented? Yes * How many steps to enter\exit or inside your home? 4/0 * PCP Dr. Benito * Pharmacy [facility] * Preadmission Environment Home with Family * ADLs Partial Dependent * Partial ADLs (Assistance needed) Medication Management * Equipment CPAP Nebulizer Other Oxygen * Other Equipment Portable oxygen pulse oximeter * List name and contact numbers for known caregivers / representatives who currently or will assist patient after discharge: [facility] - [phone] * Verbal permission to speak to the caregivers and representatives has been obtained from the patient. Yes * Community resources currently utilized None * Additional services required to return to the preadmission environment? Yes * Can the patient safely return to the preadmission environment? Yes * Has this patient been hospitalized within the prior 30 days at any hospital? Yes Coverage Notice Reviewer: [id number] - Rehana Devika Notice Issued Date-Time: 10/25/2020 13:30 Notice Type: Patient Choice Letter Notice Delivered To: Patient Relationship to Patient: Self Public Health Dentist Name: Delivery Method: HAND - Hand Delivered Naomi Days: Prior Verbal Notification: Recipient Understood Notice: Yes Recipient Signature: Yes Med Rec Note Co-signed by Attending: Coverage Notice Comment: [facility] Last DP export: 10/27/20 2:15 p Patient Name: MEHDI RANDALL Page [id number] at 0822 All edits/amendments must be made on the electronic document DICTATION DATE: 10/30/20821 LABOR RELATIONS TEACHER: HARIS 10/30/20821 RPT#: [id number] DC DATE:10/27/20 STATUS: DIS IN [facility] [address] [place] [address] END OF REPORT
== END 2020-10-27 16:01 | disposition home or self-care (01) | DRG 189 ==
LOC: D.ER 10:04 → D.M2 13:31
PROVIDERS: Family Medicine; ADMIT Family Medicine Adult Medicine; ATTEND Family Medicine Adult Medicine
PROC: 5A09457 Assistance with Respiratory Ventilation, 24-96 Consecutive Hours, Continuous Positive Airway Pressure (ICD-10-PCS; principal; 2020-10-25)
DX: J96.21 Acute and chronic respiratory failure with hypoxia (principal); J44.1 Chronic obstructive pulmonary disease with (acute) exacerbation; Z68.41 Body mass index [BMI] 40.0-44.9, adult; J96.22 Acute and chronic respiratory failure with hypercapnia; J45.991 Cough variant asthma; I10 Essential (primary) hypertension; E11.9 Type 2 diabetes mellitus without complications; E78.5 Hyperlipidemia, unspecified; I25.119 Atherosclerotic heart disease of native coronary artery with unspecified angina pectoris; E66.01 Morbid (severe) obesity due to excess calories